=== PATIENT | male | born 1945 | race Hispanic/Latino ===

== ENCOUNTER 2018-05-13 13:10 | Inpatient (IN) | payer BC, MEDICARE ==
--- NOTE | 2018-05-13 13:39 | ED PDOC ---
Arrival/HPI - General Chief Complaint: Abdominal Pain Time Seen by Provider: 05/13/18 13:29 Historian: Patient - History of Present Illness Narrative History of Present Illness (Text): 05/13/18 13:325 73 year old male, whose PMH includes cholecystectomy and psych disorder, who presents to the emergency department complaining of right upper quadrant pain since a couple of days. Patient reports the pain is similar to his PMH of cholecystectomy back in 2014. Patient has not taken any medication and home and refuses pain medication in the emergency department. Patient denies fever, n/v/d , dysruia, shortness of breath, chest pain, headache, or other complaints. PMD: Dr. Gtz Time/Duration: < week Symptom Onset: Gradual Symptom Course: Unchanged Context: Home Past Medical History - Provider Review Nursing Documentation Reviewed: Yes - Cardiac Hx Cardiac Disorders: No - Pulmonary Hx Respiratory Disorders: Yes Hx Pneumonia: Yes - Neurological Hx Neurological Disorder: No - HEENT Hx HEENT Disorder: No - Renal Hx Renal Disorder: No - Endocrine/Metabolic Hx Endocrine Disorders: No - Hematological/Oncological Hx Blood Disorders: No - Integumentary Hx Dermatological Disorder: No - Musculoskeletal/Rheumatological Hx Musculoskeletal Disorders: No (sciatica) - Gastrointestinal Hx Gastrointestinal Disorders: Yes Hx Gall Bladder Disease: Yes Hx Gastroesophageal Reflux: Yes - Genitourinary/Gynecological Hx Genitourinary Disorders: Yes Hx Prostate Problems: Yes - Psychiatric Hx Psychophysiologic Disorder: Yes Hx Depression: Yes Hx Substance Use: No - Surgical History Hx Cholecystectomy: Yes Other/Comment: PROSTATE - Anesthesia Hx Anesthesia Reactions: No Hx Malignant Hyperthermia: No Family/Social History - Physician Review Nursing Documentation Reviewed: Yes Family/Social History: Unknown Family HX Smoking Status: Never Smoked Hx Alcohol Use: No (social) Hx Substance Use: No Allergies/Home Meds Allergies/Adverse Reactions: Allergies No Known Allergies Allergy (Verified 05/13/18 13:14) Home Medications: Home Meds Medication Instructions Recorded Confirmed Escitalopram Oxalate [Lexapro] 5 mg PO DAILY 05/13/18 05/13/18 clonazePAM [Klonopin] 0.5 mg PO BID 05/13/18 05/13/18 Review of Systems - Physician Review All systems were reviewed & negative as marked: Yes - Review of Systems Constitutional: absent: Fevers Respiratory: absent: SOB Cardiovascular: absent: Chest Pain Gastrointestinal: Abdominal Pain (right upper quadrant ) Physical Exam Vital Signs Reviewed: Yes Vital Signs Temp Pulse Resp BP Pulse Ox 05/13/18 17:30 98 H 18 137/77 94 L 05/13/18 15:11 90 18 140/78 95 05/13/18 13:18 99.9 F H 107 H 16 127/77 95 Temperature: Febrile Blood Pressure: Normal Pulse: Tachycardic Respiratory Rate: Normal Appearance: Positive for: Well-Appearing, Non-Toxic, Comfortable Pain Distress: None Mental Status: Positive for: Alert and Oriented X 3 - Systems Exam Head: Present: Atraumatic, Normocephalic Pupils: Present: PERRL Extroacular Muscles: Present: EOMI Conjunctiva: Present: Normal Respiratory/Chest: Present: Clear to Auscultation, Good Air Exchange. No: Respiratory Distress, Accessory Muscle Use, Wheezes, Decreased Breath Sounds, Rales, Retracting, Rhonchi Cardiovascular: Present: Regular Rate and Rhythm, Normal S1, S2. No: Murmurs Abdomen: Present: Tenderness (RUQ), Normal Bowel Sounds. No: Distention, Peritoneal Signs, Rebound, Guarding Neurological: Present: GCS=15, CN II-XII Intact, Speech Normal Skin: Present: Warm, Dry, Normal Color. No: Rashes Psychiatric: Present: Alert, Oriented x 3, Normal Insight, Normal Concentration Medical Decision Making ED Course and Treatment: 05/13/18 13:40 Impression: 73 year old male with right upper quadrant tenderness complaining of abdominal pain for a couple of days. Plan: -- CT abdomen and pelvis -- Reassess and disposition Prior Visits: Notes and results from previous visits were reviewed. Progress Notes: 05/13/18 17:39 CT scan diagnosed acute appendicitis. Patient has been informed of his diagnosis and treatment plan. Patient states his last meal was at 12:30. Case was also discussed with physician president, and agree to admit patient under Dr. Madden's care. - Lab Interpretations Lab Results: 05/13/18 14:30 05/13/18 14:30 Lab Results 05/13/18 14:30: Sodium 137, Potassium 3.8, Chloride 95 L, Carbon Dioxide 31, Anion Gap 14, BUN 18, Creatinine 1.1, Est GFR ( Amer) > 60, Est GFR (Non- Af Amer) > 60, Random Glucose 165 H, Calcium 8.8, Phosphorus 1.9 L, Magnesium 1.9, Total Bilirubin 2.7 H, Direct Bilirubin 0.2, AST 19, ALT 18, Alkaline Phosphatase 50, Total Protein 7.0, Albumin 4.0, Globulin 3.0, Albumin/Globulin Ratio 1.3, Amylase 49, Lipase 16 L 05/13/18 14:30: PT 17.0 H, INR 1.48 05/13/18 14:30: WBC 12.4 H, RBC 5.36, Hgb 15.5, Hct 46.4, MCV 86.6, MCH 28.9, MCHC 33.4, RDW 13.9, Plt Count 127, MPV 10.0, Gran % 91.0 H, Lymph % (Auto) 5.8 L, [place] % (Auto) 3.1, Eos % (Auto) 0.0 L, Baso % (Auto) 0.1, Gran # 11.27 H, Lymph # (Auto) 0.7 L, [place] # (Auto) 0.4, Eos # (Auto) 0.0, Baso # (Auto) 0.01, Neutrophils % (Manual) 90 H, Lymphocytes % (Manual) 5 L, Monocytes % (Manual) 1 , Eosinophils % (Manual) 1, Metamyelocytes % 2, Myelocytes % 1, Platelet Evaluation Normal I have reviewed the lab results: Yes - RAD Interpretation Radiology Orders: 05/13/18 13:32 ABD PELVIS PO & IV CONTRAST [CT] Stat 05/13/18 17:48 ABSCESS DRAINAGE [CT] Stat Grinder Hand: Radiologist - Medication Orders Current Medication Orders: Hydromorphone HCl (Dilaudid) 0.5 mg IVP Q4H PRN PRN Reason: Pain, moderate (4-7) Metronidazole (Flagyl) 500 mg in 100 mls @ 100 mls/hr IVPB STAT STA PRN Reason: Protocol Stop: 05/13/18 18:26 Levofloxacin/Dextrose (Levaquin 750mg) 750 mg in 150 mls @ 100 mls/hr IVPB STAT STA PRN Reason: Protocol Stop: 05/13/18 18:56 Sodium Chloride (Sodium Chloride 0.9%) 1,000 mls @ 100 mls/hr IV .Q10H SAIGE Discontinued Medications Morphine Sulfate (Morphine) 4 mg IVP STAT STA Stop: 05/13/18 17:27 Last Admin: 05/13/18 17:32 Dose: 4 mg MAR Pain Assessment Document 05/13/18 17:32 GMD (Rec: 05/13/18 17:32 GMD [id number]) Pain Reassessment Is this a pain reassessment? No Presence of Pain Presence of Pain Yes Pain Scale Used Pain Scale Used Numeric Description Intensity of Pain at present 7 IVP Administration Document 05/13/18 17:32 GMD (Rec: 05/13/18 17:32 GMD [id number]) Charges for Administration # of IVP Administrations 1 Ondansetron HCl (Zofran Inj) 4 mg IVP STAT STA Stop: 05/13/18 17:27 Last Admin: 05/13/18 17:32 Dose: 4 mg IVP Administration Document 05/13/18 17:32 GMD (Rec: 05/13/18 17:32 GMD [id number]) Charges for Administration # of IVP Administrations 1 - Scribe Statement The provider has reviewed the documentation as recorded by the Scribe Scribe Attestation: Cata Guerrero MD Scribe Attestation: All medical record entries made by the Scribe were at my direction and personally dictated by me. I have reviewed the chart and agree that the record accurately reflects my personal performance of the history, physical exam, medical decision making, and the department course for this patient. I have also personally directed, reviewed, and agree with the discharge instructions and disposition. Disposition/Present on Arrival - Present on Arrival Any Indicators Present on Arrival: No History of DVT/PE: No History of Uncontrolled Diabetes: No Urinary Catheter: No History of Decub. Ulcer: No History Surgical Site Infection Following: None - Disposition Have Diagnosis and Disposition been Completed?: Yes Diagnosis: Acute appendicitis Disposition Time: 17:59 Patient Plan: Admission, Other (Regular Medical Floor) Condition: GOOD Referrals: Cliff Gtz MD [Primary Care Provider] - Follow up with primary Forms: Values of n (Israeli)
[2018-05-13] MEDS ORDERED: Iohexol 240 (50 ml) ONE (13:41)
[2018-05-13 14:51] LABS: BASO # 0.01 K/mm3 (0.0-2.0); BASO % 0.1 % (0.0-3.0); GRAN # 11.27 (1.4-6.5); HEMOGLOBIN 15.5 g/dL (14.0-18.0); LYMPH # 0.7 (1.2-3.4); LYMPH % 5.8 % (22.0-35.0); MEAN CELL VOLUME 86.6 fl (80.0-105.0); MEAN CORPUSCULAR HEMOGLOBIN 28.9 pg (25.0-35.0); MEAN CORPUSCULAR HGB CONC 33.4 g/dl (31.0-37.0); MONO # 0.4 (0.1-0.6); MONO % 3.1 % (1.0-6.0); PLATELET COUNT 127 10^3/uL (120.0-450.0); RBC 5.36 10^6/uL (3.5-6.1); RED CELL DISTRIBUTION WIDTH 13.9 % (11.5-14.5); WHITE BLOOD COUNT 12.4 10^3/ul (4.5-11.0)
[2018-05-13 15:07] LABS: ALB/GLOB RATIO 1.3 (1.1-1.8); ALT/SGPT 18 U/L (7-56); AMYLASE 49 U/L (35-125); AST/SGOT 19 U/L (17-59); BILIRUBIN,DIRECT 0.2 mg/dL (0.0-0.4); BLOOD UREA NITROGEN 18 mg/dL (7-21); CALCIUM 8.8 mg/dL (8.4-10.5); GFR AFRICAN-AMERICAN > 60; GFR NON-AFRICAN AMERICAN > 60; INR 1.48; LIPASE 16 U/L (23-300)
[2018-05-13 15:20] LABS: EOSINOPHIL 1 % (0.0-3.0); LYMPHOCYTE 5 % (22.0-35.0); METAMYELOCYTE 2 %; MONOCYTE 1 % (1.0-6.0); MYELOCYTE 1 %; NEUTROPHIL 90 % (50.0-70.0); PLATELET ESTIMATE NORMAL (NORMAL)
[2018-05-13] MEDS ORDERED: Iohexol 350 MG/100 ML VIAL ONE (15:35)
[2018-05-13] MEDS ORDERED: Morphine 4 mg/ml ISec IVP STA (17:26)
[2018-05-13] MEDS ORDERED: metroNIDAZOLE IV 500 mg/100 ml 500 MG/100 ML BAG IVPB STA (17:27)
[2018-05-13] MEDS ORDERED: levoFLOXacin 750 mg in D5W 750 MG/150 ML BAG IVPB STA (17:27)
--- NOTE | 2018-05-13 17:30 | CT ---
Date of service: 05/13/2018 PROCEDURE: CT Abdomen and Pelvis with contrast HISTORY: RUQ PAIN, S/P [facility] 2014 COMPARISON: 07/06/2013 TECHNIQUE: Contrast dose: 100 cc of Omni 350 Radiation dose: Total exam DLP = 1070 mGy-cm. This CT exam was performed using one or more of the following dose reduction techniques: Automated exposure control, adjustment of the mA and/or kV according to patient size, and/or use of iterative reconstruction technique. FINDINGS: LOWER THORAX: Unremarkable. LIVER: Unremarkable. No gross lesion or ductal dilatation. GALLBLADDER AND BILE DUCTS: Unremarkable. PANCREAS: Unremarkable. No gross lesion or ductal dilatation. SPLEEN: Unremarkable. ADRENALS: Unremarkable. No mass. KIDNEYS AND URETERS: Unremarkable. No hydronephrosis. No solid mass. VASCULATURE: Unremarkable. No aortic aneurysm. BOWEL: Unremarkable. No obstruction. No gross mural thickening. APPENDIX: There is evidence of acute appendicitis. Inflammatory changes are seen in the mesentery. The appendix is directed superiorly laterally and is non-opacified measuring 10 mm in diameter. There is also mural thickening in the adjacent cecum. There is a small fluid collection and extra luminal gas adjacent to the cecum consistent with an appendiceal abscess. This measures 3 cm in length by 1.6 cm diameter. There is also some inflammation and thickening of the right lateral abdominal wall. PERITONEUM: There is a well-circumscribed fluid collection on the left side of the pelvis adjacent to the bladder. This is of uncertain significance. There is no air within this collection to suggest abscess. This measures 32 x 49 mm. LYMPH NODES: Unremarkable. No enlarged lymph nodes. BLADDER: Unremarkable. REPRODUCTIVE: Unremarkable. BONES: No acute fracture. OTHER FINDINGS: The findings were discussed with Dr. Mcgovern at 5:20 p.m. IMPRESSION: Acute appendicitis with probable small appendiceal abscess. There is also mural thickening in the cecum and thickening of the abdominal wall.
[2018-05-13] MEDS: Sodium Chloride 0.9% 1,000 ML IV SCH (18:09)
--- NOTE | 2018-05-13 18:46 | CP.PCM.HP ---
History of Present Illness - History of Present Illness History of Present Illness: Surgery 73 M w PMH of depression prostate CA and PSH of cholecystectomy , prostatectomy came with RLQ abd pain. Pain started 1 week ago and but went away. Pain recurred yesterday. Localized, sharp pain. Radiates to his R back. Denies fever , nausea, vomiting, diarrhea, CP , SOB, dysuria, hematuria, hematochezia, hematemesis. Has Leukocytosis w L shift. CT shows acute appendiciti with possible 3x1.5cm abscess and cecal thickening. Reports anorexia. Pt is consented for OR tomorrow AM for appendectomy. PMH see above PSH see above Meds lexapro, abilify Present on Admission - Present on Admission Any Indicators Present on Admission: No Review of Systems - Review of Systems Review of Systems: See HPI Past Patient History - Past Social History Smoking Status: Never Smoked - CARDIAC Hx Cardiac Disorders: No - PULMONARY Hx Respiratory Disorders: Yes Hx Pneumonia: Yes - NEUROLOGICAL Hx Neurological Disorder: No - HEENT Hx HEENT Problems: No - RENAL Hx Chronic Kidney Disease: No - ENDOCRINE/METABOLIC Hx Endocrine Disorders: No - HEMATOLOGICAL/ONCOLOGICAL Hx Blood Disorders: No - INTEGUMENTARY Hx Dermatological Problems: No - MUSCULOSKELETAL/RHEUMATOLOGICAL Hx Musculoskeletal Disorders: No (sciatica) - GASTROINTESTINAL Hx Gastrointestinal Disorders: Yes Hx Gall Bladder Disease: Yes Hx Gastroesophageal Reflux: Yes - GENITOURINARY/GYNECOLOGICAL Hx Genitourinary Disorders: Yes Hx Prostate Problems: Yes - PSYCHIATRIC Hx Psychophysiologic Disorder: Yes Hx Depression: Yes Hx Substance Use: No - SURGICAL HISTORY Hx Cholecystectomy: Yes Other/Comment: PROSTATE - ANESTHESIA Hx Anesthesia Reactions: No Hx Malignant Hyperthermia: No Meds Allergies/Adverse Reactions: Allergies Allergy/AdvReac Type Severity Reaction Status Date / Time No Known Allergies Allergy Verified 05/13/18 13:14 Physical Exam - Constitutional Appears: Non-toxic - Head Exam Head Exam: ATRAUMATIC, NORMAL INSPECTION, NORMOCEPHALIC - Eye Exam Eye Exam: EOMI, Normal appearance, PERRL Pupil Exam: NORMAL ACCOMODATION, PERRL - ENT Exam ENT Exam: Mucous Membranes Moist, Normal Exam - Neck Exam Neck exam: Positive for: Normal Inspection - Respiratory Exam Respiratory Exam: NORMAL BREATHING PATTERN - Cardiovascular Exam Cardiovascular Exam: REGULAR RHYTHM - GI/Abdominal Exam GI & Abdominal Exam: Normal Bowel Sounds, Rebound, Soft, Tenderness. absent: Distended, Firm, Guarding, Hernia, Rigid Additional comments: RLQ TTP. - Extremities Exam Extremities exam: Positive for: normal inspection - Back Exam Back exam: NORMAL INSPECTION - Neurological Exam Neurological exam: Alert, CN II-XII Intact, Normal Gait, Oriented x3, Reflexes Normal - Psychiatric Exam Psychiatric exam: Normal Affect, Normal Mood - Skin Skin Exam: Dry, Intact, Normal Color, Warm Results - Vital Signs Recent Vital Signs: Last Vital Signs Temp 99.9 F H 05/13/18 13:18 Pulse 98 H 05/13/18 17:30 Resp 18 05/13/18 17:30 BP 137/77 05/13/18 17:30 Pulse Ox 94 L 05/13/18 17:30 - Labs Result Diagrams: 05/13/18 14:30 05/13/18 14:30 Assessment & Plan - Assessment and Plan (Free Text) Assessment: acute Appendicitis WBC 12.[address] acute appy poss 3x1.5cm abscess and loculated fluid collection -OR tomorrow AM lap appy -NPO -IVF -ABX -Nuaea/pain control -DVT/Gi ppx PETROS Neely
[2018-05-13 20:27] LABS: URINE BILIRUBIN NEGATIVE (NEGATIVE); URINE BLOOD SMALL (NEGATIVE); URINE GLUCOSE (UA) NEGATIVE (NEGATIVE); URINE LEUKOCYTE ESTERASE NEGATIVE Leu/uL (NEGATIVE); URINE PROTEIN 30 mg/dL (<30 mg/dL)
[2018-05-13 20:33] LABS: URINE APPEARANCE CLEAR (CLEAR); URINE COLOR YELLOW (YELLOW)
[2018-05-13 20:48] LABS: URINE BACTERIA MOD (NEG)
[2018-05-14] MEDS ORDERED: Piperacillin/Tazobact 3.375 gm 100 ML IVPB SCH
[2018-05-14] MEDS: Piperacillin/Tazobact 3.375 gm 100 ML IVPB SCH ×5 (00:30→23:01)
[2018-05-14 03:22] VITALS: BMI 25.1
[2018-05-14] MEDS: Sodium Chloride 0.9% 1,000 ML IV SCH ×4 (06:46→23:01)
[2018-05-14 07:49] LABS: EOS % 0.2 % (1.5-5.0); GRAN # 9.23 (1.4-6.5); GRAN % 90.2 % (50.0-68.0); HEMOGLOBIN 13.3 g/dL (14.0-18.0); LYMPH # 0.5 (1.2-3.4); MEAN CELL VOLUME 85.8 fl (80.0-105.0); MEAN CORPUSCULAR HEMOGLOBIN 28.1 pg (25.0-35.0); MEAN CORPUSCULAR HGB CONC 32.8 g/dl (31.0-37.0); MONO # 0.5 (0.1-0.6); MONO % 4.6 % (1.0-6.0); RBC 4.73 10^6/uL (3.5-6.1); RED CELL DISTRIBUTION WIDTH 13.9 % (11.5-14.5); WHITE BLOOD COUNT 10.2 10^3/ul (4.5-11.0)
[2018-05-14 08:11] LABS: ALB/GLOB RATIO 1.1 (1.1-1.8); ALBUMIN 3.3 g/dL (3.0-4.8); ALT/SGPT 54 U/L (7-56); AST/SGOT 50 U/L (17-59); BLOOD UREA NITROGEN 17 mg/dL (7-21); CALCIUM 7.8 mg/dL (8.4-10.5); GFR AFRICAN-AMERICAN > 60; GFR NON-AFRICAN AMERICAN > 60
--- NOTE | 2018-05-14 09:59 | RAD ---
Date of service: 05/14/2018 HISTORY: OR today COMPARISON: 07/12/2013 FINDINGS: LUNGS: The lungs are well inflated and clear. PLEURA: No significant pleural effusion identified, no pneumothorax apparent. CARDIOVASCULAR: Normal. OSSEOUS STRUCTURES: No significant abnormalities. VISUALIZED UPPER ABDOMEN: Normal. OTHER FINDINGS: None. IMPRESSION: No active pulmonary disease.
--- NOTE | 2018-05-14 18:02 | CP.PCM.CON ---
History of Present Illness - History of Present Illness History of Present Illness: 73 year old male with PMH of S/P cholecystectomy, S/P prostatectomy, history of depression, history of pneumonia came in to [facility] complaining of right lower quadrant pain, which started a week ago, and it was mild at the time. It was initially vague, then became localized to the RLQ area, associated with nausea. He denies having fever or chills, no vomiting, no diarrhea, no melena, no hematochezia, no chest pain, no SOB, no headache or dizziness, no sore throat, no dysuria. CT scan is showing acute appendicitis with probable abscess formation. Infectious Diseases consult is requested to further evaluate and manage. Review of Systems - Review of Systems All systems: reviewed and no additional remarkable complaints except (as per HPI ) Past Patient History - Past Social History Smoking Status: Never Smoked - CARDIAC Hx Cardiac Disorders: No - PULMONARY Hx Respiratory Disorders: Yes Hx Pneumonia: Yes - NEUROLOGICAL Hx Neurological Disorder: No - HEENT Hx HEENT Problems: No - RENAL Hx Chronic Kidney Disease: No - ENDOCRINE/METABOLIC Hx Endocrine Disorders: No - HEMATOLOGICAL/ONCOLOGICAL Hx Blood Transfusions: No Hx Blood Transfusion Reaction: No - INTEGUMENTARY Hx Dermatological Problems: No - MUSCULOSKELETAL/RHEUMATOLOGICAL Hx Musculoskeletal Disorders: Yes (sciatica) Hx Falls: No - GASTROINTESTINAL Hx Gastrointestinal Disorders: Yes Hx Gall Bladder Disease: Yes (Cholecystectomy) Hx Gastroesophageal Reflux: Yes - GENITOURINARY/GYNECOLOGICAL Hx Genitourinary Disorders: Yes Hx Prostate Problems: Yes (prostate ca with prostatectomy) - PSYCHIATRIC Hx Psychophysiologic Disorder: Yes Hx Depression: Yes Hx Substance Use: No - SURGICAL HISTORY Hx Surgeries: Yes - ANESTHESIA Hx Anesthesia Reactions: No Hx Malignant Hyperthermia: No Meds Allergies/Adverse Reactions: Allergies Allergy/AdvReac Type Severity Reaction Status Date / Time No Known Allergies Allergy Verified 05/13/18 13:14 - Medications Medications: Current Medications Acetaminophen (Tylenol 650 Mg Supp) 650 mg RC Q4H PRN PRN Reason: Fever >100.4 F Acetaminophen (Tylenol 325mg Tab) 650 mg PO Q6H PRN PRN Reason: Fever >100.4 F Hydromorphone HCl (Dilaudid) 0.5 mg IVP Q4H PRN PRN Reason: Pain, moderate (4-7) Piperacillin Sod/Tazobactam Sod (Zosyn 3.375 In Ns 100ml) 100 mls @ 200 mls/hr IVPB Q6 SAIGE PRN Reason: Protocol Stop: 05/23/18 00:01 Last Admin: 05/14/18 06:33 Dose: 200 mls/hr Sodium Chloride (Sodium Chloride 0.9%) 1,000 mls @ 150 mls/hr IV .Q6H40M SAIGE Ondansetron HCl (Zofran Inj) 4 mg IVP Q4 PRN PRN Reason: Nausea/Vomiting Physical Exam - Constitutional Appears: Non-toxic - Head Exam Head Exam: NORMAL INSPECTION - ENT Exam ENT Exam: Mucous Membranes Moist - Neck Exam Neck exam: Negative for: Meningismus - Respiratory Exam Respiratory Exam: Decreased Breath Sounds - Cardiovascular Exam Cardiovascular Exam: +S1, +S2 - GI/Abdominal Exam GI & Abdominal Exam: Soft, Tenderness. absent: Distended, Firm, Guarding, Rebound, Rigid Results - Vital Signs Recent Vital Signs: Last Vital Signs Temp 98.1 F 05/14/18 09:04 Pulse 74 05/14/18 09:04 Resp 18 05/14/18 09:04 BP 127/67 05/14/18 09:04 Pulse Ox 96 05/14/18 09:04 - Labs Result Diagrams: 05/14/18 06:00 05/14/18 06:00 Labs: Laboratory Results - last 24 hr 05/13/18 05/14/18 05/14/18 20:05 06:00 06:00 WBC 10.2 RBC 4.73 Hgb 13.3 L D Hct 40.6 L MCV 85.8 MCH 28.1 MCHC 32.8 RDW 13.9 Plt Count 104 L MPV 10.0 Gran % 90.2 H Lymph % (Auto) 5.0 L [place] % (Auto) 4.6 Eos % (Auto) 0.2 L Baso % (Auto) 0.0 Gran # 9.23 H Lymph # (Auto) 0.5 L [place] # (Auto) 0.5 Eos # (Auto) 0.0 Baso # (Auto) 0.00 Sodium 138 Potassium 3.7 Chloride 99 Carbon Dioxide 31 Anion Gap 12 BUN 17 Creatinine 1.0 Est GFR ( Amer) > 60 Est GFR (Non-Af Amer) > 60 Random Glucose 101 Calcium 7.8 L Total Bilirubin 3.1 H AST 50 ALT 54 Alkaline Phosphatase 80 Total Protein 6.2 Albumin 3.3 Globulin 2.9 Albumin/Globulin Ratio 1.1 Urine Color Yellow Urine Appearance Clear Urine pH 6.0 Ur Specific [place] 1.010 Urine Protein 30 H Urine Glucose (UA) Negative Urine Ketones Negative Urine Blood Small H Urine Nitrate Negative Urine Bilirubin Negative Urine Urobilinogen 2.0 H Ur Leukocyte Esterase Negative Urine RBC 5 - 10 Urine WBC 2 - 5 Ur Epithelial Cells 3 - 4 Urine Bacteria Mod Assessment & Plan - Assessment and Plan (Free Text) Plan: Assessment Acute appendicitis with appendiceal abscess S/P cholecystectomy S/P prostatectomy history of depression history of pneumonia Plan Started Zosyn pending blood cx, OR cx and pathology - patient is for surgery today will monitor clinically
[2018-05-14] MEDS ORDERED: DiphenhydrAMINE 50 mg/ml Inj IVP STA (20:58)
--- NOTE | 2018-05-14 22:38 | CARD ---
APPROVED REPORT Date of service: 05/14/2018 EKG Measurement Heart [id number] <Conclusion> Normal sinus rhythm Normal ECG
[2018-05-15] MEDS: Piperacillin/Tazobact 3.375 gm 100 ML IVPB SCH ×3 (05:59→19:12)
[2018-05-15 06:58] LABS: HEMOGLOBIN 12.7 g/dL (14.0-18.0); MEAN CELL VOLUME 84.3 fl (80.0-105.0); MEAN CORPUSCULAR HEMOGLOBIN 28.5 pg (25.0-35.0); MEAN CORPUSCULAR HGB CONC 33.8 g/dl (31.0-37.0); MEAN PLATELET VOLUME 10.4 fl (7.0-11.0); RBC 4.46 10^6/uL (3.5-6.1); RED CELL DISTRIBUTION WIDTH 13.7 % (11.5-14.5); WHITE BLOOD COUNT 9.7 10^3/ul (4.5-11.0)
--- NOTE | 2018-05-15 07:03 | CON ---
Copied To: Robert Olivares MD Attending MD: Robert Olivares MD DATE: 05/14/2018 CHIEF COMPLAINT AND HISTORY OF PRESENT ILLNESS: This is a 73-year-old male, who is coming to the hospital complaining of right-sided abdominal pain and the patient states that this right-sided abdominal pain started about a week ago, this has been progressively getting worse. He came in for further evaluation. The patient does have a history of cholecystectomy done in 2014. He states that his pain is controlled, it is better than when he first came into the hospital. He has no complaints of any fevers or chills. No nausea. No vomiting. He is also complaining of pain that went into the right side of his back. He had a CAT scan done that showed acute appendicitis, the possible abscess was 3 x 1.5 cm. He is scheduled to go to the OR today. REVIEW OF SYMPTOMS: All other review of symptoms are within normal limits except what was mentioned. ALLERGIES: HE HAS NO KNOWN DRUG ALLERGIES. HOME MEDICATIONS: Have been reviewed on the [facility]. He is on Lexapro and Abilify. PAST SURGICAL HISTORY: Cholecystectomy and prostatectomy. PAST MEDICAL HISTORY: Prostate cancer and depression. SOCIAL HISTORY: He denies alcohol. PHYSICAL EXAMINATION: VITAL SIGNS: Temperature is 99.9, pulse of 107, blood pressure is 127/77, respirations 16, O2 saturation is 95%. GENERAL: The patient lying in bed, uncomfortable, and in no acute distress. HEENT: Atraumatic and normocephalic. Anicteric sclerae. Moist mucosa. [address] conjunctivae. No oral lesions. NECK: No JVD, anterior and posterior adenopathy, thyromegaly, or bruits. CARDIOVASCULAR: S1 and S2 regular. No murmur, rubs, or gallop. LUNGS: Clear to auscultation bilaterally. No wheezes, rales, or rhonchi. ABDOMEN: Bowel sounds are positive. Soft, has right-sided lower abdominal tenderness. No rebound and no guarding. EXTREMITIES: No cyanosis, clubbing, or edema. NEUROLOGIC: No facial asymmetry. Tongue is midline. No uvula deviation. Power is 5/5 upper extremity and lower extremity. Sensation intact in upper extremity and lower extremity. PSYCHIATRIC: He is awake, alert and oriented x3. No anxiety or depression. He has normal affect. GENITOURINARY: No CVA tenderness. VASCULAR: 2+ pulses in the carotid pulses and pedal pulses. SKIN: No erythema or nodules SPINE: Shows normal curvature. LABORATORY DATA: Labs have been reviewed. White count of 12.4. He has a creatinine of 1.1. His chest x-ray showed no infiltrates. CT scan done and was reviewed, which showed an acute appendicitis. ASSESSMENT: 1. Acute appendicitis. 2. Depression. 3. Dyslipidemia. 4. History of cholecystectomy. 5. . 6. Prostate cancer, with prostatectomy. PLAN: The patient is admitted to the hospital. He is on Dilaudid for pain. The patient is receiving IV fluids. I will decrease the patient's IV fluids. on Tylenol for pain. The patient is receiving Zofran is on antibiotics Zosyn. I have asked Dr. Melendrez to evaluate the patient. The patient has white count that is improved. He is back to normal. He has blood cultures. I did not see blood cultures ordered. The patient is on clear liquid diet. The patient is at risk of having delirium given his age and be in the hospital requiring surgical intervention. We will continue to follow the patient closely. Robert Olivares MD
[2018-05-15] MEDS: Sodium Chloride 0.9% 1,000 ML IV SCH (08:00)
[2018-05-15 08:04] LABS: BLOOD UREA NITROGEN 10 mg/dL (7-21); CALCIUM 7.6 mg/dL (8.4-10.5); GFR AFRICAN-AMERICAN > 60; GFR NON-AFRICAN AMERICAN > 60
[2018-05-15 08:08] LABS: ALB/GLOB RATIO 1.1 (1.1-1.8); ALT/SGPT 40 U/L (7-56); AST/SGOT 30 U/L (17-59)
--- NOTE | 2018-05-15 08:25 | CP.PCM.PN ---
Subjective - Date & Time of Evaluation Date of Evaluation: 05/15/18 Time of Evaluation: 07:00 - Subjective Subjective: General Surgery progress note for Dr Madden. Pt seen and examined this morning. Pt states he has mild left sided abdominal tenderness, but he is tolerating the pain well. Pt denies any other complaints at this time. Objective - Vital Signs/Intake and Output Vital Signs (last 24 hours): Temp Pulse Resp BP Pulse Ox 99.5 F 77 19 138/72 95 05/14/18 21:52 05/14/18 18:00 05/14/18 18:00 05/14/18 18:00 05/14/18 18:00 Intake and Output: 05/15/18 05/15/18 06:59 18:59 Intake Total 1760 Output Total 1000 Balance 760 - Medications Medications: Current Medications Acetaminophen (Tylenol 650 Mg Supp) 650 mg RC Q4H PRN PRN Reason: Fever >100.4 F Acetaminophen (Tylenol 325mg Tab) 650 mg PO Q6H PRN PRN Reason: Fever >100.4 F Hydromorphone HCl (Dilaudid) 0.5 mg IVP Q4H PRN PRN Reason: Pain, moderate (4-7) Piperacillin Sod/Tazobactam Sod (Zosyn 3.375 In Ns 100ml) 100 mls @ 200 mls/hr IVPB Q6 [facility] PRN Reason: Protocol Stop: 05/23/18 00:01 Last Admin: 05/15/18 05:59 Dose: 200 mls/hr Sodium Chloride (Sodium Chloride 0.9%) 1,000 mls @ 100 mls/hr IV .Q10H [facility] Last Admin: 05/14/18 23:01 Dose: 100 mls/hr Ondansetron HCl (Zofran Inj) 4 mg IVP Q4 PRN PRN Reason: Nausea/Vomiting - Labs Labs: 05/15/18 06:20 05/15/18 06:20 PT 17.0 SECONDS (9.4-12.5) H 05/13/18 14:30 INR 1.48 05/13/18 14:30 - Constitutional Appears: No Acute Distress - Head Exam Head Exam: ATRAUMATIC, NORMOCEPHALIC - Eye Exam Eye Exam: EOMI, Normal appearance - ENT Exam ENT Exam: Mucous Membranes Moist - Neck Exam Neck Exam: Full ROM - Respiratory Exam Respiratory Exam: Clear to Ausculation Bilateral, NORMAL BREATHING PATTERN. absent: Accessory Muscle Use, Wheezes, Respiratory Distress, Stridor - Cardiovascular Exam Cardiovascular Exam: REGULAR RHYTHM, RRR, +S1, +S2. absent: Bradycardia, Tachycardia, JVD - GI/Abdominal Exam GI & Abdominal Exam: Soft, Tenderness, Normal Bowel Sounds Additional comments: mild left sided tenderness to palpation - Extremities Exam Extremities Exam: Full ROM, Normal Inspection. absent: Calf Tenderness, Pedal Edema, Tenderness - Back Exam Back Exam: Full ROM, NORMAL INSPECTION. absent: CVA tenderness (L), CVA tenderness (R) - Neurological Exam Neurological Exam: Alert, Awake - Psychiatric Exam Psychiatric exam: Normal Affect, Normal Mood - Skin Skin Exam: Dry, Normal Color, Warm Assessment and Plan - Assessment and Plan (Free Text) Assessment: 73 year old male with perforated appendicitis Plan: -advance diet as tolerated -continue IV antibiotics -surgery not indicated at this time -Repeat CT abd/pelvis in 2-3 days -wait 6-8 weeks for interval appendectomy -will monitor clinically -Discussed with Dr. Chano Hayes PGY1
[2018-05-15] MEDS ORDERED: Potassium Phosphate 3 mmol/ml Inj IV ONE (08:32)
[2018-05-15] MEDS ORDERED: Potassium Phosphate 30 MMOLE in Sodium Chloride 0.9% 250 ML IVPB ONE (09:15)
--- NOTE | 2018-05-15 11:13 | CP.PCM.CON ---
History of Present Illness - History of Present Illness History of Present Illness: PGY-3 infectious disease consult for Dr. Huynh's service 78 yo female with past medical history of CAD, Diabetes, PAD, peripheral neuropathy, and previous amputations of the left great toe and right second toe , presented to the Emergency department for evaluation of worsening right 3rd toe infection. Patient states she first noticed a small infectious of the right second few months ago and was seeing podiatry. She states that despite this the ulcer continued to worsen. She was started on Vibramycin by podiatry about one week however, symptoms worsened since then. Patient was seen in the wound care center and was referred to the Emergency department for evaluation. Patient states that she had similar symptoms in the left foot with her left 2nd toes also appearing red. She also reports previous heel ulcer of both feet, and states that her ophthalmic lens inspector told her that the right heel ulcer is worsening. Patient denies any pain, stating that both feet ore numb. Patient denies any fever, chills, nausea, vomiting, diarrhea, abdominal pain, chest pain, shortness of breath, trauma or any other complaints. PMH: CAD, PAD, Hypercholesterolemia, HTN, diabetes on insulin, hypothyriodism, GERD, peripheral neuropathy PSH: Amputation of left 1st toes, right 2nd toe, left hip repair, carpal tunnel and cubital tunnel, cataract extraction social history: denies smoking or illicit drug use, occasional alcohol use allergy: penicillins- rash and pruritus family history: father had diabetes require below knee amputation Review of Systems - Review of Systems All systems: reviewed and no additional remarkable complaints except Past Patient History - Past Social History Smoking Status: Never Smoked - CARDIAC Hx Cardiac Disorders: No - PULMONARY Hx Respiratory Disorders: Yes Hx Pneumonia: Yes - NEUROLOGICAL Hx Neurological Disorder: No - HEENT Hx HEENT Problems: No - RENAL Hx Chronic Kidney Disease: No - ENDOCRINE/METABOLIC Hx Endocrine Disorders: No - HEMATOLOGICAL/ONCOLOGICAL Hx Blood Transfusions: No Hx Blood Transfusion Reaction: No - INTEGUMENTARY Hx Dermatological Problems: No - MUSCULOSKELETAL/RHEUMATOLOGICAL Hx Musculoskeletal Disorders: Yes (sciatica) Hx Falls: No - GASTROINTESTINAL Hx Gastrointestinal Disorders: Yes Hx Gall Bladder Disease: Yes (Cholecystectomy) Hx Gastroesophageal Reflux: Yes - GENITOURINARY/GYNECOLOGICAL Hx Genitourinary Disorders: Yes Hx Prostate Problems: Yes (prostate ca with prostatectomy) - PSYCHIATRIC Hx Psychophysiologic Disorder: Yes Hx Depression: Yes Hx Substance Use: No - SURGICAL HISTORY Hx Surgeries: Yes - ANESTHESIA Hx Anesthesia Reactions: No Hx Malignant Hyperthermia: No Meds Allergies/Adverse Reactions: Allergies Allergy/AdvReac Type Severity Reaction Status Date / Time No Known Allergies Allergy Verified 05/13/18 13:14 - Medications Medications: Current Medications Acetaminophen (Tylenol 650 Mg Supp) 650 mg RC Q4H PRN PRN Reason: Fever >100.4 F Acetaminophen (Tylenol 325mg Tab) 650 mg PO Q6H PRN PRN Reason: Fever >100.4 F Last Admin: 05/15/18 09:45 Dose: 650 mg Hydromorphone HCl (Dilaudid) 0.5 mg IVP Q4H PRN PRN Reason: Pain, moderate (4-7) Piperacillin Sod/Tazobactam Sod (Zosyn 3.375 In Ns 100ml) 100 mls @ 200 mls/hr IVPB Q6 [facility] PRN Reason: Protocol Stop: 05/23/18 00:01 Last Admin: 05/15/18 05:59 Dose: 200 mls/hr Sodium Chloride (Sodium Chloride 0.9%) 1,000 mls @ 100 mls/hr IV .Q10H [facility] Last Admin: 05/15/18 08:00 Dose: 100 mls/hr Potassium Phosphate 30 mmole/ (Sodium Chloride) 260 mls @ 43.333 mls/hr IVPB ONCE ONE Stop: 05/15/18 15:14 Last Admin: 05/15/18 10:59 Dose: 43.333 mls/hr Ondansetron HCl (Zofran Inj) 4 mg IVP Q4 PRN PRN Reason: Nausea/Vomiting Physical Exam - Constitutional Appears: No Acute Distress - Head Exam Head Exam: ATRAUMATIC, NORMAL INSPECTION, NORMOCEPHALIC - Eye Exam Eye Exam: EOMI - ENT Exam ENT Exam: Mucous Membranes Moist - Respiratory Exam Respiratory Exam: Clear to Auscultation Bilateral, NORMAL BREATHING PATTERN. absent: Rhonchi, Wheezes, Respiratory Distress - Cardiovascular Exam Cardiovascular Exam: REGULAR RHYTHM, +S1, +S2. absent: Bradycardia, Tachycardia - GI/Abdominal Exam GI & Abdominal Exam: Normal Bowel Sounds, Soft. absent: Diminished Bowel Sounds , Distended, Firm, Guarding - Extremities Exam Additional comments: right foot ulcer of 3rd toe, no erythema, heel ulcer draining left 2nd toe erythema, left heel ulcer no erythema, no drainage - Neurological Exam Neurological exam: Alert, Oriented x3 - Skin Skin Exam: Normal Color, Warm Results - Vital Signs Recent Vital Signs: Last Vital Signs Temp 100.0 F H 05/15/18 09:45 Pulse 91 H 05/15/18 08:49 Resp 20 05/15/18 08:49 BP 140/80 05/15/18 08:49 Pulse Ox 95 05/14/18 18:00 - Labs Result Diagrams: 05/15/18 06:20 05/15/18 06:20 Labs: Laboratory Results - last 24 hr 05/15/18 05/15/18 06:20 06:20 WBC 9.7 RBC 4.46 Hgb 12.7 L Hct 37.6 L MCV 84.3 MCH 28.5 MCHC 33.8 RDW 13.7 Plt Count 125 MPV 10.4 Sodium 137 Potassium 3.5 L Chloride 101 Carbon Dioxide 26 Anion Gap 14 BUN 10 Creatinine 0.9 Est GFR ( Amer) > 60 Est GFR (Non-Af Amer) > 60 Random Glucose 114 H Calcium 7.6 L Phosphorus 1.4 L* Magnesium 1.8 Total Bilirubin 2.4 H AST 30 ALT 40 Alkaline Phosphatase 76 Total Protein 5.7 L Albumin 3.0 Globulin 2.7 Albumin/Globulin Ratio 1.1 Assessment & Plan - Assessment and Plan (Free Text) Assessment: 78 yo female with past medical history of CAD, Diabetes, PAD, peripheral neuropathy, and previous amputations of the left great toe and right second toe , presented with worsening right 3rd toe infection and previous heel ulcers. Wound culture from 05/07/18 grow MRSA. Patient is afebrile without leukocytosis. foot xray did not show evidence of osteomyelitis. Will start patient on IV linezolid. Podiatry is consulted. Consider MRI to rule out oesteomyeltitis and arterial dopplers due to history of PAD. Will order CRP. Consider chlorhexidine soap due to multiple MRSA infections in the past most likely due to colonization. Will follow up MRSA screen of the nares. follow up wound, blood and urine cultures. case reviewed and discussed with attending, Dr. Huynh
--- NOTE | 2018-05-15 20:24 | CP.PCM.PN ---
Subjective - Date & Time of Evaluation Date of Evaluation: 05/15/18 Time of Evaluation: 11:10 - Subjective Subjective: Patient having low grade fevers, abdominal pain is less, no nausea. Objective - Vital Signs/Intake and Output Vital Signs (last 24 hours): Temp Pulse Resp BP Pulse Ox 99.9 F H 91 H 20 140/80 95 05/15/18 08:49 05/15/18 08:49 05/15/18 08:49 05/15/18 08:49 05/14/18 18:00 Intake and Output: 05/15/18 05/15/18 06:59 18:59 Intake Total 1760 Output Total 1000 Balance 760 - Medications Medications: Current Medications Acetaminophen (Tylenol 650 Mg Supp) 650 mg RC Q4H PRN PRN Reason: Fever >100.4 F Acetaminophen (Tylenol 325mg Tab) 650 mg PO Q6H PRN PRN Reason: Fever >100.4 F Hydromorphone HCl (Dilaudid) 0.5 mg IVP Q4H PRN PRN Reason: Pain, moderate (4-7) Piperacillin Sod/Tazobactam Sod (Zosyn 3.375 In Ns 100ml) 100 mls @ 200 mls/hr IVPB Q6 [facility] PRN Reason: Protocol Stop: 05/23/18 00:01 Last Admin: 05/15/18 05:59 Dose: 200 mls/hr Sodium Chloride (Sodium Chloride 0.9%) 1,000 mls @ 100 mls/hr IV .Q10H [facility] Last Admin: 05/14/18 23:01 Dose: 100 mls/hr Potassium Phosphate 30 mmole/ (Sodium Chloride) 260 mls @ 43.333 mls/hr IVPB ONCE ONE Stop: 05/15/18 15:14 Ondansetron HCl (Zofran Inj) 4 mg IVP Q4 PRN PRN Reason: Nausea/Vomiting - Labs Labs: 05/15/18 06:20 05/15/18 06:20 PT 17.0 SECONDS (9.4-12.5) H 05/13/18 14:30 INR 1.48 05/13/18 14:30 - Constitutional Appears: Chronically Ill - Head Exam Head Exam: NORMAL INSPECTION - Respiratory Exam Respiratory Exam: Decreased Breath Sounds - Cardiovascular Exam Cardiovascular Exam: +S1, +S2 - GI/Abdominal Exam GI & Abdominal Exam: Soft. absent: Tenderness Assessment and Plan - Assessment and Plan (Free Text) Plan: Assessment Acute appendicitis with appendiceal abscess S/P cholecystectomy S/P prostatectomy history of depression history of pneumonia Plan continue Zosyn dy 2; blood cx are negative - follow up further plans of Surgery will continue to monitor clinically
[2018-05-16] MEDS: Piperacillin/Tazobact 3.375 gm 100 ML IVPB SCH ×4 (00:12→18:02)
--- NOTE | 2018-05-16 00:26 | PN ---
Copied To: Robert Olivares MD Attending MD: Robert Olivares MD DATE: 05/15/2018 SUBJECTIVE: The patient has no complaints of any chest pain. No shortness of breath. He was confused. He was not sure why he had the oxygen. PHYSICAL EXAMINATION: VITAL SIGNS: Temperature is 100.4, pulse of 81, blood pressure is 159/75, respirations 19. GENERAL: The patient is lying in bed, flat, comfortable. HEENT: No oral lesion. Anicteric sclerae. Moist mucosa. NECK: No JVD, adenopathy, or thyromegaly. CARDIOVASCULAR: S1 and S2, regular. No murmurs, rubs, or gallops. LUNGS: Clear to auscultation bilaterally. No wheeze, rales, or rhonchi. ABDOMEN: Bowel sounds are positive, soft, nontender and nondistended. EXTREMITIES: No cyanosis, clubbing or edema. LABORATORY DATA: White count of 9.7, hemoglobin 12.7. ASSESSMENT: 1. Appendicitis. 2. Depression. 3. Dyslipidemia. 4. Delirium. 5. History of prostate cancer with prostatectomy. 6. History of cholecystectomy. PLAN: The patient has elevated temperature, which is concerning, he has rupture with an abscess that is present. The patient is on liquid diet. He is receiving Abilify, this will be continued. He is on Klonopin. The patient is being seen by Dr. Melendrez. The patient is on IV fluids. The patient is to get laparoscopic appendectomy done today by Dr. Madden. We will continue to follow closely. Blood cultures are pending. Robert Olivares MD
[2018-05-16] MEDS: Sodium Chloride 0.9% 1,000 ML IV SCH (04:30)
[2018-05-16 07:39] LABS: EOS # 0.1 (0.0-0.7); EOS % 0.7 % (1.5-5.0); GRAN # 7.07 (1.4-6.5); GRAN % 86.3 % (50.0-68.0); LYMPH # 0.5 (1.2-3.4); MEAN CELL VOLUME 84.5 fl (80.0-105.0); MEAN CORPUSCULAR HEMOGLOBIN 28.6 pg (25.0-35.0); MEAN CORPUSCULAR HGB CONC 33.9 g/dl (31.0-37.0); MEAN PLATELET VOLUME 9.4 fl (7.0-11.0); MONO # 0.6 (0.1-0.6); RBC 4.19 10^6/uL (3.5-6.1); RED CELL DISTRIBUTION WIDTH 13.9 % (11.5-14.5); WHITE BLOOD COUNT 8.2 10^3/ul (4.5-11.0)
[2018-05-16 08:00] LABS: ALB/GLOB RATIO 1.1 (1.1-1.8); ALT/SGPT 38 U/L (7-56); AST/SGOT 24 U/L (17-59); BLOOD UREA NITROGEN 8 mg/dL (7-21); CALCIUM 7.8 mg/dL (8.4-10.5); GFR AFRICAN-AMERICAN > 60; GFR NON-AFRICAN AMERICAN > 60
--- NOTE | 2018-05-16 10:12 | CP.PCM.PN ---
Subjective - Date & Time of Evaluation Date of Evaluation: 05/16/18 Time of Evaluation: 09:15 - Subjective Subjective: General Surgery Progress note for Dr Madden. Pt seen and examined this morning. Pt reports some mild diarrhea overnight. Pt reports mild right sided abdominal pain, which has been improving. Pt is requesting an advance in his diet. Objective - Vital Signs/Intake and Output Vital Signs (last 24 hours): Temp Pulse Resp BP Pulse Ox 97.8 F 73 20 165/80 H 95 05/16/18 08:30 05/16/18 08:30 05/16/18 08:30 05/16/18 08:30 05/16/18 08:30 - Medications Medications: Current Medications Acetaminophen (Tylenol 650 Mg Supp) 650 mg RC Q4H PRN PRN Reason: Fever >100.4 F Acetaminophen (Tylenol 325mg Tab) 650 mg PO Q6H PRN PRN Reason: Fever >100.4 F Last Admin: 05/15/18 17:23 Dose: 650 mg Aripiprazole (Abilify) 10 mg PO HS [facility] Last Admin: 05/15/18 21:37 Dose: 10 mg Clonazepam (Klonopin) 1 mg PO HS [facility] PRN Reason: Protocol Last Admin: 05/15/18 21:37 Dose: 1 mg Clonazepam (Klonopin) 0.5 mg PO DAILY [facility] PRN Reason: Protocol Last Admin: 05/15/18 14:03 Dose: 0.5 mg Escitalopram Oxalate (Lexapro) 20 mg PO DAILY [facility] Last Admin: 05/15/18 14:03 Dose: 20 mg Hydromorphone HCl (Dilaudid) 0.5 mg IVP Q4H PRN PRN Reason: Pain, moderate (4-7) Piperacillin Sod/Tazobactam Sod (Zosyn 3.375 In Ns 100ml) 100 mls @ 200 mls/hr IVPB Q6 [facility] PRN Reason: Protocol Stop: 05/23/18 00:01 Last Admin: 05/16/18 05:57 Dose: 200 mls/hr Sodium Chloride (Sodium Chloride 0.9%) 1,000 mls @ 100 mls/hr IV .Q10H [facility] Last Admin: 05/16/18 04:30 Dose: 100 mls/hr Ondansetron HCl (Zofran Inj) 4 mg IVP Q4 PRN PRN Reason: Nausea/Vomiting - Labs Labs: 05/16/18 07:00 05/16/18 07:00 PT 17.0 SECONDS (9.4-12.5) H 05/13/18 14:30 INR 1.48 05/13/18 14:30 - Constitutional Appears: No Acute Distress - Head Exam Head Exam: ATRAUMATIC, NORMOCEPHALIC - Eye Exam Eye Exam: EOMI - ENT Exam ENT Exam: Mucous Membranes Moist - Respiratory Exam Respiratory Exam: Clear to Ausculation Bilateral, NORMAL BREATHING PATTERN. absent: Wheezes, Respiratory Distress, Stridor - Cardiovascular Exam Cardiovascular Exam: REGULAR RHYTHM, RRR, +S1, +S2. absent: Bradycardia, Tachycardia, Diastolic murmur, JVD, Murmur - GI/Abdominal Exam GI & Abdominal Exam: Soft, Normal Bowel Sounds. absent: Distended, Guarding, Rigid, Tenderness, Rebound - Back Exam Back Exam: Full ROM, NORMAL INSPECTION. absent: CVA tenderness (L), CVA tenderness (R) - Neurological Exam Neurological Exam: Alert, Awake - Psychiatric Exam Psychiatric exam: Normal Affect, Normal Mood - Skin Skin Exam: Dry, Normal Color, Warm Assessment and Plan - Assessment and Plan (Free Text) Assessment: 73 year old male with perforated appendicitis Plan: -advance diet as tolerated, full liquid -continue IV antibiotics -follow up blood cultures, fever has resolved -surgery not indicated at this time -Repeat CT abd/pelvis tomorrow -wait 6-8 weeks for interval appendectomy -will monitor clinically -Discussed with Dr. Chano Hayes PGY1
--- NOTE | 2018-05-16 11:44 | PN ---
Copied To: Robert Olivares MD Attending MD: Robert Olivares MD DATE: 05/16/2018 SUBJECTIVE: The patient says his abdominal pain is better. He is having bowel movements. He has no complaints of any chest pain. No shortness of breath. PHYSICAL EXAMINATION: VITAL SIGNS: Temperature is 97.8, pulse of 73, blood pressure is 165/80, respirations 20. GENERAL: The patient is lying in bed, flat, comfortable. HEENT: No oral lesion. Anicteric sclerae. Moist mucosa. NECK: No JVD, adenopathy, or thyromegaly. CARDIOVASCULAR: S1 and S2, regular. No murmurs, rubs, or gallops. LUNGS: Clear to auscultation bilaterally. No wheeze, rales, or rhonchi. ABDOMEN: Bowel sounds are positive, soft, nontender and nondistended. EXTREMITIES: No cyanosis, clubbing or edema. LABORATORY DATA: White count of 8.2, hemoglobin 12, potassium is 3.4. ASSESSMENT: 1. Appendicitis with abscess. 2. Depression. 3. Dyslipidemia. 4. Delirium, resolved. 5. History of prostate cancer with prostatectomy. 6. History of cholecystectomy. PLAN: The patient is on Dilaudid for pain, he is going to continue on Klonopin. The patient is on IV potassium yesterday. The patient is on Zofran as needed. He is on a liquid diet. Robert Olivares MD
--- NOTE | 2018-05-16 19:20 | CP.PCM.PN ---
Subjective - Date & Time of Evaluation Date of Evaluation: 05/16/18 Time of Evaluation: 10:00 - Subjective Subjective: Comfortable, abdominal pain only on palpation, no nausea, no fevers. Objective - Vital Signs/Intake and Output Vital Signs (last 24 hours): Temp Pulse Resp BP Pulse Ox 100.4 F H 81 19 159/75 H 95 05/15/18 17:29 05/15/18 17:27 05/15/18 17:27 05/15/18 17:27 05/14/18 18:00 Intake and Output: 05/15/18 05/16/18 18:59 06:59 Intake Total 1220 Output Total 400 Balance 820 - Medications Medications: Current Medications Acetaminophen (Tylenol 650 Mg Supp) 650 mg RC Q4H PRN PRN Reason: Fever >100.4 F Acetaminophen (Tylenol 325mg Tab) 650 mg PO Q6H PRN PRN Reason: Fever >100.4 F Last Admin: 05/15/18 17:23 Dose: 650 mg Aripiprazole (Abilify) 10 mg PO HS [facility] Clonazepam (Klonopin) 1 mg PO HS [facility] PRN Reason: Protocol Clonazepam (Klonopin) 0.5 mg PO DAILY [facility] PRN Reason: Protocol Last Admin: 05/15/18 14:03 Dose: 0.5 mg Escitalopram Oxalate (Lexapro) 20 mg PO DAILY [facility] Last Admin: 05/15/18 14:03 Dose: 20 mg Hydromorphone HCl (Dilaudid) 0.5 mg IVP Q4H PRN PRN Reason: Pain, moderate (4-7) Piperacillin Sod/Tazobactam Sod (Zosyn 3.375 In Ns 100ml) 100 mls @ 200 mls/hr IVPB Q6 [facility] PRN Reason: Protocol Stop: 05/23/18 00:01 Last Admin: 05/15/18 19:12 Dose: 200 mls/hr Sodium Chloride (Sodium Chloride 0.9%) 1,000 mls @ 100 mls/hr IV .Q10H [facility] Last Admin: 05/15/18 08:00 Dose: 100 mls/hr Ondansetron HCl (Zofran Inj) 4 mg IVP Q4 PRN PRN Reason: Nausea/Vomiting - Labs Labs: 05/15/18 06:20 05/15/18 06:20 PT 17.0 SECONDS (9.4-12.5) H 05/13/18 14:30 INR 1.48 05/13/18 14:30 - Constitutional Appears: Chronically Ill - Head Exam Head Exam: NORMAL INSPECTION - ENT Exam ENT Exam: Mucous Membranes Moist - Neck Exam Neck Exam: absent: Meningismus - Respiratory Exam Respiratory Exam: Decreased Breath Sounds - Cardiovascular Exam Cardiovascular Exam: +S1, +S2 - GI/Abdominal Exam GI & Abdominal Exam: Soft. absent: Tenderness Assessment and Plan - Assessment and Plan (Free Text) Plan: Assessment Acute appendicitis with appendiceal abscess S/P cholecystectomy S/P prostatectomy history of depression history of pneumonia Plan continue Zosyn day 3; blood cx are negative - follow up further plans of Surgery - may need repeat CT scan will continue to monitor clinically
[2018-05-17] MEDS: Piperacillin/Tazobact 3.375 gm 100 ML IVPB SCH ×4 (00:58→17:04)
[2018-05-17] MEDS ORDERED: Sodium Chloride 0.9% 1,000 ML IV SCH (06:20)
--- NOTE | 2018-05-17 07:44 | CP.PCM.PN ---
Subjective - Date & Time of Evaluation Date of Evaluation: 05/17/18 Time of Evaluation: 07:00 - Subjective Subjective: Pt seen and examined this morning. Pt reports diarrhea has resolved. Right sided abdominal pain is still present, but has been improving. Objective - Vital Signs/Intake and Output Vital Signs (last 24 hours): Temp Pulse Resp BP Pulse Ox 99.0 F 80 19 191/92 H 90 L 05/16/18 17:28 05/16/18 17:28 05/16/18 17:28 05/17/18 06:30 05/16/18 17:28 - Medications Medications: Current Medications Acetaminophen (Tylenol 650 Mg Supp) 650 mg RC Q4H PRN PRN Reason: Fever >100.4 F Acetaminophen (Tylenol 325mg Tab) 650 mg PO Q6H PRN PRN Reason: Fever >100.4 F Last Admin: 05/15/18 17:23 Dose: 650 mg Aripiprazole (Abilify) 10 mg PO HS [facility] Last Admin: 05/16/18 22:06 Dose: 10 mg Clonazepam (Klonopin) 1 mg PO [facility] PRN Reason: Protocol Last Admin: 05/16/18 22:08 Dose: 1 mg Clonazepam (Klonopin) 0.5 mg PO DAILY [facility] PRN Reason: Protocol Last Admin: 05/16/18 10:43 Dose: 0.5 mg Escitalopram Oxalate (Lexapro) 20 mg PO DAILY [facility] Last Admin: 05/16/18 10:43 Dose: 20 mg Hydromorphone HCl (Dilaudid) 0.5 mg IVP Q4H PRN PRN Reason: Pain, moderate (4-7) Piperacillin Sod/Tazobactam Sod (Zosyn 3.375 In Ns 100ml) 100 mls @ 200 mls/hr IVPB Q6 [facility] PRN Reason: Protocol Stop: 05/23/18 00:01 Last Admin: 05/17/18 05:54 Dose: 200 mls/hr Sodium Chloride (Sodium Chloride 0.9%) 1,000 mls @ 50 mls/hr IV .Q20H [facility] Last Admin: 05/17/18 06:50 Dose: Not Given Ondansetron HCl (Zofran Inj) 4 mg IVP Q4 PRN PRN Reason: Nausea/Vomiting Potassium Phos/Sodium Phos (Neutra-Phos) 2 pkt PO BID [facility] Stop: 05/20/18 10:01 - Labs Labs: 05/16/18 07:00 05/16/18 07:00 PT 17.0 SECONDS (9.4-12.5) H 05/13/18 14:30 INR 1.48 05/13/18 14:30 - Constitutional Appears: Well, No Acute Distress - Head Exam Head Exam: ATRAUMATIC, NORMOCEPHALIC - ENT Exam ENT Exam: Mucous Membranes Moist - Neck Exam Neck Exam: Full ROM - Respiratory Exam Respiratory Exam: NORMAL BREATHING PATTERN. absent: Accessory Muscle Use, Respiratory Distress, Stridor - Cardiovascular Exam Cardiovascular Exam: +S1, +S2. absent: JVD - GI/Abdominal Exam GI & Abdominal Exam: Soft, Tenderness - Extremities Exam Extremities Exam: Full ROM - Neurological Exam Neurological Exam: Alert, Awake Assessment and Plan - Assessment and Plan (Free Text) Assessment: 73 year old male with perforated appendicitis Plan: -advance diet as tolerated, full liquid -continue IV antibiotics -surgery not indicated at this time -F/u CT abd/pelvis PO/IV contrast -wait 6-8 weeks for interval appendectomy -will monitor clinically -Discussed with Dr. Chano Hayes PGY1
[2018-05-17] MEDS ORDERED: Barium Sulfate Susp 2.1% w/v, 2.0% w/w 450 mL Bottle PO ONE (08:05)
--- NOTE | 2018-05-17 08:23 | PN ---
Copied To: Robert Olivares MD Attending MD: Robert Olivares MD DATE: 05/17/2018 SUBJECTIVE: The patient has no complaints of any chest pain. No shortness of breath. No headaches. He states his pain is controlled. PHYSICAL EXAMINATION: VITAL SIGNS: Temperature 99, pulse of 80, blood pressure 166/86, respirations 19, O2 saturation . GENERAL: The patient is lying in bed, flat, comfortable. HEENT: No oral lesion. Anicteric sclerae. Moist mucosa. NECK: No JVD, adenopathy, or thyromegaly. CARDIOVASCULAR: S1 and S2, regular. No murmurs, rubs, or gallops. LUNGS: Clear to auscultation bilaterally. No wheeze, rales, or rhonchi. ABDOMEN: Bowel sounds are positive. Soft, nontender and nondistended. EXTREMITIES: No cyanosis, clubbing or edema. ASSESSMENT: 1. Acute appendicitis with abscess formation. 2. Depression. 3. Dyslipidemia. 4. History of prostate cancer with prostatectomy. 5. History of cholecystectomy. 6. Hypophosphatemia. PLAN: The patient's blood pressure is elevated. I will decrease his IV fluid. He is on a clear liquid diet. I gave him one dose of clonidine. His blood pressure have been controlled; in the last 24 hours, it has increased. He is receiving Zosyn for antibiotics. I did review note from Dr. Huynh from the Infectious Disease. The patient will most likely need to repeat CAT scan to evaluate the abscess. He does have abdominal pain but that has improved and it is under control. He is currently receiving Dilaudid for pain. He is on Klonopin for his anxiety. The patient is receiving Tylenol as needed. He had multiple blood cultures that have been negative. He has a low phosphorous. I will replace his phosphorus. Robert Olivares MD
[2018-05-17] MEDS: HYDROmorphone 0.5 mg/0.5 ml ISec IVP PRN ×2 (09:20→17:03)
[2018-05-17] MEDS: Potassium & Sodium Phosphate PO SCH ×2 (09:21→17:05)
--- NOTE | 2018-05-17 11:50 | CP.PCM.PN ---
Subjective - Date & Time of Evaluation Date of Evaluation: 05/17/18 Time of Evaluation: 10:25 - Subjective Subjective: Patient is resting comfortably in bed, no fevers, less abdominal pain, for CT scan today. Objective - Vital Signs/Intake and Output Vital Signs (last 24 hours): Temp Pulse Resp BP Pulse Ox 99.0 F 80 19 166/86 H 90 L 05/16/18 17:28 05/16/18 17:28 05/16/18 17:28 05/16/18 17:28 05/16/18 17:28 Intake and Output: 05/16/18 05/17/18 18:59 06:59 Intake Total 1340 Balance 1340 - Medications Medications: Current Medications Acetaminophen (Tylenol 650 Mg Supp) 650 mg RC Q4H PRN PRN Reason: Fever >100.4 F Acetaminophen (Tylenol 325mg Tab) 650 mg PO Q6H PRN PRN Reason: Fever >100.4 F Last Admin: 05/15/18 17:23 Dose: 650 mg Aripiprazole (Abilify) 10 mg PO HS [facility] Last Admin: 05/15/18 21:37 Dose: 10 mg Clonazepam (Klonopin) 1 mg PO HS [facility] PRN Reason: Protocol Last Admin: 05/15/18 21:37 Dose: 1 mg Clonazepam (Klonopin) 0.5 mg PO DAILY [facility] PRN Reason: Protocol Last Admin: 05/16/18 10:43 Dose: 0.5 mg Escitalopram Oxalate (Lexapro) 20 mg PO DAILY [facility] Last Admin: 05/16/18 10:43 Dose: 20 mg Hydromorphone HCl (Dilaudid) 0.5 mg IVP Q4H PRN PRN Reason: Pain, moderate (4-7) Piperacillin Sod/Tazobactam Sod (Zosyn 3.375 In Ns 100ml) 100 mls @ 200 mls/hr IVPB Q6 [facility] PRN Reason: Protocol Stop: 05/23/18 00:01 Last Admin: 05/16/18 18:02 Dose: 200 mls/hr Sodium Chloride (Sodium Chloride 0.9%) 1,000 mls @ 100 mls/hr IV .Q10H [facility] Last Admin: 05/16/18 04:30 Dose: 100 mls/hr Ondansetron HCl (Zofran Inj) 4 mg IVP Q4 PRN PRN Reason: Nausea/Vomiting - Labs Labs: 05/16/18 07:00 05/16/18 07:00 PT 17.0 SECONDS (9.4-12.5) H 05/13/18 14:30 INR 1.48 05/13/18 14:30 - Constitutional Appears: Chronically Ill - Head Exam Head Exam: NORMAL INSPECTION - ENT Exam ENT Exam: Mucous Membranes Moist - Respiratory Exam Respiratory Exam: Decreased Breath Sounds - Cardiovascular Exam Cardiovascular Exam: +S1, +S2 - GI/Abdominal Exam GI & Abdominal Exam: Soft. absent: Tenderness Assessment and Plan - Assessment and Plan (Free Text) Plan: Assessment Acute appendicitis with appendiceal abscess S/P cholecystectomy S/P prostatectomy history of depression history of pneumonia Plan continue Zosyn day 4; blood cx are negative - follow up further plans of Surgery - for repeat CT scan today and will check results will continue to monitor clinically
--- NOTE | 2018-05-17 12:52 | CT ---
Date of service: 05/17/2018 PROCEDURE: CT Abdomen and Pelvis with contrast HISTORY: evaluate for interval change COMPARISON: 05/13/2018 TECHNIQUE: Contrast dose: 150 cc of Omni 350 Radiation dose: Total exam DLP = 949 mGy-cm. This CT exam was performed using one or more of the following dose reduction techniques: Automated exposure control, adjustment of the mA and/or kV according to patient size, and/or use of iterative reconstruction technique. FINDINGS: LOWER THORAX: There is dense consolidation at the left lung base. Small bilateral pleural effusions are seen LIVER: Unremarkable. No gross lesion or ductal dilatation. GALLBLADDER AND BILE DUCTS: Unremarkable. PANCREAS: Unremarkable. No gross lesion or ductal dilatation. SPLEEN: Unremarkable. ADRENALS: Unremarkable. No mass. KIDNEYS AND URETERS: Unremarkable. No hydronephrosis. No solid mass. VASCULATURE: Unremarkable. No aortic aneurysm. BOWEL: Unremarkable. No obstruction. No gross mural thickening. APPENDIX: There is decreased mural thickening of the cecum. There is a slight increase in size of the appendiceal abscess in the right lower quadrant adjacent to the chest wall. This measures 18 mm in thickness and approximately 90 mm in length. Findings are best seen on image 134 series 3. PERITONEUM: There is a new fluid collection presumably a separate abscess in the pelvis superior to the bladder measuring 4.6 cm in diameter. LYMPH NODES: Unremarkable. No enlarged lymph nodes. BLADDER: Unremarkable. REPRODUCTIVE: Unremarkable. BONES: No acute fracture. OTHER FINDINGS: None. IMPRESSION: There is decreased mural thickening of the cecum. There is a slight increase in size of the appendiceal abscess in the right lower quadrant adjacent to the chest wall. This measures 18 mm in thickness and approximately 90 mm in length. There is a new fluid collection presumably a separate abscess in the pelvis superior to the bladder measuring 4.6 cm in diameter.
[2018-05-17] MEDS ORDERED: Midazolam 2 MG/2 ML VIAL ONE (14:26)
[2018-05-17] MEDS ORDERED: Oxycodone/Acetaminophen 5/325 mg Tab PO PRN (15:18)
--- NOTE | 2018-05-17 15:46 | CT ---
PROCEDURE: CT-guided pelvic abscess drainage. HISTORY: Acute appendicitis. 4 cm pelvic abscess. Needs drainage PHYSICIAN(S): Darius Acharya MD. TECHNIQUE: The relative risks and indications for the procedure were explained to the patient and informed consent obtained. The patient was placed in a prone position on the CT scanner and preliminary images through the pelvis performed. This revealed a well-circumscribed 4 cm fluid collection adjacent to the rectosigmoid colon. A right trans gluteal approach was selected and the area prepped/draped in the usual sterile fashion. Conscious sedation and monitoring were provided throughout the procedure by nurse. An 18-gauge needle was advanced into the collection and 5 cc of clear, straw-colored fluid aspirated. A specimen was sent to microbiology. A 0.035 J-wire was coiled within the fluid collection. Sequential dilatation was performed with subsequent placement of a 12 Nepali pigtail drain. Approximately 20 cc of clear then bloody fluid was aspirated. The cavity was lavaged with normal saline. The drain was sutured to the skin and placed to gravity drainage. Completion images were performed. The patient tolerated the procedure well. IMPRESSION: 1. CT-guided pelvic abscess drainage as described above.
[2018-05-17] MEDS ORDERED: Midazolam 2 MG/2 ML VIAL IVP ONE (15:56)
[2018-05-17] MEDS ORDERED: Potassium Chloride 20 mEq ER Tab PO ONE (17:15)
[2018-05-18] MEDS: Piperacillin/Tazobact 3.375 gm 100 ML IVPB SCH ×5 (00:59→23:15)
--- NOTE | 2018-05-18 07:39 | CP.PCM.PN ---
Subjective - Date & Time of Evaluation Date of Evaluation: 05/18/18 Time of Evaluation: 07:00 - Subjective Subjective: Pt seen and examined this morning. Pt denies abdominal pain, nausea, vomiting, fevers, chills, night sweats, chest pain or SOB. Objective - Vital Signs/Intake and Output Vital Signs (last 24 hours): Temp Pulse Resp BP Pulse Ox 99.3 F 84 18 179/92 H 95 05/18/18 01:48 05/18/18 02:18 05/18/18 02:18 05/18/18 02:18 05/18/18 02:18 Intake and Output: 05/18/18 05/18/18 06:59 18:59 Intake Total 180 Output Total 300 Balance -120 - Medications Medications: Current Medications Acetaminophen (Tylenol 650 Mg Supp) 650 mg RC Q4H PRN PRN Reason: Fever >100.4 F Acetaminophen (Tylenol 325mg Tab) 650 mg PO Q6H PRN PRN Reason: Fever >100.4 F Last Admin: 05/15/18 17:23 Dose: 650 mg Amlodipine Besylate (Norvasc) 10 mg PO DAILY [facility] Aripiprazole (Abilify) 10 mg PO HS [facility] Last Admin: 05/17/18 22:32 Dose: 10 mg Clonazepam (Klonopin) 1 mg PO HS [facility] PRN Reason: Protocol Last Admin: 05/17/18 22:31 Dose: 1 mg Clonazepam (Klonopin) 0.5 mg PO DAILY [facility] PRN Reason: Protocol Last Admin: 05/17/18 09:21 Dose: 0.5 mg Escitalopram Oxalate (Lexapro) 20 mg PO DAILY [facility] Last Admin: 05/17/18 09:21 Dose: 20 mg Hydrochlorothiazide (Microzide) 12.5 mg PO DAILY [facility] Hydromorphone HCl (Dilaudid) 0.5 mg IVP Q4H PRN PRN Reason: Pain, moderate (4-7) Last Admin: 05/17/18 17:03 Dose: 0.5 mg Piperacillin Sod/Tazobactam Sod (Zosyn 3.375 In Ns 100ml) 100 mls @ 200 mls/hr IVPB Q6 [facility] PRN Reason: Protocol Stop: 05/23/18 00:01 Last Admin: 05/18/18 06:18 Dose: 200 mls/hr Ondansetron HCl (Zofran Inj) 4 mg IVP Q4 PRN PRN Reason: Nausea/Vomiting Oxycodone/Acetaminophen (Percocet 5/325 Mg Tab) 1 tab PO Q4H PRN PRN Reason: Pain, moderate (4-7) Stop: 05/20/18 15:19 Potassium Phos/Sodium Phos (Neutra-Phos) 2 pkt PO BID [facility] Stop: 05/20/18 10:01 Last Admin: 05/17/18 17:05 Dose: 2 pkt - Labs Labs: 05/16/18 07:00 05/16/18 07:00 PT 17.0 SECONDS (9.4-12.5) H 05/13/18 14:30 INR 1.48 05/13/18 14:30 - Constitutional Appears: No Acute Distress - Head Exam Head Exam: ATRAUMATIC - Eye Exam Eye Exam: EOMI - ENT Exam ENT Exam: Mucous Membranes Moist - Neck Exam Neck Exam: Full ROM - Respiratory Exam Respiratory Exam: Clear to Ausculation Bilateral, NORMAL BREATHING PATTERN. absent: Accessory Muscle Use, Wheezes, Respiratory Distress, Stridor - Cardiovascular Exam Cardiovascular Exam: REGULAR RHYTHM, RRR, +S1, +S2. absent: Diastolic murmur, Irregular Rhythm, JVD - GI/Abdominal Exam GI & Abdominal Exam: Soft. absent: Distended, Guarding, Rigid, Tenderness - Extremities Exam Extremities Exam: Full ROM. absent: Calf Tenderness, Pedal Edema - Back Exam Back Exam: Full ROM. absent: CVA tenderness (L), CVA tenderness (R) - Neurological Exam Neurological Exam: Alert, Awake - Psychiatric Exam Psychiatric exam: Normal Affect, Normal Mood - Skin Skin Exam: Dry, Normal Color, Warm Assessment and Plan - Assessment and Plan (Free Text) Assessment: Pt seen and examined this morning. Pt reports diarrhea has resolved. Right sided abdominal pain is still present, but has been improving. Plan: -advance diet as tolerated -continue IV antibiotics -surgery not indicated at this time -wait 6-8 weeks for interval appendectomy -will monitor clinically -continue antihypertensives -monitor BP -Discussed with Dr. Chano Hayes PGY1
[2018-05-18 08:46] LABS: BASO # 0.02 K/mm3 (0.0-2.0); BASO % 0.3 % (0.0-3.0); EOS # 0.2 (0.0-0.7); EOS % 2.2 % (1.5-5.0); GRAN # 6.12 (1.4-6.5); HEMOGLOBIN 12.2 g/dL (14.0-18.0); LYMPH # 0.6 (1.2-3.4); LYMPH % 7.9 % (22.0-35.0); MEAN CELL VOLUME 84.4 fl (80.0-105.0); MEAN CORPUSCULAR HEMOGLOBIN 28.4 pg (25.0-35.0); MEAN CORPUSCULAR HGB CONC 33.7 g/dl (31.0-37.0); MEAN PLATELET VOLUME 8.9 fl (7.0-11.0); MONO # 0.7 (0.1-0.6); MONO % 9.6 % (1.0-6.0); RBC 4.29 10^6/uL (3.5-6.1); RED CELL DISTRIBUTION WIDTH 13.9 % (11.5-14.5); WHITE BLOOD COUNT 7.6 10^3/ul (4.5-11.0)
[2018-05-18] MEDS: Potassium & Sodium Phosphate PO SCH ×2 (09:25→17:33)
--- NOTE | 2018-05-18 10:58 | PN ---
Copied To: Robert Olivarse MD Attending MD: Robert Olivares MD DATE: 05/18/2018 SUBJECTIVE: The patient has no complaints of any chest pain. No shortness of breath. No headaches or dizziness. PHYSICAL EXAMINATION: VITAL SIGNS: Temperature is 99.3, pulse of 84, blood pressure 179/92, respirations 18. GENERAL: The patient is lying in bed, flat, comfortable. HEENT: No oral lesion. Anicteric sclerae. Moist mucosa. NECK: No JVD, adenopathy, or thyromegaly. CARDIOVASCULAR: S1 and S2, regular. No murmurs, rubs, or gallops. LUNGS: Clear to auscultation bilaterally. No wheeze, rales, or rhonchi. ABDOMEN: Bowel sounds are positive, soft, nontender and nondistended. EXTREMITIES: no cyanosis, clubbing or edema. LABORATORY DATA: White count of 8.2, hemoglobin 12, creatinine is 0.9. Repeat CT of the abdomen and pelvis done shows there is decreased mural thickening of the cecum. There is slight increase in size of the appendiceal abscess in the right lower quadrant measuring 18 mm in thickness. There is a new fluid collection, presumably a separate abscess in the pelvis superior to the bladder measuring 4.6 cm. ASSESSMENT: 1. Appendiceal abscess, 1 cm x 9 cm. 2. New fluid collection superior to the bladder measuring 4.6 cm. 3. Hypertension, uncontrolled. 4. Depression. 5. Dyslipidemia. 6. History of prostate cancer with prostatectomy. 7. Hypophosphatemia. 8. History of cholecystectomy. PLAN: The patient had drainage of the appendiceal abscess by CT guidance by IR. The patient has hypertension, is not controlled, most likely secondary to the underlying medical condition the patient has. I will place him on blood pressure medications at this point. He is on antibiotics. He has had blood cultures that are negative. We will repeat his blood work as well, his phosphate as well, most likely secondary to decreased intake as he stays on a liquid diet. Robert Olivares MD [facility] # [id number]
--- NOTE | 2018-05-18 12:32 | CP.PCM.PN ---
Subjective - Date & Time of Evaluation Date of Evaluation: 05/28/18 Time of Evaluation: 06:00 - Subjective Subjective: This patient Objective - Vital Signs/Intake and Output Vital Signs (last 24 hours): Temp Pulse Resp BP Pulse Ox 99 F 90 20 170/91 H 91 L 05/18/18 08:50 05/18/18 08:50 05/18/18 08:50 05/18/18 09:26 05/18/18 08:50 Intake and Output: 05/18/18 05/18/18 06:59 18:59 Intake Total 180 Output Total 300 Balance -120 - Medications Medications: Current Medications Acetaminophen (Tylenol 650 Mg Supp) 650 mg RC Q4H PRN PRN Reason: Fever >100.4 F Acetaminophen (Tylenol 325mg Tab) 650 mg PO Q6H PRN PRN Reason: Fever >100.4 F Last Admin: 05/15/18 17:23 Dose: 650 mg Amlodipine Besylate (Norvasc) 10 mg PO DAILY [facility] Last Admin: 05/18/18 09:26 Dose: 10 mg Aripiprazole (Abilify) 10 mg PO HS [facility] Last Admin: 05/17/18 22:32 Dose: 10 mg Clonazepam (Klonopin) 1 mg PO HS [facility] PRN Reason: Protocol Last Admin: 05/17/18 22:31 Dose: 1 mg Clonazepam (Klonopin) 0.5 mg PO DAILY [facility] PRN Reason: Protocol Last Admin: 05/18/18 09:24 Dose: 0.5 mg Escitalopram Oxalate (Lexapro) 20 mg PO DAILY [facility] Last Admin: 05/18/18 09:25 Dose: 20 mg Hydrochlorothiazide (Microzide) 12.5 mg PO DAILY [facility] Last Admin: 05/18/18 09:25 Dose: 12.5 mg Hydromorphone HCl (Dilaudid) 0.5 mg IVP Q4H PRN PRN Reason: Pain, moderate (4-7) Last Admin: 05/17/18 17:03 Dose: 0.5 mg Piperacillin Sod/Tazobactam Sod (Zosyn 3.375 In Ns 100ml) 100 mls @ 200 mls/hr IVPB Q6 [facility] PRN Reason: Protocol Stop: 05/23/18 00:01 Last Admin: 05/18/18 06:18 Dose: 200 mls/hr Ondansetron HCl (Zofran Inj) 4 mg IVP Q4 PRN PRN Reason: Nausea/Vomiting Oxycodone/Acetaminophen (Percocet 5/325 Mg Tab) 1 tab PO Q4H PRN PRN Reason: Pain, moderate (4-7) Stop: 05/20/18 15:19 Potassium Phos/Sodium Phos (Neutra-Phos) 2 pkt PO BID [facility] Stop: 05/20/18 10:01 Last Admin: 05/18/18 09:25 Dose: 2 pkt - Labs Labs: 05/18/18 08:30 05/16/18 07:00 PT 17.0 SECONDS (9.4-12.5) H 05/13/18 14:30 INR 1.48 05/13/18 14:30
--- NOTE | 2018-05-18 17:51 | CP.PCM.PN ---
Subjective - Date & Time of Evaluation Date of Evaluation: 05/18/18 Time of Evaluation: 10:35 - Subjective Subjective: Patient has drainage of the abscess yesterday, less abdominal pain, no nausea, no fevers, no diarrhea. Objective - Vital Signs/Intake and Output Vital Signs (last 24 hours): Temp Pulse Resp BP Pulse Ox 97.6 F 78 22 163/80 H 92 L 05/17/18 09:05 05/17/18 09:05 05/17/18 09:05 05/17/18 09:05 05/17/18 09:05 - Medications Medications: Current Medications Acetaminophen (Tylenol 650 Mg Supp) 650 mg RC Q4H PRN PRN Reason: Fever >100.4 F Acetaminophen (Tylenol 325mg Tab) 650 mg PO Q6H PRN PRN Reason: Fever >100.4 F Last Admin: 05/15/18 17:23 Dose: 650 mg Aripiprazole (Abilify) 10 mg PO HS [facility] Last Admin: 05/16/18 22:06 Dose: 10 mg Clonazepam (Klonopin) [address] [facility] PRN Reason: Protocol Last Admin: 05/16/18 22:08 Dose: 1 mg Clonazepam (Klonopin) 0.5 mg PO DAILY [facility] PRN Reason: Protocol Last Admin: 05/17/18 09:21 Dose: 0.5 mg Escitalopram Oxalate (Lexapro) 20 mg PO DAILY [facility] Last Admin: 05/17/18 09:21 Dose: 20 mg Hydromorphone HCl (Dilaudid) 0.5 mg IVP Q4H PRN PRN Reason: Pain, moderate (4-7) Last Admin: 05/17/18 09:20 Dose: 0.5 mg Piperacillin Sod/Tazobactam Sod (Zosyn 3.375 In Ns 100ml) 100 mls @ 200 mls/hr IVPB Q6 [facility] PRN Reason: Protocol Stop: 05/23/18 00:01 Last Admin: 05/17/18 05:54 Dose: 200 mls/hr Sodium Chloride (Sodium Chloride 0.9%) 1,000 mls @ 50 mls/hr IV .Q20H [facility] Last Admin: 05/17/18 06:50 Dose: Not Given Ondansetron HCl (Zofran Inj) 4 mg IVP Q4 PRN PRN Reason: Nausea/Vomiting Potassium Phos/Sodium Phos (Neutra-Phos) 2 pkt PO BID [facility] Stop: 05/20/18 10:01 Last Admin: 05/17/18 09:21 Dose: 2 pkt - Labs Labs: 05/16/18 07:00 05/16/18 07:00 PT 17.0 SECONDS (9.4-12.5) H 05/13/18 14:30 INR 1.48 05/13/18 14:30 - Constitutional Appears: Non-toxic, No Acute Distress - Head Exam Head Exam: NORMAL INSPECTION - ENT Exam ENT Exam: Mucous Membranes Moist - Neck Exam Neck Exam: absent: Meningismus - Respiratory Exam Respiratory Exam: Decreased Breath Sounds - Cardiovascular Exam Cardiovascular Exam: +S1, +S2 - GI/Abdominal Exam GI & Abdominal Exam: Soft. absent: Tenderness Assessment and Plan - Assessment and Plan (Free Text) Plan: Assessment Acute appendicitis with appendiceal abscess S/P IR-guided drainage yesterday S/P cholecystectomy S/P prostatectomy history of depression history of pneumonia Plan continue Zosyn day 5; blood cx are negative - follow up results of the cultures of the abscess discussed with Dr. Madden - if cultures are negative from the abscess, may change to PO Augmentin when ready for discharge will continue to monitor clinically
[2018-05-19] MEDS: Piperacillin/Tazobact 3.375 gm 100 ML IVPB SCH ×4 (05:38→23:51)
[2018-05-19 07:18] LABS: HEMOGLOBIN 12.1 g/dL (14.0-18.0); MEAN CELL VOLUME 84.3 fl (80.0-105.0); MEAN CORPUSCULAR HEMOGLOBIN 28.3 pg (25.0-35.0); MEAN CORPUSCULAR HGB CONC 33.5 g/dl (31.0-37.0); MEAN PLATELET VOLUME 8.8 fl (7.0-11.0); RBC 4.28 10^6/uL (3.5-6.1); RED CELL DISTRIBUTION WIDTH 13.7 % (11.5-14.5); WHITE BLOOD COUNT 6.8 10^3/ul (4.5-11.0)
--- NOTE | 2018-05-19 07:26 | CP.PCM.PN ---
Subjective - Date & Time of Evaluation Date of Evaluation: 05/19/18 Time of Evaluation: 07:27 - Subjective Subjective: General Surgery Note for Dr. Madden Patient seen and examined at bedside. No acute event overnight. Patient denies abdominal pain, nausea/vomiting, and fevers/chills. Patient admits to diarrhea still. He is tolerating full liquid diet, will advance to soft. Patient eager to eat "real food." No other complaints at this time. Objective - Vital Signs/Intake and Output Vital Signs (last 24 hours): Temp Pulse Resp BP Pulse Ox 98.2 F 72 20 166/81 H 93 L 05/19/18 00:00 05/19/18 00:00 05/19/18 00:00 05/19/18 00:00 05/19/18 00:00 Intake and Output: 05/19/18 05/19/18 06:59 18:59 Intake Total 200 Output Total 2250 Balance -0 - Medications Medications: Current Medications Acetaminophen (Tylenol 650 Mg Supp) 650 mg RC Q4H PRN PRN Reason: Fever >100.4 F Acetaminophen (Tylenol 325mg Tab) 650 mg PO Q6H PRN PRN Reason: Fever >100.4 F Last Admin: 05/15/18 17:23 Dose: 650 mg Amlodipine Besylate (Norvasc) 10 mg PO DAILY [facility] Last Admin: 05/18/18 09:26 Dose: 10 mg Aripiprazole (Abilify) 10 mg PO HS [facility] Last Admin: 05/18/18 21:23 Dose: 10 mg Clonazepam (Klonopin) 1 mg PO HS [facility] PRN Reason: Protocol Last Admin: 05/18/18 21:28 Dose: 1 mg Clonazepam (Klonopin) 0.5 mg PO DAILY [facility] PRN Reason: Protocol Last Admin: 05/18/18 09:24 Dose: 0.5 mg Escitalopram Oxalate (Lexapro) 20 mg PO DAILY [facility] Last Admin: 05/18/18 09:25 Dose: 20 mg Hydrochlorothiazide (Microzide) 12.5 mg PO DAILY [facility] Last Admin: 05/18/18 09:25 Dose: 12.5 mg Hydromorphone HCl (Dilaudid) 0.5 mg IVP Q4H PRN PRN Reason: Pain, moderate (4-7) Last Admin: 05/17/18 17:03 Dose: 0.5 mg Piperacillin Sod/Tazobactam Sod (Zosyn 3.375 In Ns 100ml) 100 mls @ 200 mls/hr IVPB Q6 [facility] PRN Reason: Protocol Stop: 05/23/18 00:01 Last Admin: 05/19/18 05:38 Dose: 200 mls/hr Ondansetron HCl (Zofran Inj) 4 mg IVP Q4 PRN PRN Reason: Nausea/Vomiting Oxycodone/Acetaminophen (Percocet 5/325 Mg Tab) 1 tab PO Q4H PRN PRN Reason: Pain, moderate (4-7) Stop: 05/20/18 15:19 Potassium Phos/Sodium Phos (Neutra-Phos) 2 pkt PO BID [facility] Stop: 05/20/18 10:01 Last Admin: 05/18/18 17:33 Dose: 2 pkt - Labs Labs: 05/19/18 06:30 05/16/18 07:00 PT 17.0 SECONDS (9.4-12.5) H 05/13/18 14:30 INR 1.48 05/13/18 14:30 - Additional Findings Additional findings: - Constitutional Appears: No Acute Distress - Head Exam Head Exam: ATRAUMATIC - Eye Exam Eye Exam: EOMI - ENT Exam ENT Exam: Mucous Membranes Moist - Neck Exam Neck Exam: Full ROM - Respiratory Exam Respiratory Exam: NORMAL BREATHING PATTERN. - Cardiovascular Exam Cardiovascular Exam: REGULAR RHYTHM, RRR, +S1, +S2. absent: Diastolic murmur, Irregular Rhythm, JVD - GI/Abdominal Exam GI & Abdominal Exam: Soft. absent: Distended, Guarding, Rigid, Tenderness - Extremities Exam Extremities Exam: Full ROM. absent: Calf Tenderness, Pedal Edema - Back Exam Back Exam: Full ROM. absent: CVA tenderness (L), CVA tenderness (R) - Neurological Exam Neurological Exam: Alert, Awake - Psychiatric Exam Psychiatric exam: Normal Affect, Normal Mood - Skin Skin Exam: Dry, Normal Color, Warm IR drain in place with minimal serosanguinous output Assessment and Plan - Assessment and Plan (Free Text) Assessment: 73M presents with perforated appendicitis, s/p IR drainage POD#2 Plan: -HHD soft -continue IV antibiotics -continue antihypertensives -Pain control -surgery not indicated at this time -Patient will be sent home on oral antibiotics when discharged -wait 6-8 weeks for interval appendectomy -will monitor clinically -Further recommendations as per Dr. Chano Hanna PGY1
[2018-05-19 07:44] LABS: ALB/GLOB RATIO 1.1 (1.1-1.8); ALBUMIN 3.1 g/dL (3.0-4.8); ALT/SGPT 43 U/L (7-56); AST/SGOT 42 U/L (17-59); CALCIUM 8.3 mg/dL (8.4-10.5); GFR AFRICAN-AMERICAN > 60; GFR NON-AFRICAN AMERICAN > 60
[2018-05-19 07:47] LABS: BLOOD UREA NITROGEN 4 mg/dL (7-21)
[2018-05-19] MEDS ORDERED: Potassium Chloride 40 mEq/30 ml LIQ UD PO ONE (08:22)
--- NOTE | 2018-05-19 08:51 | CARD ---
APPROVED REPORT Date of service: 05/19/2018 EKG Measurement Heart [id number] <Conclusion> Normal sinus rhythm Normal ECG
[2018-05-19] MEDS: Potassium & Sodium Phosphate PO SCH ×2 (09:20→17:15)
--- NOTE | 2018-05-19 16:21 | CP.PCM.PN ---
Subjective - Date & Time of Evaluation Date of Evaluation: 05/19/18 Time of Evaluation: 11:20 - Subjective Subjective: Improved abdominal pain, no fevers, wants to eat solid foods. Objective - Vital Signs/Intake and Output Vital Signs (last 24 hours): Temp Pulse Resp BP Pulse Ox 99 F 90 20 170/91 H 91 L 05/18/18 08:50 05/18/18 08:50 05/18/18 08:50 05/18/18 09:26 05/18/18 08:50 Intake and Output: 05/18/18 05/18/18 06:59 18:59 Intake Total 180 Output Total 300 Balance -120 - Medications Medications: Current Medications Acetaminophen (Tylenol 650 Mg Supp) 650 mg RC Q4H PRN PRN Reason: Fever >100.4 F Acetaminophen (Tylenol 325mg Tab) 650 mg PO Q6H PRN PRN Reason: Fever >100.4 F Last Admin: 05/15/18 17:23 Dose: 650 mg Amlodipine Besylate (Norvasc) 10 mg PO DAILY [facility] Last Admin: 05/18/18 09:26 Dose: 10 mg Aripiprazole (Abilify) 10 mg PO HS [facility] Last Admin: 05/17/18 22:32 Dose: 10 mg Clonazepam (Klonopin) 1 mg PO HS [facility] PRN Reason: Protocol Last Admin: 05/17/18 22:31 Dose: 1 mg Clonazepam (Klonopin) 0.5 mg PO DAILY [facility] PRN Reason: Protocol Last Admin: 05/18/18 09:24 Dose: 0.5 mg Escitalopram Oxalate (Lexapro) 20 mg PO DAILY [facility] Last Admin: 05/18/18 09:25 Dose: 20 mg Hydrochlorothiazide (Microzide) 12.5 mg PO DAILY [facility] Last Admin: 05/18/18 09:25 Dose: 12.5 mg Hydromorphone HCl (Dilaudid) 0.5 mg IVP Q4H PRN PRN Reason: Pain, moderate (4-7) Last Admin: 05/17/18 17:03 Dose: 0.5 mg Piperacillin Sod/Tazobactam Sod (Zosyn 3.375 In Ns 100ml) 100 mls @ 200 mls/hr IVPB Q6 [facility] PRN Reason: Protocol Stop: 08/15/18 00:01 Last Admin: 05/18/18 17:34 Dose: 200 mls/hr Ondansetron HCl (Zofran Inj) 4 mg IVP Q4 PRN PRN Reason: Nausea/Vomiting Oxycodone/Acetaminophen (Percocet 5/325 Mg Tab) 1 tab PO Q4H PRN PRN Reason: Pain, moderate (4-7) Stop: 05/20/18 15:19 Potassium Phos/Sodium Phos (Neutra-Phos) 2 pkt PO BID [facility] Stop: 05/20/18 10:01 Last Admin: 05/18/18 17:33 Dose: 2 pkt - Labs Labs: 05/18/18 08:30 05/16/18 07:00 PT 17.0 SECONDS (9.4-12.5) H 05/13/18 14:30 INR 1.48 05/13/18 14:30 - Constitutional Appears: Chronically Ill - Head Exam Head Exam: NORMAL INSPECTION - ENT Exam ENT Exam: Mucous Membranes Moist - Neck Exam Neck Exam: absent: Meningismus - Respiratory Exam Respiratory Exam: Decreased Breath Sounds - Cardiovascular Exam Cardiovascular Exam: +S1, +S2 - GI/Abdominal Exam GI & Abdominal Exam: Soft. absent: Tenderness Assessment and Plan - Assessment and Plan (Free Text) Plan: Assessment Acute appendicitis with appendiceal abscess S/P IR-guided drainage POD #2 S/P cholecystectomy S/P prostatectomy history of depression history of pneumonia Plan continue Zosyn day 6; blood cx are negative - follow up results of the cultures of the abscess discussed with Dr. Madden - if cultures are negative from the abscess, may change to PO Augmentin when ready for discharge will continue to monitor clinically
[2018-05-20] MEDS: Piperacillin/Tazobact 3.375 gm 100 ML IVPB SCH ×3 (05:15→17:11)
[2018-05-20] MEDS: Potassium & Sodium Phosphate PO SCH (09:13)
[2018-05-20] MEDS ORDERED: Barium Sulfate Susp 2.1% w/v, 2.0% w/w 450 mL Bottle PO ONE (09:15)
[2018-05-20 09:16] LABS: HEMOGLOBIN 14.5 g/dL (14.0-18.0); MEAN CELL VOLUME 84.7 fl (80.0-105.0); MEAN CORPUSCULAR HEMOGLOBIN 29.2 pg (25.0-35.0); MEAN CORPUSCULAR HGB CONC 34.5 g/dl (31.0-37.0); MEAN PLATELET VOLUME 8.8 fl (7.0-11.0); RBC 4.96 10^6/uL (3.5-6.1); RED CELL DISTRIBUTION WIDTH 13.8 % (11.5-14.5); WHITE BLOOD COUNT 5.7 10^3/ul (4.5-11.0)
[2018-05-20 09:33] LABS: BLOOD UREA NITROGEN 5 mg/dL (7-21); CALCIUM 8.9 mg/dL (8.4-10.5); GFR AFRICAN-AMERICAN > 60; GFR NON-AFRICAN AMERICAN > 60
[2018-05-20] MEDS ORDERED: Potassium Chloride 40 mEq/30 ml LIQ UD PO ONE (11:30)
[2018-05-20] MEDS ORDERED: Iohexol 350 MG/100 ML VIAL ONE (12:23)
--- NOTE | 2018-05-20 14:13 | CT ---
Date of service: 05/20/2018 PROCEDURE: CT Abdomen and Pelvis with contrast HISTORY: appendicitis COMPARISON: Comparison made with prior CT scan abdomen pelvis 05/17/2018. TECHNIQUE: Contiguous helical/transaxial sections of the abdomen pelvis performed following intravenous injection of approximately 97 cc Omnipaque contrast material. Note the study is somewhat limited due to streak and beam hardening artifact arising from the upper extremities that result in streak and beam hardening artifact in the upper abdomen. Radiation dose: Total exam DLP = 1040.5 mGy-cm. This CT exam was performed using one or more of the following dose reduction techniques: Automated exposure control, adjustment of the mA and/or kV according to patient size, and/or use of iterative reconstruction technique. FINDINGS: LOWER THORAX: Small left-sided effusion and mild left basilar atelectasis. Trace right effusion and minor right basilar atelectasis. Heart size unchanged. Small hiatal hernia. LIVER: Suspect mild fatty infiltration. Liver exhibits normal size. GALLBLADDER AND BILE DUCTS: Gallbladder is not visible. PANCREAS: Changes of the the pancreas remains atrophic and fatty replaced. SPLEEN: Unremarkable. ADRENALS: No adrenal lesions KIDNEYS AND URETERS: Kidneys demonstrate symmetric nephrograms. No evidence of nephrolithiasis or hydronephrosis VASCULATURE: Unremarkable. No aortic aneurysm. BOWEL: The stomach is distended with oral contrast material. Visualized loops small bowel exhibit normal contour and caliber. No evidence of acute mechanical small bowel obstruction on. Oral contrast material is seen in the colon extending to the level of the rectum. APPENDIX: Interval placement of a drainage catheter which extends through the right parasagittal gluteal region through the sacral notch into the right aspect of the pelvis. There is a ill-defined amorphous density in the right aspect of the pelvis adjacent to and compressing the superolateral border of the urinary bladder. This lesion measures approximately 7.4 x 5.0 cm and may represent evolving abscess and/or phlegmon. Re- demonstrated is a tubular appearing fluid collection abutting intraperitoneal surface lateral wall of the lower abdomen that measures approximately 6.7 x 2.6 cm with 1 or 2 smaller loculated adjacent collections. . These small collections also abut several loops of small bowel and cecum. PERITONEUM: As above. Small fat containing umbilical hernia. There are also small bilateral fat containing inguinal hernias LYMPH NODES: Unremarkable. No enlarged lymph nodes. BLADDER: Urinary bladder is incompletely distended which in part accounts for thick-walled appearance however muscular hypertrophy presumably contributes. Rule out cystitis or other intrinsic/ invasive wall lesion. REPRODUCTIVE: Unremarkable. BONES: Mild multilevel degenerative spondylosis of the lower thoracic and lumbar spine. OTHER FINDINGS: None. IMPRESSION: Interval placement of a pelvic drainage catheter. . There is a ill-defined amorphous density in the right aspect of the pelvis adjacent to and compressing the superolateral border of the urinary bladder. This lesion measures approximately 7.4 x 5.0 cm and may represent evolving abscess and/or phlegmon. Re- demonstrated is a tubular appearing fluid collection abutting intraperitoneal surface lateral wall of the lower abdomen that measures approximately 6.7 x 2.6 cm with 1 or 2 smaller loculated adjacent collections. . The small collections also abut adjacent loops of distal small bowel and cecum.
--- NOTE | 2018-05-20 16:58 | CP.PCM.PN ---
Subjective - Date & Time of Evaluation Date of Evaluation: 05/20/18 Time of Evaluation: 11:50 - Subjective Subjective: Feeling better, eating better, no fevers, abdominal pain is improved, no diarrhea. Objective - Vital Signs/Intake and Output Vital Signs (last 24 hours): Temp Pulse Resp BP Pulse Ox 97.6 F 71 20 157/80 H 93 L 05/19/18 08:15 05/19/18 08:15 05/19/18 08:15 05/19/18 09:20 05/19/18 08:15 Intake and Output: 05/19/18 05/19/18 06:59 18:59 Intake Total 200 Output Total 2250 Balance -2050 - Medications Medications: Current Medications Acetaminophen (Tylenol 650 Mg Supp) 650 mg RC Q4H PRN PRN Reason: Fever >100.4 F Acetaminophen (Tylenol 325mg Tab) 650 mg PO Q6H PRN PRN Reason: Fever >100.4 F Last Admin: 05/15/18 17:23 Dose: 650 mg Amlodipine Besylate (Norvasc) 10 mg PO DAILY [facility] Last Admin: 05/19/18 09:20 Dose: 10 mg Aripiprazole (Abilify) 10 mg PO HS SAIGE Last Admin: 05/18/18 21:23 Dose: 10 mg Clonazepam (Klonopin) 1 mg PO HS SAIGE PRN Reason: Protocol Last Admin: 05/18/18 21:28 Dose: 1 mg Clonazepam (Klonopin) 0.5 mg PO DAILY SAIGE PRN Reason: Protocol Last Admin: 05/19/18 09:17 Dose: 0.5 mg Escitalopram Oxalate (Lexapro) 20 mg PO DAILY SAIGE Last Admin: 05/19/18 09:18 Dose: 20 mg Hydrochlorothiazide (Microzide) 12.5 mg PO DAILY SAIGE Last Admin: 05/19/18 09:18 Dose: 12.5 mg Hydromorphone HCl (Dilaudid) 0.5 mg IVP Q4H PRN PRN Reason: Pain, moderate (4-7) Last Admin: 05/17/18 17:03 Dose: 0.5 mg Piperacillin Sod/Tazobactam Sod (Zosyn 3.375 In Ns 100ml) 100 mls @ 200 mls/hr IVPB Q6 SAIGE PRN Reason: Protocol Stop: 05/23/18 00:01 Last Admin: 05/19/18 12:48 Dose: 200 mls/hr Ondansetron HCl (Zofran Inj) 4 mg IVP Q4 PRN PRN Reason: Nausea/Vomiting Oxycodone/Acetaminophen (Percocet 5/325 Mg Tab) 1 tab PO Q4H PRN PRN Reason: Pain, moderate (4-7) Stop: 05/20/18 15:19 Potassium Phos/Sodium Phos (Neutra-Phos) 2 pkt PO BID SAIGE Stop: 05/20/18 10:01 Last Admin: 05/19/18 09:20 Dose: 2 pkt - Labs Labs: 05/19/18 06:30 05/19/18 06:30 PT 17.0 SECONDS (9.4-12.5) H 05/13/18 14:30 INR 1.48 05/13/18 14:30 - Constitutional Appears: Non-toxic, Chronically Ill - Head Exam Head Exam: NORMAL INSPECTION - ENT Exam ENT Exam: Mucous Membranes Moist - Neck Exam Neck Exam: absent: Meningismus - Respiratory Exam Respiratory Exam: Decreased Breath Sounds - Cardiovascular Exam Cardiovascular Exam: +S1, +S2 - GI/Abdominal Exam GI & Abdominal Exam: Soft. absent: Tenderness Assessment and Plan - Assessment and Plan (Free Text) Plan: Assessment Acute appendicitis with appendiceal abscess S/P IR-guided drainage POD #3 S/P cholecystectomy S/P prostatectomy history of depression history of pneumonia Plan on Zosyn day 7; blood cx are negative - cultures of the abscess are negative discussed with Dr. Madden previously - may change to PO Augmentin when ready for discharge
[2018-05-21] MEDS: Piperacillin/Tazobact 3.375 gm 100 ML IVPB SCH ×2 (00:52→05:36)
[2018-05-21 08:11] VITALS: PULSE 71; RESP 20; TEMP 97.9; O2SAT 95
[2018-05-21 08:34] LABS: HEMOGLOBIN 12.5 g/dL (14.0-18.0); MEAN CELL VOLUME 85.9 fl (80.0-105.0); MEAN CORPUSCULAR HEMOGLOBIN 28.4 pg (25.0-35.0); MEAN CORPUSCULAR HGB CONC 33.1 g/dl (31.0-37.0); MEAN PLATELET VOLUME 8.6 fl (7.0-11.0); RBC 4.4 10^6/uL (3.5-6.1); RED CELL DISTRIBUTION WIDTH 13.8 % (11.5-14.5); WHITE BLOOD COUNT 6.4 10^3/ul (4.5-11.0)
--- NOTE | 2018-05-21 08:37 | CP.PCM.DIS ---
Provider - Provider Date of Admission: 05/13/18 17:53 Attending physician: Gunner Madden MD Primary care physician: Cliff Gtz MD Time Spent in preparation of Discharge (in minutes): 45 Hospital Course - Lab Results Lab Results: Micro Results 05/15/18 18:57 Blood-Venous Blood Culture - Final NO GROWTH AFTER 5 DAYS 05/15/18 18:57 Blood-Venous Gram Stain - Final TEST NOT PERFORMED 05/15/18 18:57 Blood-Venous Blood Culture - Final NO GROWTH AFTER 5 DAYS 05/15/18 18:57 Blood-Venous Gram Stain - Final TEST NOT PERFORMED 05/17/18 16:30 Other: Please Indicate Gram Stain - Final 05/17/18 16:30 Other: Please Indicate Body Fluid Culture - Preliminary NO GROWTH AFTER 3 DAYS 05/15/18 10:00 Blood-Venous Blood Culture - Final NO GROWTH AFTER 5 DAYS 05/15/18 10:00 Blood-Venous Gram Stain - Final TEST NOT PERFORMED 05/15/18 09:30 Blood-Venous Blood Culture - Final NO GROWTH AFTER 5 DAYS 05/15/18 09:30 Blood-Venous Gram Stain - Final TEST NOT PERFORMED 05/17/18 16:30 Abscess - Pelvic Anaerobic Culture - Final NO ANAEROBES ISOLATED. 05/17/18 13:34 Stool C. difficile Antigen & Toxin A,B (M - Final Most Recent Lab Values WBC 5.7 10^3/ul (4.5-11.0) 05/20/18 08:40 RBC 4.96 10^6/uL (3.5-6.1) 05/20/18 08:40 Hgb 14.5 g/dL (14.0-18.0) D 05/20/18 08:40 Hct 42.0 % (42.0-52.0) 05/20/18 08:40 MCV 84.7 fl (80.0-105.0) 05/20/18 08:40 MCH 29.2 pg (25.0-35.0) 05/20/18 08:40 MCHC 34.5 g/dl (31.0-37.0) 05/20/18 08:40 RDW 13.8 % (11.5-14.5) 05/20/18 08:40 Plt Count 374 10^3/uL (120.0-450.0) 05/20/18 08:40 MPV 8.8 fl (7.0-11.0) 05/20/18 08:40 Gran % 80.0 % (50.0-68.0) H 05/18/18 08:30 Lymph % (Auto) 7.9 % (22.0-35.0) L 05/18/18 08:30 [place] % (Auto) 9.6 % (1.0-6.0) H 05/18/18 08:30 Eos % (Auto) 2.2 % (1.5-5.0) 05/18/18 08:30 Baso % (Auto) 0.3 % (0.0-3.0) 05/18/18 08:30 Gran # 6.12 (1.4-6.5) 05/18/18 08:30 Lymph # (Auto) 0.6 (1.2-3.4) L 05/18/18 08:30 [place] # (Auto) 0.7 (0.1-0.6) H 05/18/18 08:30 Eos # (Auto) 0.2 (0.0-0.7) 05/18/18 08:30 Baso # (Auto) 0.02 K/mm3 (0.0-2.0) 05/18/18 08:30 Neutrophils % (Manual) 90 % (50.0-70.0) H 05/13/18 14:30 Lymphocytes % (Manual) 5 % (22.0-35.0) L 05/13/18 14:30 Monocytes % (Manual) 1 % (1.0-6.0) 05/13/18 14:30 Eosinophils % (Manual) 1 % (0.0-3.0) 05/13/18 14:30 Metamyelocytes % 2 % 05/13/18 14:30 Myelocytes % 1 % 05/13/18 14:30 Platelet Evaluation Normal (NORMAL) 05/13/18 14:30 PT 17.0 SECONDS (9.4-12.5) H 05/13/18 14:30 INR 1.48 05/13/18 14:30 Sodium 140 mmol/L (132-148) 05/20/18 08:40 Potassium 3.4 mmol/L (3.6-5.0) L 05/20/18 08:40 Chloride 94 mmol/L (98-107) L 05/20/18 08:40 Carbon Dioxide 38 mmol/L (21-33) H 05/20/18 08:40 Anion Gap 12 (10-20) 05/20/18 08:40 BUN 5 mg/dL (7-21) L 05/20/18 08:40 Creatinine 0.7 mg/dl (0.8-1.5) L 05/20/18 08:40 Est GFR ( Amer) > 60 05/20/18 08:40 Est GFR (Non-Af Amer) > 60 05/20/18 08:40 Random Glucose 115 mg/dL (70-110) H 05/20/18 08:40 Calcium 8.9 mg/dL (8.4-10.5) 05/20/18 08:40 Phosphorus 3.2 mg/dL (2.5-4.5) 05/19/18 06:30 Magnesium 2.0 mg/dL (1.7-2.2) 05/19/18 06:30 Total Bilirubin 0.8 mg/dL (0.2-1.3) 05/19/18 06:30 Direct Bilirubin 0.2 mg/dL (0.0-0.4) 05/13/18 14:30 AST 42 U/L (17-59) 05/19/18 06:30 ALT 43 U/L (7-56) 05/19/18 06:30 Alkaline Phosphatase 59 U/L (38-126) 05/19/18 06:30 Total Protein 6.0 g/dL (5.8-8.3) 05/19/18 06:30 Albumin 3.1 g/dL (3.0-4.8) 05/19/18 06:30 Globulin 2.9 gm/dL 05/19/18 06:30 Albumin/Globulin Ratio 1.1 (1.1-1.8) 05/19/18 06:30 Amylase 49 U/L (35-125) 05/13/18 14:30 Lipase 16 U/L (23-300) L 05/13/18 14:30 Urine Color Yellow (YELLOW) 05/13/18 20:05 Urine Appearance Clear (CLEAR) 05/13/18 20:05 Urine pH 6.0 (4.7-8.0) 05/13/18 20:05 Ur Specific [place] 1.010 (1.005-1.035) 05/13/18 20:05 Urine Protein 30 mg/dL (<30 mg/dL) H 05/13/18 20:05 Urine Glucose (UA) Negative mg/dL (NEGATIVE) 05/13/18 20:05 Urine Ketones Negative mg/dL (NEGATIVE) 05/13/18 20:05 Urine Blood Small (NEGATIVE) H 05/13/18 20:05 Urine Nitrate Negative (NEGATIVE) 05/13/18 20:05 Urine Bilirubin Negative (NEGATIVE) 05/13/18 20:05 Urine Urobilinogen 2.0 E.U./dL (<1 E.U./dL) H 05/13/18 20:05 Ur Leukocyte Esterase Negative Padmini/uL (NEGATIVE) 05/13/18 20:05 Urine RBC 5 - 10 /hpf (0-2) 05/13/18 20:05 Urine WBC 2 - 5 /hpf (0-6) 05/13/18 20:05 Ur Epithelial Cells 3 - 4 /hpf (0-5) 05/13/18 20:05 Urine Bacteria Mod (NEG) 05/13/18 20:05 - Hospital Course Hospital Course: 73 M w PMH of depression, prostate CA, and PSH of cholecystectomy , prostatectomy was admitted with RLQ localized, sharp abdominal pain that radiated to his R back on 05-13-18. Pain started 1 week prior to admission but went away and then recurred the day before admission with associated anorexia. At the time of admission, pt denied fever, nausea, vomiting, diarrhea, CP, SOB, dysuria, hematuria, hematochezia, hematemesis. Pt had a leukocytosis w L shift. Pt was diagnosed with ruptured appendicitis with small appendiceal abscess shown on CT on 05-13-18. Decision was made to treat conservatively and wait for interval appendectomy in 6-8 weeks. Abscess showed interval enlargement and was drained by interventional radiology, Dr Darius Acharya, on 05-17-18. Pt is clinically improving, tolerating diet well, moving his bowels, able to ambulate. Pt instructed to make out pt appointment to have drain removed. Pt to be discharged on PO augmentin. - Date & Time of H&P Date of H&P: 05/21/18 Time of H&P: 08:30 Discharge Exam - Head Exam Head Exam: NORMAL INSPECTION - Eye Exam Eye Exam: Normal appearance - ENT Exam ENT Exam: Mucous Membranes Moist - Neck Exam Neck exam: Full Rom - Respiratory Exam Respiratory Exam: NORMAL BREATHING PATTERN. absent: Accessory Muscle Use, Wheezes, Respiratory Distress, Stridor - Cardiovascular Exam Cardiovascular Exam: REGULAR RHYTHM, RRR, +S1, +S2. absent: Bradycardia, Tachycardia, Diastolic murmur, JVD, Systolic Murmur - GI/Abdominal Exam GI & Abdominal Exam: Normal Bowel Sounds, Soft, Unremarkable. absent: Distended , Firm, Guarding, Rebound, Rigid, Tenderness - Neurological Exam Neurological exam: Alert - Psychiatric Exam Psychiatric exam: Normal Affect, Normal Mood - Skin Skin Exam: Dry, Normal Color, Warm Discharge Plan - Discharge Medications Prescriptions: Amoxicillin/Clavulanate [Augmentin 875 MG-125 MG] 1 tab PO BID #14 tab - Follow Up Plan Condition: GOOD Disposition: HOME/ ROUTINE Patient education suggested?: Yes Instructions: Appendicitis, Adult (DC) Additional Instructions: f/u with Dr Madden in 1 week continue PO augmentin report back to ER if pain worsens, or pt starts having fever/chills make appointment for drain removal in out pt office Referrals: Cliff Gtz MD [Primary Care Provider] -
[2018-05-21 08:43] LABS: ALBUMIN 3.2 g/dL (3.0-4.8); ALT/SGPT 50 U/L (7-56); AST/SGOT 55 U/L (17-59); BLOOD UREA NITROGEN 7 mg/dL (7-21); CALCIUM 8.4 mg/dL (8.4-10.5); GFR AFRICAN-AMERICAN > 60; GFR NON-AFRICAN AMERICAN > 60
--- NOTE | 2018-05-21 09:23 | PN ---
Copied To: Robert Olivares MD Attending MD: Robert Olivares MD DATE: 05/21/2018 SUBJECTIVE: The patient has no complaints of any chest pain. No shortness of breath. He says the abdominal pain is controlled. PHYSICAL EXAMINATION: VITAL SIGNS: Temperature is 98.3, pulse of 81, blood pressure 169/90, respirations 18. GENERAL: The patient is lying in bed, flat, comfortable. HEENT: No oral lesion. Anicteric sclerae. Moist mucosa. NECK: No JVD, adenopathy, or thyromegaly. CARDIOVASCULAR: S1 and S2, regular. No murmurs, rubs, or gallops. LUNGS: Clear to auscultation bilaterally. No wheeze, rales, or rhonchi. ABDOMEN: Bowel sounds are positive, soft, nontender and nondistended. EXTREMITIES: No cyanosis, clubbing or edema. LABORATORY DATA: CT of the abdomen has been reviewed. ASSESSMENT: 1. Acute appendicitis with abscess. 2. Fluid collection superior to the bladder, 4.6 cm. 3. Hypertension. 4. Depression. 5. Dyslipidemia. 6. History of prostate cancer with prostatectomy. 7. Hypophosphatemia, resolved. 8. History of cholecystectomy. 9. Anxiety. PLAN: The patient is being followed by ID. The patient had drainage of the appendiceal abscess. The patient is on day #8 of antibiotics. Cultures had been negative. ID recommended that the patient may change to p.o. antibiotics. The patient is on Klonopin. He is on Lexapro for his anxiety. The patient is on Tylenol. He is tolerating his diet. Robert Olivares MD
[2018-05-21] MEDS ORDERED: Potassium Chloride 20 mEq ER Tab PO ONE (09:45)
[2018-05-21 10:37] VITALS: BP 132/65
--- NOTE | 2018-05-21 14:44 | PN ---
Copied To: Gunner Madden MD Attending MD: Gunner Madden MD DATE: 05/21/2018 SUBJECTIVE: Eddi Chen is seen on the floor. The abdomen is soft, nontender. No fevers or chills. There is still some inflammation in the pelvis. We will follow him as an outpatient. I will see him in the office in about a week. White count is 6.4. The patient is to be discharged on ampicillin. Gunner Madden MD
--- NOTE | 2018-05-21 15:46 | CP.PCM.PN ---
Subjective - Date & Time of Evaluation Date of Evaluation: 05/21/18 Time of Evaluation: 12:10 - Subjective Subjective: Patient is for discharge, no fevers, no abdominal pain is improved, still has abdominal drain with serosanguinous fluid. Objective - Vital Signs/Intake and Output Vital Signs (last 24 hours): Temp Pulse Resp BP Pulse Ox 97.9 F 71 20 132/65 95 05/21/18 08:11 05/21/18 08:11 05/21/18 08:11 05/21/18 10:33 05/21/18 08:11 - Medications Medications: Current Medications Acetaminophen (Tylenol 650 Mg Supp) 650 mg RC Q4H PRN PRN Reason: Fever >100.4 F Acetaminophen (Tylenol 325mg Tab) 650 mg PO Q6H PRN PRN Reason: Fever >100.4 F Last Admin: 05/15/18 17:23 Dose: 650 mg Amlodipine Besylate (Norvasc) 10 mg PO DAILY [facility] Last Admin: 05/21/18 10:33 Dose: 10 mg Aripiprazole (Abilify) 10 mg PO HS [facility] Last Admin: 05/20/18 21:39 Dose: 10 mg Clonazepam (Klonopin) 1 mg PO HS SAIGE PRN Reason: Protocol Last Admin: 05/20/18 21:39 Dose: 1 mg Clonazepam (Klonopin) 0.5 mg PO DAILY SAIGE PRN Reason: Protocol Last Admin: 05/21/18 10:32 Dose: 0.5 mg Escitalopram Oxalate (Lexapro) 20 mg PO DAILY [facility] Last Admin: 05/21/18 10:33 Dose: 20 mg Hydrochlorothiazide (Microzide) 12.5 mg PO DAILY [facility] Last Admin: 05/21/18 10:32 Dose: 12.5 mg Piperacillin Sod/Tazobactam Sod (Zosyn 3.375 In Ns 100ml) 100 mls @ 200 mls/hr IVPB Q6 SAIGE PRN Reason: Protocol Stop: 05/23/18 00:01 Last Admin: 05/21/18 05:36 Dose: 200 mls/hr Ondansetron HCl (Zofran Inj) 4 mg IVP Q4 PRN PRN Reason: Nausea/Vomiting - Labs Labs: 05/21/18 08:20 05/21/18 08:20 PT 17.0 SECONDS (9.4-12.5) H 05/13/18 14:30 INR 1.48 05/13/18 14:30 - Constitutional Appears: Non-toxic, Chronically Ill - Head Exam Head Exam: NORMAL INSPECTION - ENT Exam ENT Exam: Mucous Membranes Moist - Respiratory Exam Respiratory Exam: Decreased Breath Sounds - Cardiovascular Exam Cardiovascular Exam: +S1, +S2 - GI/Abdominal Exam GI & Abdominal Exam: Soft. absent: Tenderness Assessment and Plan - Assessment and Plan (Free Text) Plan: Assessment Acute appendicitis with appendiceal abscess S/P IR-guided drainage POD #4, with indwelling abdominal drain S/P cholecystectomy S/P prostatectomy history of depression history of pneumonia Plan on Zosyn day 8; blood cx are negative - cultures of the abscess are negative discussed with Dr. Madden previously - may change to PO Augmentin when ready for discharge discussed with patient that he needs to follow up with Surgery as an outpatient
== END 2018-05-21 15:30 | disposition home or self-care (01) | DRG 373 ==
LOC: ED 13:10 → ERH 17:53 → 3RSO 21:10
PROVIDERS: ADMIT Surgery; ATTEND Surgery
PROC: 0W9J30Z Drainage of Pelvic Cavity with Drainage Device, Percutaneous Approach (ICD-10-PCS; principal; 2018-05-17 14:00)
DX: K35.3 Acute appendicitis with localized peritonitis (principal); I10 Essential (primary) hypertension; E83.39 Other disorders of phosphorus metabolism; F32.9 Major depressive disorder, single episode, unspecified; F41.9 Anxiety disorder, unspecified; K21.9 Gastro-esophageal reflux disease without esophagitis; E78.5 Hyperlipidemia, unspecified; M54.30 Sciatica, unspecified side; R41.0 Disorientation, unspecified; Z87.01 Personal history of pneumonia (recurrent); Z85.46 Personal history of malignant neoplasm of prostate

== ENCOUNTER 2018-06-15 19:01 | Inpatient (IN) | payer MEDICARE ==
[2018-06-15 20:03] VITALS: BMI 27.7
[2018-06-15] MEDS: Vancomycin 1gm in NS 250ml 1 GM/250 ML BAG IVPB SCH (22:25)
[2018-06-16] MEDS: Albuterol-Ipratrop 3 mg / 0.5 (3 ml) UD IH SCH ×5 (01:30→20:13)
[2018-06-16] MEDS: Pantoprazole 40 mg EC Tab PO SCH ×2 (05:16→17:00)
[2018-06-16] MEDS: Enoxaparin 40 mg Syringe SC SCH (05:16)
[2018-06-16 07:19] LABS: BASO # 0.02 K/mm3 (0.0-2.0); BASO % 0.2 % (0.0-3.0); EOS # 0.2 (0.0-0.7); EOS % 1.7 % (1.5-5.0); GRAN # 8.08 (1.4-6.5); GRAN % 83.4 % (50.0-68.0); HEMOGLOBIN 9.7 g/dL (14.0-18.0); LYMPH # 0.9 (1.2-3.4); LYMPH % 9.1 % (22.0-35.0); MEAN CELL VOLUME 86.7 fl (80.0-105.0); MEAN CORPUSCULAR HEMOGLOBIN 26.9 pg (25.0-35.0); MEAN PLATELET VOLUME 9.2 fl (7.0-11.0); MONO # 0.5 (0.1-0.6); MONO % 5.6 % (1.0-6.0); RBC 3.61 10^6/uL (3.5-6.1); RED CELL DISTRIBUTION WIDTH 14.1 % (11.5-14.5); WHITE BLOOD COUNT 9.7 10^3/ul (4.5-11.0)
--- NOTE | 2018-06-16 09:09 | CP.PCM.HP ---
History of Present Illness - History of Present Illness History of Present Illness: General Surgery - Dr. Madden 73M w/ hx depression and prostate ca s/p prostatectomy, recently with perforated appendicitis and a superior gluteal artery bleed s/p IR drain removal on 05/29. Pt was followed in the hospital after the bleed, with persistent intra-abdominal fluid collections, however he did not require and further surgical or IR intervention for these as they were felt to simply be hematomas, not infected. Pt has continued to have persistent diarrhea, as well as blood in the stool. He has remained stable and was transferred to TCU for continued treatment, monitoring of his electrolytes and rehab. Pt currently denies any complaints other than the persistent diarrhea. PMH: Depression, Prostate Ca PSH: Cholecystectomy, Prostatectomy NKDA Present on Admission - Present on Admission Any Indicators Present on Admission: No Review of Systems - Review of Systems All systems: reviewed and no additional remarkable complaints except (as per HPI ) Past Patient History - Infectious Disease Hx of Infectious Diseases: None - Past Social History Smoking Status: Never Smoked - CARDIAC Hx Cardiac Disorders: No - PULMONARY Hx Respiratory Disorders: Yes Hx Pneumonia: Yes - NEUROLOGICAL Hx Neurological Disorder: No - HEENT Hx HEENT Problems: No - RENAL Hx Chronic Kidney Disease: No - ENDOCRINE/METABOLIC Hx Endocrine Disorders: No - HEMATOLOGICAL/ONCOLOGICAL Hx Blood Transfusions: (not known) Hx Blood Transfusion Reaction: (not known) - INTEGUMENTARY Hx Dermatological Problems: No - MUSCULOSKELETAL/RHEUMATOLOGICAL Hx Musculoskeletal Disorders: Yes (sciatica) Hx Falls: No - GASTROINTESTINAL Hx Gastrointestinal Disorders: Yes Hx Gall Bladder Disease: Yes (Cholecystectomy) Hx Gastroesophageal Reflux: Yes - GENITOURINARY/GYNECOLOGICAL Hx Genitourinary Disorders: Yes Hx Prostate Problems: Yes (prostate ca with prostatectomy) - PSYCHIATRIC Hx Psychophysiologic Disorder: Yes Hx Depression: Yes Hx Substance Use: No - SURGICAL HISTORY Hx Surgeries: Yes - ANESTHESIA Hx Anesthesia Reactions: No Hx Malignant Hyperthermia: No Meds Allergies/Adverse Reactions: Allergies Allergy/AdvReac Type Severity Reaction Status Date / Time No Known Allergies Allergy Verified 05/13/18 13:14 Physical Exam - Constitutional Appears: No Acute Distress - Head Exam Head Exam: ATRAUMATIC, NORMAL INSPECTION, NORMOCEPHALIC - Eye Exam Eye Exam: Normal appearance - Respiratory Exam Respiratory Exam: NORMAL BREATHING PATTERN. absent: Respiratory Distress - Cardiovascular Exam Cardiovascular Exam: REGULAR RHYTHM - GI/Abdominal Exam GI & Abdominal Exam: Distended, Soft. absent: Firm, Guarding, Rebound, Rigid, Tenderness - Neurological Exam Neurological exam: Alert, Oriented x3 - Psychiatric Exam Psychiatric exam: Normal Affect, Normal Mood - Skin Skin Exam: Dry, Intact Results - Vital Signs Recent Vital Signs: Last Vital Signs Temp 98.7 F 06/15/18 23:14 Pulse 78 06/16/18 02:35 Resp 18 06/15/18 23:14 BP 128/87 06/15/18 23:14 Pulse Ox 95 06/15/18 23:14 - Labs Result Diagrams: 06/16/18 06:30 06/16/18 09:05 Labs: Laboratory Results - last 24 hr 06/16/18 06:30 WBC 9.7 RBC 3.61 Hgb 9.7 L Hct 31.3 L MCV 86.7 MCH 26.9 MCHC 31.0 RDW 14.1 Plt Count 427 MPV 9.2 Gran % 83.4 H Lymph % (Auto) 9.1 L [place] % (Auto) 5.6 Eos % (Auto) 1.7 Baso % (Auto) 0.2 Gran # 8.08 H Lymph # (Auto) 0.9 L [place] # (Auto) 0.5 Eos # (Auto) 0.2 Baso # (Auto) 0.02 Assessment & Plan - Assessment and Plan (Free Text) Assessment: 73 yo M s/p perforated appendicitis and superior gluteal a. bleed, now with persistent diarrhea, hypokalemia, weakness -Continue regular/lactose free diet as per GI recommendations -Electrolyte repletion prn -Pain control prn -Encourage PO intake as tolerated -No surgical interventions planned -OOB to chair and ambulation, physical therapy DW Dr. Chano Ferris PGY4
[2018-06-16 09:23] LABS: ALB/GLOB RATIO 0.8 (1.1-1.8); ALBUMIN 2.5 g/dL (3.0-4.8); ALT/SGPT 80 U/L (7-56); AST/SGOT 60 U/L (17-59); BLOOD UREA NITROGEN 8 mg/dL (7-21); CALCIUM 8.1 mg/dL (8.4-10.5); GFR NON-AFRICAN AMERICAN > 60
[2018-06-16] MEDS: Potassium Chloride 40 mEq/30 ml LIQ UD PO SCH ×2 (09:53→17:49)
[2018-06-16] MEDS: Vancomycin 1gm in NS 250ml 1 GM/250 ML BAG IVPB SCH ×2 (09:56→17:49)
[2018-06-16] MEDS ORDERED: Enoxaparin 40 mg Syringe SC SCH (10:00)
--- NOTE | 2018-06-16 10:58 | CP.PCM.CON ---
History of Present Illness - History of Present Illness History of Present Illness: Nephrology Consultation Note: Assessment: Stable Hypokalemia likely due to decreased oral intake and increased GI loss metabolic alkalosis perforated appendicitis with multiple loculated fluid collections in the pelvis Anemia of acute blood loss hx of CA prostate, depression elevated BP, no hx of HTN Plan supplement potassium as ordered IVF as d5NS with 40 meq @ 75 ml/hr to increase amount of daily K supplementation , can d/c IVF once oral intake better added iron and MVI for anemia BP control with meds as ordered. on losartan to 100 mg/day and norvasc 10 mg/day Dose meds/antibiotics for normal GFR. Glycemic control Further work up/management as per primary team, ID Thanks for allowing me to participate in care of your patient. Will follow patient with you. Please call if any Qs. had d/w team Dr Fred Vieyra Office: [phone] Chief Complaint; loose stool Reason for consult: hypokalemia HPI: Pt is a 73 year old male with hx of depression, CA prostate came initially with perforated appendicitis which was managed conservatively with IR guided drainage with catheter which got removed later and led to anemia/blood loss now s/p coiling of R superior gluteal artery also treated for LLL pneumonia , multiple loculated fluid collections in the pelvis being initially planned for IR intervention and or ex lap but now for conservative management found to have HTN with hypokalemia hence consulted renal pt denies nausea/vomitting. c/o daily loose stool and diarrhoea. reports decreased intake and poor appetite. no SOB or chest pain ROS: decreased appetite and oral intake. Cardiovascular: No chest pain. Pulmonary: No shortness of breath Gastrointestinal: no abdominal pain No nausea. No vomiting. has loose stool Genitourinary: No pain while urinating. Denies blood in urine. All other negative except as mentioned in HPI Physical Examination: General Appearance: comfortable, in no acute respiratory distress, co-operative . ill appearing. Vitals reviewed and noted as below Head; Atraumatic, normocephalic ENT: no ulcers no thrush. Tongue is midline. Oropharynx: no rash or ulcers. EYES: Pupils are equal, round and reactive to light accommodation. Eye muscles and extraocular movement intact. Sclera is anicteric. Neck; supple no lymphadenopathy, no thyromegaly or bruit Lungs: Normal respiratory rate/effort. Breath sounds bilateral clear anteriorly Heart: Normal rate. s1s2 normal. No rub or gallop. Extremities: no edema. No varicose veins Neurological: Patient is alert, awake and oriented to person, place and time. No focal deficit. Strength bilateral appropriate and equal Skin: Warm and dry. Normal turgor. No rash. Palpitation: Normal elasticity for age Abdomen: Abdomen is soft/distended. Bowel sounds +. There is no abdominal tenderness, no guarding/rigidity no organomegaly Psych: limited insight and flat affect/mood MSK: no joint tenderness or swelling. Digits and nails normal, no deformity : kidney or bladder not palpable Labs/imaging reviewed. Past medical history, past surgical history, family history, social history, allergy reviewed and noted as below Family hx: no hx of CKD. Rest non-contributory imaging: normal adrenals and kidneys Mg 2.0 TTKG 4 shravan 1 renin 0.1 Past Patient History - Infectious Disease Hx of Infectious Diseases: None - Past Social History Smoking Status: Never Smoked - CARDIAC Hx Cardiac Disorders: No - PULMONARY Hx Respiratory Disorders: Yes Hx Pneumonia: Yes - NEUROLOGICAL Hx Neurological Disorder: No - HEENT Hx HEENT Problems: No - RENAL Hx Chronic Kidney Disease: No - ENDOCRINE/METABOLIC Hx Endocrine Disorders: No - HEMATOLOGICAL/ONCOLOGICAL Hx Blood Transfusions: (not known) Hx Blood Transfusion Reaction: (not known) - INTEGUMENTARY Hx Dermatological Problems: No - MUSCULOSKELETAL/RHEUMATOLOGICAL Hx Musculoskeletal Disorders: Yes (sciatica) Hx Falls: No - GASTROINTESTINAL Hx Gastrointestinal Disorders: Yes Hx Gall Bladder Disease: Yes (Cholecystectomy) Hx Gastroesophageal Reflux: Yes - GENITOURINARY/GYNECOLOGICAL Hx Genitourinary Disorders: Yes Hx Prostate Problems: Yes (prostate ca with prostatectomy) - PSYCHIATRIC Hx Psychophysiologic Disorder: Yes Hx Depression: Yes Hx Substance Use: No - SURGICAL HISTORY Hx Surgeries: Yes - ANESTHESIA Hx Anesthesia Reactions: No Hx Malignant Hyperthermia: No Meds Allergies/Adverse Reactions: Allergies Allergy/AdvReac Type Severity Reaction Status Date / Time No Known Allergies Allergy Verified 05/13/18 13:14 - Medications Medications: Current Medications Acetaminophen (Tylenol 325mg Tab) 650 mg PO Q6H PRN PRN Reason: Fever >100.4 F Albuterol/Ipratropium (Duoneb 3 Mg/0.5 Mg (3 Ml) Ud) 3 ml IH 0200,0800,1400, 2000 [facility] Last Admin: 06/16/18 07:19 Dose: 3 ml Amlodipine Besylate (Norvasc) 10 mg PO DAILY [facility] Last Admin: 06/16/18 09:53 Dose: 10 mg Aripiprazole (Abilify) 10 mg PO DAILY [facility] PRN Reason: Protocol Last Admin: 06/16/18 09:52 Dose: 10 mg Clonazepam (Klonopin) 0.5 mg PO DAILY [facility] PRN Reason: Protocol Last Admin: 06/16/18 09:56 Dose: 0.5 mg Enoxaparin Sodium (Lovenox) 40 mg SC 0600 [facility] PRN Reason: Protocol Last Admin: 06/16/18 05:16 Dose: 40 mg Escitalopram Oxalate (Lexapro) 20 mg PO DAILY [facility] Last Admin: 06/16/18 09:52 Dose: 20 mg Vancomycin HCl (Vancomycin 1gm) 1 gm in 250 mls @ 167 mls/hr IVPB Q12H [facility] PRN Reason: Protocol Last Admin: 06/16/18 09:56 Dose: 167 mls/hr Potassium Chloride 40 meq/ (Dextrose) 1,020 mls @ 75 mls/hr IV .[id number] [facility] Last Admin: 06/15/18 22:25 Dose: Not Given Meropenem 1,000 mg/ Sodium (Chloride) 50 mls @ 100 mls/hr IVPB Q8 [facility] PRN Reason: Protocol Stop: 06/23/18 06:01 Last Admin: 06/16/18 05:16 Dose: 100 mls/hr Losartan Potassium (Cozaar) 100 mg PO DAILY [facility] Last Admin: 06/16/18 09:52 Dose: 100 mg Pantoprazole Sodium (Protonix Ec Tab) 40 mg PO 0600,1600 [facility] Last Admin: 06/16/18 05:16 Dose: 40 mg Potassium Chloride (Potassium Chloride Oral Soln) 40 meq PO BID [facility] Last Admin: 06/16/18 09:53 Dose: 40 meq Results - Vital Signs Recent Vital Signs: Last Vital Signs Temp 98.7 F 06/15/18 23:14 Pulse 78 06/16/18 02:35 Resp 18 06/15/18 23:14 BP 145/70 06/16/18 09:53 Pulse Ox 95 06/15/18 23:14 - Labs Result Diagrams: 06/16/18 06:30 06/16/18 09:05 Labs: Laboratory Results - last 24 hr 06/16/18 06/16/18 06:30 09:05 WBC 9.7 RBC 3.61 Hgb 9.7 L Hct 31.3 L MCV 86.7 MCH 26.9 MCHC 31.0 RDW 14.1 Plt Count 427 MPV 9.2 Gran % 83.4 H Lymph % (Auto) 9.1 L [place] % (Auto) 5.6 Eos % (Auto) 1.7 Baso % (Auto) 0.2 Gran # 8.08 H Lymph # (Auto) 0.9 L [place] # (Auto) 0.5 Eos # (Auto) 0.2 Baso # (Auto) 0.02 Sodium 139 Potassium 3.3 L Chloride 100 Carbon Dioxide 34 H Anion Gap 9 L BUN 8 Creatinine 0.5 L Est GFR ( Amer) > 60 Est GFR (Non-Af Amer) > 60 Random Glucose 122 H Calcium 8.1 L Phosphorus 2.9 Magnesium 1.9 Total Bilirubin 0.7 AST 60 H ALT 80 H Alkaline Phosphatase 64 Total Protein 5.7 L Albumin 2.5 L Globulin 3.2 Albumin/Globulin Ratio 0.8 L
--- NOTE | 2018-06-16 11:02 | CP.PCM.PN ---
<Emil Robin - Last Filed: 06/16/18 11:16> Subjective - Date & Time of Evaluation Date of Evaluation: 06/16/18 Time of Evaluation: 08:40 - Subjective Subjective: PGY6 GI Fellow Progress Note Patient seen and examined bedside this morning. The patient admits to continued loose stool and nursing staff endorse a large watery episode this morning. The patient has little appetite. No nausea, vomiting. Admits to abdominal distention. 12 system ROS performed and negative except where stated Objective - Vital Signs/Intake and Output Vital Signs (last 24 hours): Temp Pulse Resp BP Pulse Ox 98.7 F 78 18 145/70 95 06/15/18 23:14 06/16/18 02:35 06/15/18 23:14 06/16/18 09:53 06/15/18 23:14 - Medications Medications: Current Medications Acetaminophen (Tylenol 325mg Tab) 650 mg PO Q6H PRN PRN Reason: Fever >100.4 F Albuterol/Ipratropium (Duoneb 3 Mg/0.5 Mg (3 Ml) Ud) 3 ml IH 0200,0800,1400, 2000 [facility] Last Admin: 06/16/18 07:19 Dose: 3 ml Amlodipine Besylate (Norvasc) 10 mg PO DAILY [facility] Last Admin: 06/16/18 09:53 Dose: 10 mg Aripiprazole (Abilify) 10 mg PO DAILY [facility] PRN Reason: Protocol Last Admin: 06/16/18 09:52 Dose: 10 mg Clonazepam (Klonopin) 0.5 mg PO DAILY [facility] PRN Reason: Protocol Last Admin: 06/16/18 09:56 Dose: 0.5 mg Enoxaparin Sodium (Lovenox) 40 mg SC 0600 [facility] PRN Reason: Protocol Last Admin: 06/16/18 05:16 Dose: 40 mg Escitalopram Oxalate (Lexapro) 20 mg PO DAILY [facility] Last Admin: 06/16/18 09:52 Dose: 20 mg Ferrous Gluconate (Fergon) 324 mg PO TID [facility] Vancomycin HCl (Vancomycin 1gm) 1 gm in 250 mls @ 167 mls/hr IVPB Q12H [facility] PRN Reason: Protocol Last Admin: 06/16/18 09:56 Dose: 167 mls/hr Potassium Chloride 40 meq/ (Dextrose) 1,020 mls @ 75 mls/hr IV .[id number] [facility] Last Admin: 06/15/18 22:25 Dose: Not Given Meropenem 1,000 mg/ Sodium (Chloride) 50 mls @ 100 mls/hr IVPB Q8 [facility] PRN Reason: Protocol Stop: 06/23/18 06:01 Last Admin: 06/16/18 05:16 Dose: 100 mls/hr Losartan Potassium (Cozaar) 100 mg PO DAILY [facility] Last Admin: 06/16/18 09:52 Dose: 100 mg Pantoprazole Sodium (Protonix Ec Tab) 40 mg PO 0600,1600 [facility] Last Admin: 06/16/18 05:16 Dose: 40 mg Potassium Chloride (Potassium Chloride Oral Soln) 40 meq PO BID [facility] Last Admin: 06/16/18 09:53 Dose: 40 meq Vitamin B Complex/Vit C/Folic Acid (Nephro-Luciano) 1 tab PO 0800 [facility] - Labs Labs: 06/16/18 06:30 06/16/18 09:05 - Constitutional Appears: No Acute Distress, Chronically Ill - Eye Exam Eye Exam: EOMI, PERRL - ENT Exam ENT Exam: Mucous Membranes Moist - Respiratory Exam Respiratory Exam: Clear to Ausculation Bilateral. absent: Rales, Rhonchi, Wheezes - Cardiovascular Exam Cardiovascular Exam: RRR, +S1, +S2 - GI/Abdominal Exam GI & Abdominal Exam: Distended, Soft, Hypoactive Bowel Sounds. absent: Firm, Guarding, Rigid, Tenderness, Organomegaly Additional comments: tympanic - Extremities Exam Extremities Exam: Normal Inspection. absent: Pedal Edema - Neurological Exam Neurological Exam: Alert, Awake, Oriented x3 - Psychiatric Exam Psychiatric exam: Depressed - Skin Skin Exam: Dry, Warm Assessment and Plan - Assessment and Plan (Free Text) Assessment: Patient is a 73yo male with PMHx significant for prostate cancer s/p prostatectomy, depression who presented for evaluation following complication with surgical drain removal, diarrhea, hypokalemia and FOBT+ stool. -Diarrhea -Abnormal LFTs -FOBT+ stool Plan: -Patient has been on prolonged courses of antibiotic therapy which may be contributing to ongoing diarrhea -C diff and stool culture negative -Diet advanced by surgical service, recommend lactose free diet -May benefit from endoscopic evaluation prior to discharge pending clinical course <Dara Chandler V - Last Filed: 06/16/18 22:23> Objective - Vital Signs/Intake and Output Vital Signs (last 24 hours): Temp Pulse Resp BP Pulse Ox 98 F 79 18 130/68 97 06/16/18 16:00 06/16/18 16:00 06/16/18 16:00 06/16/18 16:00 06/16/18 16:00 - Medications Medications: Current Medications Acetaminophen (Tylenol 325mg Tab) 650 mg PO Q6H PRN PRN Reason: Fever >100.4 F Albuterol/Ipratropium (Duoneb 3 Mg/0.5 Mg (3 Ml) Ud) 3 ml IH 0200,0800,1400, 2000 [facility] Last Admin: 06/16/18 20:13 Dose: 3 ml Amlodipine Besylate (Norvasc) 10 mg PO DAILY [facility] Last Admin: 06/16/18 09:53 Dose: 10 mg Aripiprazole (Abilify) 10 mg PO DAILY [facility] PRN Reason: Protocol Last Admin: 06/16/18 09:52 Dose: 10 mg Clonazepam (Klonopin) 0.5 mg PO DAILY [facility] PRN Reason: Protocol Last Admin: 06/16/18 09:56 Dose: 0.5 mg Enoxaparin Sodium (Lovenox) 40 mg SC 0600 [facility] PRN Reason: Protocol Last Admin: 06/16/18 05:16 Dose: 40 mg Escitalopram Oxalate (Lexapro) 20 mg PO DAILY [facility] Last Admin: 06/16/18 09:52 Dose: 20 mg Ferrous Gluconate (Fergon) 324 mg PO TID [facility] Last Admin: 06/16/18 17:49 Dose: 324 mg Potassium Chloride 40 meq/ (Dextrose) 1,020 mls @ 75 mls/hr IV .[id number] [facility] Last Admin: 06/16/18 11:27 Dose: Not Given Meropenem 1,000 mg/ Sodium (Chloride) 50 mls @ 100 mls/hr IVPB Q8 [facility] PRN Reason: Protocol Last Admin: 06/16/18 21:49 Dose: 100 mls/hr Vancomycin HCl (Vancomycin 1gm) 1 gm in 250 mls @ 167 mls/hr IVPB 0600,1800 [facility] PRN Reason: Protocol Last Admin: 06/16/18 17:49 Dose: 167 mls/hr Losartan Potassium (Cozaar) 100 mg PO DAILY [facility] Last Admin: 06/16/18 09:52 Dose: 100 mg Pantoprazole Sodium (Protonix Ec Tab) 40 mg PO 0600,1600 [facility] Last Admin: 06/16/18 17:00 Dose: 40 mg Potassium Chloride (Potassium Chloride Oral Soln) 40 meq PO BID [facility] Last Admin: 06/16/18 17:49 Dose: 40 meq Vitamin B Complex/Vit C/Folic Acid (Nephro-Luciano) 1 tab PO 0800 [facility] - Labs Labs: 06/16/18 06:30 06/16/18 09:05 Attending/Attestation - Attestation I have personally seen and examined this patient.: Yes I have fully participated in the care of the patient.: Yes I have reviewed all pertinent clinical information, including history, physical exam and plan: Yes Notes (Text): This is an addendum to GI progress report dictated by the GI Fellow.The patient was seen and examined earlier. Medical records, lab studies, imagings were reviewed. Last 24 hours events reviewed. Agreed with the above treatment plan as outlined in GI Fellow 's notes with the addition of the following Patient is tolerating diet Abdomen still remains softly distended, nontender Still has diarrhea Anemia, history of colon polyp, history of GERD Abnormal LFTs history of status post cholecystectomy Plan Would benefit from EGD and colonoscopy to further evaluate. Patient is in TCU and this may be considered based on his clinical force before his discharge or at the time of discharge based on his clinical course Follow-up hemoglobin hematocrit 06/16/18 22:20
--- NOTE | 2018-06-16 14:58 | CP.PCM.CON ---
History of Present Illness - History of Present Illness History of Present Illness: 73 year old male with PMH of S/P cholecystectomy, S/P prostatectomy, history of depression, history of pneumonia, history of appendicitis with appendiceal abscess was [place] [facility] [place] treated for appendiceal abscesses with acute appendicitis. This most recent admission showed multiple fluid collections, but were not amenable for IR-guided drainage. He has been undergoing conservative treatment with IV antibiotics. He is now transferred to [facility] for continued medical therapy and physical rehab. He is currently comfortable in bed, no fever or chills, no increased pain in the abdomen, has some loose bowel movement, no headache or dizziness, no chest pain, no SOB, no cough or colds, no dysuria. Review of Systems - Review of Systems All systems: reviewed and no additional remarkable complaints except (as per HPI ) Past Patient History - Infectious Disease Hx of Infectious Diseases: None - Past Social History Smoking Status: Never Smoked - CARDIAC Hx Cardiac Disorders: No - PULMONARY Hx Respiratory Disorders: Yes Hx Pneumonia: Yes - NEUROLOGICAL Hx Neurological Disorder: No - HEENT Hx HEENT Problems: No - RENAL Hx Chronic Kidney Disease: No - ENDOCRINE/METABOLIC Hx Endocrine Disorders: No - HEMATOLOGICAL/ONCOLOGICAL Hx Blood Transfusions: (not known) Hx Blood Transfusion Reaction: (not known) - INTEGUMENTARY Hx Dermatological Problems: No - MUSCULOSKELETAL/RHEUMATOLOGICAL Hx Musculoskeletal Disorders: Yes (sciatica) Hx Falls: No - GASTROINTESTINAL Hx Gastrointestinal Disorders: Yes Hx Gall Bladder Disease: Yes (Cholecystectomy) Hx Gastroesophageal Reflux: Yes - GENITOURINARY/GYNECOLOGICAL Hx Genitourinary Disorders: Yes Hx Prostate Problems: Yes (prostate ca with prostatectomy) - PSYCHIATRIC Hx Psychophysiologic Disorder: Yes Hx Depression: Yes Hx Substance Use: No - SURGICAL HISTORY Hx Surgeries: Yes - ANESTHESIA Hx Anesthesia Reactions: No Hx Malignant Hyperthermia: No Meds Allergies/Adverse Reactions: Allergies Allergy/AdvReac Type Severity Reaction Status Date / Time No Known Allergies Allergy Verified 05/13/18 13:14 - Medications Medications: Current Medications Acetaminophen (Tylenol 325mg Tab) 650 mg PO Q6H PRN PRN Reason: Fever >100.4 F Albuterol/Ipratropium (Duoneb 3 Mg/0.5 Mg (3 Ml) Ud) 3 ml IH 0200,0800,1400, 2000 [facility] Amlodipine Besylate (Norvasc) 10 mg PO DAILY [facility] Aripiprazole (Abilify) 10 mg PO DAILY [facility] PRN Reason: Protocol Clonazepam (Klonopin) 0.5 mg PO DAILY [facility] PRN Reason: Protocol Enoxaparin Sodium (Lovenox) 40 mg SC 0600 [facility] PRN Reason: Protocol Escitalopram Oxalate (Lexapro) 20 mg PO DAILY [facility] Vancomycin HCl (Vancomycin 1gm) 1 gm in 250 mls @ 167 mls/hr IVPB Q12H [facility] PRN Reason: Protocol Last Admin: 06/15/18 22:25 Dose: 167 mls/hr Potassium Chloride 40 meq/ (Dextrose) 1,020 mls @ 75 mls/hr IV .[id number] [facility] Last Admin: 06/15/18 22:25 Dose: Not Given Meropenem 1,000 mg/ Sodium (Chloride) 50 mls @ 100 mls/hr IVPB Q12 [facility] PRN Reason: Protocol Stop: 06/16/18 10:29 Losartan Potassium (Cozaar) 100 mg PO DAILY [facility] Pantoprazole Sodium (Protonix Ec Tab) 40 mg PO 0600,1600 [facility] Potassium Chloride (Potassium Chloride Oral Soln) 40 meq PO BID [facility] Physical Exam - Constitutional Appears: No Acute Distress, Chronically Ill - Head Exam Head Exam: NORMAL INSPECTION - ENT Exam ENT Exam: Mucous Membranes Moist - Neck Exam Neck exam: Negative for: Meningismus - Respiratory Exam Respiratory Exam: Decreased Breath Sounds - Cardiovascular Exam Cardiovascular Exam: +S1, +S2 - GI/Abdominal Exam GI & Abdominal Exam: Soft. absent: Tenderness Results - Labs Result Diagrams: 06/16/18 06:30 06/16/18 09:05 Assessment & Plan - Assessment and Plan (Free Text) Plan: Assessment intra-abdominal abscesses in this patient S/P acute appendicitis with appendiceal abscess S/P IR-guided drainage S/P cholecystectomy S/P prostatectomy history of depression history of pneumonia Plan on Vancomycin and Merrem - follow up plan of Surgery for either ex-lap or IR- guided drainage (currently Surgery wants to be conservative and continue to observe the fluid collections clinically) will continue to monitor clinically
[2018-06-17] MEDS: Vancomycin 1gm in NS 250ml 1 GM/250 ML BAG IVPB SCH (05:25)
[2018-06-17] MEDS: Enoxaparin 40 mg Syringe SC SCH (06:43)
[2018-06-17] MEDS: Pantoprazole 40 mg EC Tab PO SCH ×2 (06:44→19:01)
[2018-06-17 06:53] LABS: BASO # 0.01 K/mm3 (0.0-2.0); BASO % 0.1 % (0.0-3.0); EOS # 0.2 (0.0-0.7); EOS % 2.1 % (1.5-5.0); GRAN # 7.37 (1.4-6.5); GRAN % 82.1 % (50.0-68.0); HEMOGLOBIN 9.8 g/dL (14.0-18.0); LYMPH # 0.8 (1.2-3.4); LYMPH % 9.4 % (22.0-35.0); MEAN CELL VOLUME 86.2 fl (80.0-105.0); MEAN CORPUSCULAR HGB CONC 31.3 g/dl (31.0-37.0); MEAN PLATELET VOLUME 9.2 fl (7.0-11.0); MONO # 0.6 (0.1-0.6); MONO % 6.3 % (1.0-6.0); RBC 3.63 10^6/uL (3.5-6.1); RED CELL DISTRIBUTION WIDTH 14.1 % (11.5-14.5)
[2018-06-17 06:56] LABS: BLOOD UREA NITROGEN 8 mg/dL (7-21); CALCIUM 7.8 mg/dL (8.4-10.5); GFR NON-AFRICAN AMERICAN > 60
[2018-06-17] MEDS: Albuterol-Ipratrop 3 mg / 0.5 (3 ml) UD IH SCH ×3 (07:14→19:44)
--- NOTE | 2018-06-17 08:07 | CP.PCM.PN ---
Subjective - Date & Time of Evaluation Date of Evaluation: 06/17/18 Time of Evaluation: 08:02 - Subjective Subjective: General Surgery - Dr. Madden Pt S&E. JEFF. Pt denies any complaints. He continues to have large amounts of watery diarrhea. He denies any visible blood in the stool. No fevers/chills , nausea/vomiting. Objective - Vital Signs/Intake and Output Vital Signs (last 24 hours): Temp Pulse Resp BP Pulse Ox 98 F 79 18 130/68 97 06/16/18 16:00 06/16/18 16:00 06/16/18 16:00 06/16/18 16:00 06/16/18 16:00 Intake and Output: 06/17/18 06/17/18 06:59 18:59 Intake Total 1050 Balance 1050 - Medications Medications: Current Medications Acetaminophen (Tylenol 325mg Tab) 650 mg PO Q6H PRN PRN Reason: Fever >100.4 F Albuterol/Ipratropium (Duoneb 3 Mg/0.5 Mg (3 Ml) Ud) 3 ml IH 0200,0800,1400, 2000 [facility] Last Admin: 06/17/18 07:14 Dose: 3 ml Amlodipine Besylate (Norvasc) 10 mg PO DAILY [facility] Last Admin: 06/16/18 09:53 Dose: 10 mg Aripiprazole (Abilify) 10 mg PO DAILY [facility] PRN Reason: Protocol Last Admin: 06/16/18 09:52 Dose: 10 mg Clonazepam (Klonopin) 0.5 mg PO DAILY [facility] PRN Reason: Protocol Last Admin: 06/16/18 09:56 Dose: 0.5 mg Enoxaparin Sodium (Lovenox) 40 mg SC 0600 [facility] PRN Reason: Protocol Last Admin: 06/17/18 06:43 Dose: 40 mg Escitalopram Oxalate (Lexapro) 20 mg PO DAILY [facility] Last Admin: 06/16/18 09:52 Dose: 20 mg Ferrous Gluconate (Fergon) 324 mg PO TID [facility] Last Admin: 06/16/18 17:49 Dose: 324 mg Potassium Chloride 40 meq/ (Dextrose) 1,020 mls @ 75 mls/hr IV .[id number] [facility] Last Admin: 06/17/18 01:18 Dose: Not Given Losartan Potassium (Cozaar) 100 mg PO DAILY [facility] Last Admin: 06/16/18 09:52 Dose: 100 mg Pantoprazole Sodium (Protonix Ec Tab) 40 mg PO 0600,1600 [facility] Last Admin: 06/17/18 06:44 Dose: 40 mg Potassium Chloride (Potassium Chloride Oral Soln) 40 meq PO BID [facility] Last Admin: 06/16/18 17:49 Dose: 40 meq Vitamin B Complex/Vit C/Folic Acid (Nephro-Luciano) 1 tab PO 0800 [facility] - Labs Labs: 06/17/18 05:00 06/17/18 05:00 - Constitutional Appears: No Acute Distress - Head Exam Head Exam: ATRAUMATIC, NORMAL INSPECTION, NORMOCEPHALIC - Eye Exam Eye Exam: Normal appearance - Respiratory Exam Respiratory Exam: NORMAL BREATHING PATTERN. absent: Respiratory Distress - Cardiovascular Exam Cardiovascular Exam: REGULAR RHYTHM - GI/Abdominal Exam GI & Abdominal Exam: Distended, Soft. absent: Firm, Guarding, Tenderness, Rebound - Neurological Exam Neurological Exam: Alert, Oriented x3 - Psychiatric Exam Psychiatric exam: Normal Affect, Normal Mood - Skin Skin Exam: Dry, Intact Assessment and Plan - Assessment and Plan (Free Text) Assessment: 73 yo M s/p perforated appendicitis and superior gluteal a. bleed, now with persistent diarrhea, hypokalemia, weakness -Continue regular/lactose free diet as per GI recommendations -Electrolyte repletion prn -Pain control prn -Encourage PO intake -Discontinue Abx, no intra-abdominal infection currently -OOB and ambulation, physical therapy DW Dr. Chano Ferris PGY4
[2018-06-17] MEDS: Multivitamin Vitamin B Complex (Nephro-Vite) Tab PO SCH (09:00)
--- NOTE | 2018-06-17 10:25 | CP.PCM.PN ---
Subjective - Date & Time of Evaluation Date of Evaluation: 06/17/18 Time of Evaluation: 10:20 - Subjective Subjective: Resting comfortably in bed, no increased pain in the abdomen, no fevers. Having loose bowel movements. Objective - Vital Signs/Intake and Output Vital Signs (last 24 hours): Temp Pulse Resp BP Pulse Ox 98.7 F 78 18 145/70 95 06/15/18 23:14 06/16/18 02:35 06/15/18 23:14 06/16/18 09:53 06/15/18 23:14 - Medications Medications: Current Medications Acetaminophen (Tylenol 325mg Tab) 650 mg PO Q6H PRN PRN Reason: Fever >100.4 F Albuterol/Ipratropium (Duoneb 3 Mg/0.5 Mg (3 Ml) Ud) 3 ml IH 0200,0800,1400, 2000 [facility] Last Admin: 06/16/18 13:31 Dose: 3 ml Amlodipine Besylate (Norvasc) 10 mg PO DAILY [facility] Last Admin: 06/16/18 09:53 Dose: 10 mg Aripiprazole (Abilify) 10 mg PO DAILY [facility] PRN Reason: Protocol Last Admin: 06/16/18 09:52 Dose: 10 mg Clonazepam (Klonopin) 0.5 mg PO DAILY [facility] PRN Reason: Protocol Last Admin: 06/16/18 09:56 Dose: 0.5 mg Enoxaparin Sodium (Lovenox) 40 mg SC 0600 [facility] PRN Reason: Protocol Last Admin: 06/16/18 05:16 Dose: 40 mg Escitalopram Oxalate (Lexapro) 20 mg PO DAILY [facility] Last Admin: 06/16/18 09:52 Dose: 20 mg Ferrous Gluconate (Fergon) 324 mg PO TID [facility] Last Admin: 06/16/18 13:29 Dose: 324 mg Potassium Chloride 40 meq/ (Dextrose) 1,020 mls @ 75 mls/hr IV .[id number] [facility] Last Admin: 06/16/18 11:27 Dose: Not Given Losartan Potassium (Cozaar) 100 mg PO DAILY [facility] Last Admin: 06/16/18 09:52 Dose: 100 mg Pantoprazole Sodium (Protonix Ec Tab) 40 mg PO 0600,1600 [facility] Last Admin: 06/16/18 05:16 Dose: 40 mg Potassium Chloride (Potassium Chloride Oral Soln) 40 meq PO BID [facility] Last Admin: 06/16/18 09:53 Dose: 40 meq Vitamin B Complex/Vit C/Folic Acid (Nephro-Luciano) 1 tab PO 0800 [facility] - Labs Labs: 06/16/18 06:30 06/16/18 09:05 - Constitutional Appears: No Acute Distress, Chronically Ill - Head Exam Head Exam: NORMAL INSPECTION - Neck Exam Neck Exam: absent: Meningismus - Respiratory Exam Respiratory Exam: Decreased Breath Sounds - Cardiovascular Exam Cardiovascular Exam: +S1, +S2 - GI/Abdominal Exam GI & Abdominal Exam: Soft. absent: Tenderness Assessment and Plan - Assessment and Plan (Free Text) Plan: Assessment intra-abdominal abscesses in this patient S/P acute appendicitis with appendiceal abscess S/P IR-guided drainage; with fluid collections, abscesses or hematoma S/P cholecystectomy S/P prostatectomy history of depression history of pneumonia Plan on Vancomycin and Merrem - as discussed with Surgery, their thought is that the fluid collections may be hematomas - since patient is having LBM and may be antibiotic-associated, will d/c antibiotics for now, monitor BM's, check stool for C. diff. again and trend WBC count surgery will also continue to monitor
[2018-06-17] MEDS: Potassium Chloride 40 mEq/30 ml LIQ UD PO SCH (10:45)
--- NOTE | 2018-06-17 12:20 | CP.PCM.PN ---
Subjective - Date & Time of Evaluation Date of Evaluation: 06/17/18 Time of Evaluation: 12:19 - Subjective Subjective: Nephrology Consultation Note: Assessment: Stable Hypokalemia likely due to decreased oral intake and increased GI loss metabolic alkalosis perforated appendicitis with multiple loculated fluid collections in the pelvis Anemia of acute blood loss hx of CA prostate, depression elevated BP, no hx of HTN Plan supplement potassium as ordered IVF as d5NS with 40 meq @ 75 ml/hr to increase amount of daily K supplementation , can d/c IVF once oral intake better added iron and MVI for anemia BP control with meds as ordered. on losartan to 100 mg/day and norvasc 10 mg/day Dose meds/antibiotics for normal GFR. Glycemic control Further work up/management as per primary team, ID Thanks for allowing me to participate in care of your patient. Will follow patient with you. Please call if any Qs. had d/w team Dr Fred Vieyra Office: [phone] Chief Complaint; loose stool Reason for consult: hypokalemia HPI: Pt is a 73 year old male with hx of depression, CA prostate came initially with perforated appendicitis which was managed conservatively with IR guided drainage with catheter which got removed later and led to anemia/blood loss now s/p coiling of R superior gluteal artery also treated for LLL pneumonia , multiple loculated fluid collections in the pelvis being initially planned for IR intervention and or ex lap but now for conservative management found to have HTN with hypokalemia hence consulted renal pt denies nausea/vomitting. c/o daily loose stool and diarrhoea. reports decreased intake and poor appetite. no SOB or chest pain ROS: decreased appetite and oral intake. Cardiovascular: No chest pain. Pulmonary: No shortness of breath Gastrointestinal: no abdominal pain No nausea. No vomiting. has loose stool Genitourinary: No pain while urinating. Denies blood in urine. All other negative except as mentioned in HPI Physical Examination: General Appearance: comfortable, in no acute respiratory distress, co-operative . ill appearing. Vitals reviewed and noted as below Head; Atraumatic, normocephalic ENT: no ulcers no thrush. Tongue is midline. Oropharynx: no rash or ulcers. EYES: Pupils are equal, round and reactive to light accommodation. Eye muscles and extraocular movement intact. Sclera is anicteric. Neck; supple no lymphadenopathy, no thyromegaly or bruit Lungs: Normal respiratory rate/effort. Breath sounds bilateral clear anteriorly Heart: Normal rate. s1s2 normal. No rub or gallop. Extremities: no edema. No varicose veins Neurological: Patient is alert, awake and oriented to person, place and time. No focal deficit. Strength bilateral appropriate and equal Skin: Warm and dry. Normal turgor. No rash. Palpitation: Normal elasticity for age Abdomen: Abdomen is soft/distended. Bowel sounds +. There is no abdominal tenderness, no guarding/rigidity no organomegaly Psych: limited insight and flat affect/mood MSK: no joint tenderness or swelling. Digits and nails normal, no deformity : kidney or bladder not palpable Labs/imaging reviewed. Past medical history, past surgical history, family history, social history, allergy reviewed and noted as below Family hx: no hx of CKD. Rest non-contributory imaging: normal adrenals and kidneys Mg 2.0 TTKG 4 shravan 1 renin 0.1 Objective - Vital Signs/Intake and Output Vital Signs (last 24 hours): Temp Pulse Resp BP Pulse Ox 98 F 79 18 169/89 H 97 06/16/18 16:00 06/16/18 16:00 06/16/18 16:00 06/17/18 10:45 06/16/18 16:00 Intake and Output: 06/17/18 06/17/18 06:59 18:59 Intake Total 1050 Balance 1050 - Medications Medications: Current Medications Acetaminophen (Tylenol 325mg Tab) 650 mg PO Q6H PRN PRN Reason: Fever >100.4 F Albuterol/Ipratropium (Duoneb 3 Mg/0.5 Mg (3 Ml) Ud) 3 ml 0200,0800,1400, 2000 [facility] Last Admin: 06/17/18 07:14 Dose: 3 ml Amlodipine Besylate (Norvasc) 10 mg PO DAILY [facility] Last Admin: 06/17/18 10:45 Dose: 10 mg Aripiprazole (Abilify) 10 mg PO DAILY [facility] PRN Reason: Protocol Last Admin: 06/17/18 10:43 Dose: 10 mg Clonazepam (Klonopin) 0.5 mg PO DAILY [facility] PRN Reason: Protocol Last Admin: 06/17/18 10:48 Dose: 0.5 mg Enoxaparin Sodium (Lovenox) 40 mg SC 0600 [facility] PRN Reason: Protocol Last Admin: 06/17/18 06:43 Dose: 40 mg Escitalopram Oxalate (Lexapro) 20 mg PO DAILY [facility] Last Admin: 06/17/18 10:45 Dose: 20 mg Ferrous Gluconate (Fergon) 324 mg PO TID [facility] Last Admin: 06/17/18 10:44 Dose: 324 mg Potassium Chloride 40 meq/ (Dextrose) 1,020 mls @ 75 mls/hr IV .[id number] [facility] Last Admin: 06/17/18 01:18 Dose: Not Given Losartan Potassium (Cozaar) 100 mg PO DAILY [facility] Last Admin: 06/17/18 10:44 Dose: 100 mg Pantoprazole Sodium (Protonix Ec Tab) 40 mg PO 0600,1600 [facility] Last Admin: 06/17/18 06:44 Dose: 40 mg Potassium Chloride (Potassium Chloride Oral Soln) 40 meq PO BID [facility] Last Admin: 06/17/18 10:45 Dose: 40 meq Vitamin B Complex/Vit C/Folic Acid (Nephro-Luciano) 1 tab PO 0800 [facility] Last Admin: 06/17/18 09:00 Dose: 1 tab - Labs Labs: 06/17/18 05:00 06/17/18 05:00
--- NOTE | 2018-06-17 18:55 | PN ---
DATE: 06/17/2018 SUBJECTIVE: Eddi Chen is afebrile. Vital signs are stable. White count is normal. We will repeat a CAT scan on Monday. Discussed with covering for Dr. Chandler. Drains were removed. The antibiotics are probably the source of the diarrhea. Gunner Madden MD
[2018-06-18] MEDS: Enoxaparin 40 mg Syringe SC SCH (06:00)
[2018-06-18] MEDS: Pantoprazole 40 mg EC Tab PO SCH ×2 (06:00→17:00)
[2018-06-18 06:36] LABS: BASO # 0.01 K/mm3 (0.0-2.0); BASO % 0.1 % (0.0-3.0); EOS # 0.2 (0.0-0.7); EOS % 1.8 % (1.5-5.0); GRAN # 8.58 (1.4-6.5); GRAN % 84.6 % (50.0-68.0); HEMOGLOBIN 10.3 g/dL (14.0-18.0); LYMPH # 0.8 (1.2-3.4); MEAN CELL VOLUME 85.1 fl (80.0-105.0); MEAN CORPUSCULAR HEMOGLOBIN 27.4 pg (25.0-35.0); MEAN CORPUSCULAR HGB CONC 32.2 g/dl (31.0-37.0); MEAN PLATELET VOLUME 9.2 fl (7.0-11.0); MONO # 0.6 (0.1-0.6); MONO % 5.5 % (1.0-6.0); RBC 3.76 10^6/uL (3.5-6.1); WHITE BLOOD COUNT 10.1 10^3/ul (4.5-11.0)
[2018-06-18] MEDS: Multivitamin Vitamin B Complex (Nephro-Vite) Tab PO SCH (07:53)
--- NOTE | 2018-06-18 07:53 | CP.PCM.PN ---
Subjective - Date & Time of Evaluation Date of Evaluation: 06/18/18 Time of Evaluation: 06:50 - Subjective Subjective: Micky Barrera DO, PGY-1 Surgery Progress Note for Dr. Madden Patient was seen and examined at bedside with surgery team. His main complaint this AM is continued loose stools and feels he is going to the bathroom all the time. He was afebrile overnight and denies nausea/vomiting. Objective - Vital Signs/Intake and Output Vital Signs (last 24 hours): Temp Pulse Resp BP Pulse Ox 98.3 F 81 16 137/75 75 L 06/17/18 16:00 06/17/18 16:00 06/17/18 16:00 06/17/18 16:00 06/17/18 16:00 - Medications Medications: Current Medications Acetaminophen (Tylenol 325mg Tab) 650 mg PO Q6H PRN PRN Reason: Fever >100.4 F Albuterol/Ipratropium (Duoneb 3 Mg/0.5 Mg (3 Ml) Ud) 3 ml IH 0200,0800,1400, 2000 [facility] Last Admin: 06/17/18 19:44 Dose: 3 ml Amlodipine Besylate (Norvasc) 10 mg PO DAILY [facility] Last Admin: 06/17/18 10:45 Dose: 10 mg Aripiprazole (Abilify) 10 mg PO DAILY [facility] PRN Reason: Protocol Last Admin: 06/17/18 10:43 Dose: 10 mg Clonazepam (Klonopin) 0.5 mg PO DAILY [facility] PRN Reason: Protocol Last Admin: 06/17/18 10:48 Dose: 0.5 mg Enoxaparin Sodium (Lovenox) 40 mg SC 0600 [facility] PRN Reason: Protocol Last Admin: 06/18/18 06:00 Dose: 40 mg Escitalopram Oxalate (Lexapro) 20 mg PO DAILY [facility] Last Admin: 06/17/18 10:45 Dose: 20 mg Ferrous Gluconate (Fergon) 324 mg PO TID [facility] Last Admin: 06/17/18 19:00 Dose: 324 mg Potassium Chloride 40 meq/ (Dextrose) 1,020 mls @ 75 mls/hr IV .[id number] [facility] Last Admin: 06/18/18 04:23 Dose: 75 mls/hr Losartan Potassium (Cozaar) 100 mg PO DAILY [facility] Last Admin: 06/17/18 10:44 Dose: 100 mg Pantoprazole Sodium (Protonix Ec Tab) 40 mg PO 0600,1600 [facility] Last Admin: 06/18/18 06:00 Dose: 40 mg Potassium Chloride (Potassium Chloride Oral Soln) 40 meq PO BID [facility] Last Admin: 06/17/18 10:45 Dose: 40 meq Vitamin B Complex/Vit C/Folic Acid (Nephro-Luciano) 1 tab PO 0800 [facility] Last Admin: 06/17/18 09:00 Dose: 1 tab - Labs Labs: 06/18/18 06:00 06/17/18 05:00 - Constitutional Appears: Non-toxic, No Acute Distress - Head Exam Head Exam: ATRAUMATIC, NORMAL INSPECTION - Eye Exam Eye Exam: Normal appearance - ENT Exam ENT Exam: Mucous Membranes Moist - Neck Exam Neck Exam: Full ROM - Respiratory Exam Respiratory Exam: absent: Accessory Muscle Use, Respiratory Distress - Cardiovascular Exam Cardiovascular Exam: +S1, +S2 - GI/Abdominal Exam GI & Abdominal Exam: Distended. absent: Firm, Guarding, Tenderness, Rebound - Extremities Exam Extremities Exam: Full ROM, Normal Inspection - Neurological Exam Neurological Exam: Alert, Awake, Oriented x3 - Psychiatric Exam Psychiatric exam: Normal Affect, Normal Mood - Skin Skin Exam: Dry, Intact, Normal Color, Warm Assessment and Plan - Assessment and Plan (Free Text) Assessment: 73 year old male s/p coiling of R superior gluteal artery and s/p removal of IR drain placed for perforated appendicitis. Plan: -D/c antibiotics per Dr. Huynh -Suspect intra-abdominal fluid collections are hematomas -Will repeat CT abdomen with PO and IV contrast tomorrow -Hypokalemia stable today, continue to replete -Nephrology following, recs appreciated Case and plan discussed with Dr. Chano Barrera, DO IM Resident PGY-1
[2018-06-18] MEDS: Albuterol-Ipratrop 3 mg / 0.5 (3 ml) UD IH SCH ×3 (08:40→20:17)
[2018-06-18] MEDS: Potassium Chloride 40 mEq/30 ml LIQ UD PO SCH ×2 (10:01→17:01)
[2018-06-18 10:56] LABS: BLOOD UREA NITROGEN 6 mg/dL (7-21); CALCIUM 8.2 mg/dL (8.4-10.5); GFR NON-AFRICAN AMERICAN > 60
--- NOTE | 2018-06-18 11:55 | CP.PCM.PN ---
<Shalom Mendez - Last Filed: 06/18/18 11:52> Subjective - Date & Time of Evaluation Date of Evaluation: 06/18/18 Time of Evaluation: 11:52 - Subjective Subjective: GI Progress Note for Dr. Chandler's Service- Jordy, PGY2 Patient seen and assessed at bedside in TCU. No acute events noted overnight. He reports that he is tolerating his diet well without complaints at this time. He does endorse continued loose BM's with reported episode of diarrhea yesterday. Patient denies any fevers, chills, chest pain, SOB, abdominal pain, N /V/C, hematochezia, melena, changes in urine output or any skin changes. Objective - Vital Signs/Intake and Output Vital Signs (last 24 hours): Temp Pulse Resp BP Pulse Ox 98.2 F 91 H 20 133/71 90 L 06/18/18 10:00 06/18/18 10:00 06/18/18 10:00 06/18/18 10:02 06/18/18 10:00 - Medications Medications: Current Medications Acetaminophen (Tylenol 325mg Tab) 650 mg PO Q6H PRN PRN Reason: Fever >100.4 F Albuterol/Ipratropium (Duoneb 3 Mg/0.5 Mg (3 Ml) Ud) 3 ml IH 0200,0800,1400, 2000 [facility] Last Admin: 06/18/18 08:40 Dose: 3 ml Amlodipine Besylate (Norvasc) 10 mg PO DAILY [facility] Last Admin: 06/18/18 10:02 Dose: 10 mg Aripiprazole (Abilify) 10 mg PO DAILY [facility] PRN Reason: Protocol Last Admin: 06/18/18 10:02 Dose: 10 mg Cholestyramine Resin (Questran) 2 gm PO BID [facility] Clonazepam (Klonopin) 0.5 mg PO DAILY [facility] PRN Reason: Protocol Last Admin: 06/18/18 10:05 Dose: 0.5 mg Enoxaparin Sodium (Lovenox) 40 mg SC 0600 [facility] PRN Reason: Protocol Last Admin: 06/18/18 06:00 Dose: 40 mg Escitalopram Oxalate (Lexapro) 20 mg PO DAILY [facility] Last Admin: 06/18/18 10:02 Dose: 20 mg Ferrous Gluconate (Fergon) 324 mg PO TID [facility] Last Admin: 06/18/18 10:02 Dose: 324 mg Potassium Chloride 40 meq/ (Dextrose) 1,020 mls @ 75 mls/hr IV .[id number] [facility] Last Admin: 06/18/18 04:23 Dose: 75 mls/hr Losartan Potassium (Cozaar) 100 mg PO DAILY [facility] Last Admin: 06/18/18 10:02 Dose: 100 mg Pantoprazole Sodium (Protonix Ec Tab) 40 mg PO 0600,1600 [facility] Last Admin: 06/18/18 06:00 Dose: 40 mg Potassium Chloride (Potassium Chloride Oral Soln) 40 meq PO BID [facility] Last Admin: 06/18/18 10:01 Dose: 40 meq Vitamin B Complex/Vit C/Folic Acid (Nephro-Luciano) 1 tab PO 0800 [facility] Last Admin: 06/18/18 07:53 Dose: 1 tab - Labs Labs: 06/18/18 06:00 06/18/18 10:36 - Constitutional Appears: Non-toxic, No Acute Distress - Eye Exam Eye Exam: EOMI - ENT Exam ENT Exam: Mucous Membranes Moist - Neck Exam Neck Exam: Full ROM - Respiratory Exam Respiratory Exam: NORMAL BREATHING PATTERN. absent: Accessory Muscle Use, Respiratory Distress - Cardiovascular Exam Cardiovascular Exam: REGULAR RHYTHM, +S1, +S2 - GI/Abdominal Exam GI & Abdominal Exam: Distended, Normal Bowel Sounds. absent: Bruit, Firm, Guarding, Rigid, Tenderness, Diminished Bowel Sounds, Hyperactive Bowel Sounds, Hypoactive Bowel Sounds, Mass, Organomegaly, Pulsatile Mass, Rebound - Rectal Exam Rectal Exam: Deferred - Neurological Exam Neurological Exam: Alert, Awake, Oriented x3 - Psychiatric Exam Psychiatric exam: Normal Affect, Normal Mood - Skin Skin Exam: Dry, Intact, Normal Color, Warm Assessment and Plan - Assessment and Plan (Free Text) Assessment: 73 year old male with a past medical history significant for depression and prostate cancer s/p prostatectomy who originally presented after complicated drain removal placed for appendicitis complicated by abscess and abdominal fluid collections. GI was consulted after he was found to have FOBT positive stool. #diarrhea #abnormal LFT's #heme occult positive stool Plan: -Antibiotics stopped by ID d/t diarrhea; All recommendations appreciated -C. Diff serology and stool culture negative -Started Questran half pack BID for diarrhea -[place], [place] Free and Lactose Restricted Diet with Ensure Enlive supplemention BID -Continue PPI -Further management per surgery GI Disposition: Patient would benefit from EGD/Colonoscopy for further evaluation of both heme occult positive stools and diarrhea. The decision as to whether this will be done prior to discharge or as an outpatient will be based on his clinical course while in the TCU. Patient seen and case discussed with attending, Dr. Chandler. <Dara Chandler V - Last Filed: 06/19/18 00:13> Objective - Vital Signs/Intake and Output Vital Signs (last 24 hours): Temp Pulse Resp BP Pulse Ox 98.5 F 77 20 116/65 92 L 06/18/18 16:00 06/18/18 16:00 06/18/18 16:00 06/18/18 16:00 06/18/18 16:00 Intake and Output: 06/18/18 06/19/18 18:59 06:59 Intake Total 360 Output Total 150 Balance 210 - Medications Medications: Current Medications Acetaminophen (Tylenol 325mg Tab) 650 mg PO Q6H PRN PRN Reason: Fever >100.4 F Albuterol/Ipratropium (Duoneb 3 Mg/0.5 Mg (3 Ml) Ud) 3 ml IH 0200,0800,1400, 2000 [facility] Last Admin: 06/18/18 20:17 Dose: 3 ml Amlodipine Besylate (Norvasc) 10 mg PO DAILY [facility] Last Admin: 06/18/18 10:02 Dose: 10 mg Aripiprazole (Abilify) 10 mg PO DAILY [facility] PRN Reason: Protocol Last Admin: 06/18/18 10:02 Dose: 10 mg Cholestyramine Resin (Questran) 2 gm PO BID [facility] Last Admin: 06/18/18 17:01 Dose: 2 gm Clonazepam (Klonopin) 0.5 mg PO DAILY [facility] PRN Reason: Protocol Last Admin: 06/18/18 10:05 Dose: 0.5 mg Enoxaparin Sodium (Lovenox) 40 mg SC 0600 [facility] PRN Reason: Protocol Last Admin: 06/18/18 06:00 Dose: 40 mg Escitalopram Oxalate (Lexapro) 20 mg PO DAILY [facility] Last Admin: 06/18/18 10:02 Dose: 20 mg Ferrous Gluconate (Fergon) 324 mg PO TID [facility] Last Admin: 06/18/18 17:01 Dose: 324 mg Potassium Chloride 40 meq/ (Dextrose) 1,020 mls @ 75 mls/hr IV .[id number] [facility] Last Admin: 06/18/18 18:12 Dose: 75 mls/hr Losartan Potassium (Cozaar) 100 mg PO DAILY [facility] Last Admin: 06/18/18 10:02 Dose: 100 mg Pantoprazole Sodium (Protonix Ec Tab) 40 mg PO 0600,1600 [facility] Last Admin: 06/18/18 17:00 Dose: 40 mg Potassium Chloride (Potassium Chloride Oral Soln) 40 meq PO BID [facility] Last Admin: 06/18/18 17:01 Dose: 40 meq Vitamin B Complex/Vit C/Folic Acid (Nephro-Luciano) 1 tab PO 0800 [facility] Last Admin: 06/18/18 07:53 Dose: 1 tab - Labs Labs: 06/18/18 06:00 06/18/18 10:36 Attending/Attestation - Attestation I have personally seen and examined this patient.: Yes I have fully participated in the care of the patient.: Yes I have reviewed all pertinent clinical information, including history, physical exam and plan: Yes Notes (Text): This is an addendum to GI progress report dictated by the GI Fellow.The patient was seen and examined earlier. Medical records, lab studies, imagings were reviewed. Last 24 hours events reviewed. Agreed with the above treatment plan as outlined in GI Fellow 's notes with the addition of the following Still complains of significant diarrhea Stool for C. difficile before was negative On examination abdomen softly distended We will start the patient on low-dose Questran Patient would benefit from EGD and colonoscopy Since the patient is in TCU will discuss with PCP and surgeon regarding the timing 06/19/18 00:12
--- NOTE | 2018-06-18 14:14 | CP.PCM.PN ---
Subjective - Date & Time of Evaluation Date of Evaluation: 06/18/18 Time of Evaluation: 14:14 - Subjective Subjective: Nephrology Consultation Note: Assessment: Stable Hypokalemia likely due to decreased oral intake and increased GI loss metabolic alkalosis perforated appendicitis with multiple loculated fluid collections in the pelvis Anemia of acute blood loss hx of CA prostate, depression elevated BP, no hx of HTN Plan supplement potassium as ordered IVF as d5NS with 40 meq @ 75 ml/hr to increase amount of daily K supplementation , can d/c IVF once oral intake better added iron and MVI for anemia BP control with meds as ordered. on losartan to 100 mg/day and norvasc 10 mg/day Dose meds/antibiotics for normal GFR. Glycemic control Further work up/management as per primary team, ID Thanks for allowing me to participate in care of your patient. Will follow patient with you. Please call if any Qs. had d/w team Dr Fred Vieyra Office: [phone] Chief Complaint; loose stool Reason for consult: hypokalemia HPI: Pt is a 73 year old male with hx of depression, CA prostate came initially with perforated appendicitis which was managed conservatively with IR guided drainage with catheter which got removed later and led to anemia/blood loss now s/p coiling of R superior gluteal artery also treated for LLL pneumonia , multiple loculated fluid collections in the pelvis being initially planned for IR intervention and or ex lap but now for conservative management found to have HTN with hypokalemia hence consulted renal pt denies nausea/vomitting. c/o daily loose stool and diarrhoea. reports decreased intake and poor appetite. no SOB or chest pain ROS: decreased appetite and oral intake. Cardiovascular: No chest pain. Pulmonary: No shortness of breath Gastrointestinal: no abdominal pain No nausea. No vomiting. has loose stool Genitourinary: No pain while urinating. Denies blood in urine. All other negative except as mentioned in HPI Physical Examination: General Appearance: comfortable, in no acute respiratory distress, co-operative . better appearing. Vitals reviewed and noted as below Head; Atraumatic, normocephalic ENT: no ulcers no thrush. Tongue is midline. Oropharynx: no rash or ulcers. EYES: Pupils are equal, round and reactive to light accommodation. Eye muscles and extraocular movement intact. Sclera is anicteric. Neck; supple no lymphadenopathy, no thyromegaly or bruit Lungs: Normal respiratory rate/effort. Breath sounds bilateral clear anteriorly Heart: Normal rate. s1s2 normal. No rub or gallop. Extremities: no edema. No varicose veins Neurological: Patient is alert, awake and oriented to person, place and time. No focal deficit. Strength bilateral appropriate and equal Skin: Warm and dry. Normal turgor. No rash. Palpitation: Normal elasticity for age Abdomen: Abdomen is soft/distended. Bowel sounds +. There is no abdominal tenderness, no guarding/rigidity no organomegaly Psych: limited insight and flat affect/mood MSK: no joint tenderness or swelling. Digits and nails normal, no deformity : kidney or bladder not palpable Labs/imaging reviewed. Past medical history, past surgical history, family history, social history, allergy reviewed and noted as below Family hx: no hx of CKD. Rest non-contributory imaging: normal adrenals and kidneys Mg 2.0 TTKG 4 shravan 1 renin 0.1 Objective - Vital Signs/Intake and Output Vital Signs (last 24 hours): Temp Pulse Resp BP Pulse Ox 98.2 F 91 H 20 133/71 90 L 06/18/18 10:00 06/18/18 10:00 06/18/18 10:00 06/18/18 10:02 06/18/18 10:00 - Medications Medications: Current Medications Acetaminophen (Tylenol 325mg Tab) 650 mg PO Q6H PRN PRN Reason: Fever >100.4 F Albuterol/Ipratropium (Duoneb 3 Mg/0.5 Mg (3 Ml) Ud) 3 ml IH 0200,0800,1400, 2000 [facility] OF [facility] Last Admin: 06/18/18 14:03 Dose: 3 ml Amlodipine Besylate (Norvasc) 10 mg PO DAILY [facility] Last Admin: 06/18/18 10:02 Dose: 10 mg Aripiprazole (Abilify) 10 mg PO DAILY [facility] PRN Reason: Protocol Last Admin: 06/18/18 10:02 Dose: 10 mg Cholestyramine Resin (Questran) 2 gm PO BID [facility] OF [facility] Clonazepam (Klonopin) 0.5 mg PO DAILY [facility] PRN Reason: Protocol Last Admin: 06/18/18 10:05 Dose: 0.5 mg Enoxaparin Sodium (Lovenox) 40 mg SC 0600 [facility] PRN Reason: Protocol Last Admin: 06/18/18 06:00 Dose: 40 mg Escitalopram Oxalate (Lexapro) 20 mg PO DAILY [facility] Last Admin: 06/18/18 10:02 Dose: 20 mg Ferrous Gluconate (Fergon) 324 mg PO TID [facility] OF [facility] Last Admin: 06/18/18 10:02 Dose: 324 mg Potassium Chloride 40 meq/ (Dextrose) 1,020 mls @ 75 mls/hr IV .[id number] [facility] Last Admin: 06/18/18 04:23 Dose: 75 mls/hr Losartan Potassium (Cozaar) 100 mg PO DAILY [facility] Last Admin: 06/18/18 10:02 Dose: 100 mg Pantoprazole Sodium (Protonix Ec Tab) 40 mg PO 0600,1600 [facility] Last Admin: 06/18/18 06:00 Dose: 40 mg Potassium Chloride (Potassium Chloride Oral Soln) 40 meq PO BID [facility] Last Admin: 06/18/18 10:01 Dose: 40 meq Vitamin B Complex/Vit C/Folic Acid (Nephro-Luciano) 1 tab PO 0800 [facility] Last Admin: 06/18/18 07:53 Dose: 1 tab - Labs Labs: 06/18/18 06:00 06/18/18 10:36
[2018-06-18] MEDS: Cholestyramine 4 gm/Pkt UD PO SCH (17:01)
--- NOTE | 2018-06-18 18:49 | PN ---
DATE: 06/18/2018 FOLLOWUP NOTE SUBJECTIVE: The patient was transferred to Transitional Care Unit. Psych consult was called for medication management. This designer writer is very familiar with the patient from the consultation services on the medical site. Please see initial consultation for more detailed information. The patient remembered this designer writer from the previous encounter. The patient reported that he feels better. The patient denied any thoughts of killing himself or others. The patient reported transient symptoms of depression. The patient does not want his medication to be adjusted or discontinued. Discussed the case with the patient's private psychiatrist, Dr. Degroot, who will be following on the patient as outpatient. As per Dr. Degroot, the patient has chronic depression. The patient had multiple stressors including his had brain tumor. The patient gave permission to talk to his , Lucero Chen, who is next to the patient. As per Lucero, the patient present at his baseline. She does not have any questions or concerns. This designer writer let the patient and his note that followup will be every other day or as needed. Verbalized understanding. Vital signs of the patient seems to be stable. Temperature 98.2, pulse is 91, blood pressure 133/71, respirations 26, oxygen saturation is 90. Medications reviewed. Tylenol, DuoNeb, Norvasc, Abilify 10 mg daily, Klonopin 0.5 mg daily, Lexapro 20 mg daily, Cozaar, vitamin B. Labs were reviewed, most recent was from today. No acute changes. Potassium is low. MENTAL STATUS EXAMINATION: The patient presented somewhat better, had effective reactivity today. Mood described as I feel okay. Affect was more reactive, mood congruent. Thought process seems to be concrete. The speech was underproductive. Thought content, the patient denied visual, auditory or tactile hallucinations. Denied paranoid ideation. The patient denied thoughts of harming himself or others. Denied intents or plan. Insight and judgment seems to be improving. Impulses are well controlled. IMPRESSION: As per history, treatment-resistant depression, rule out mood disorder due to general medical condition. Rule out adjustment disorder. PLAN: Medications confirmed. The patient should be continued on Lexapro as well as Abilify as well as Klonopin. Discussed with the patient's psychiatrist, Dr. Degroot as well as his . We will follow up and advise accordingly every 48 hours or as needed. No acute issues. The patient has followup appointment with outpatient psychiatrist. Thank you very much for letting me participate in the care of your patient. If you have any questions, give me a call back. Alesha Buck MD
--- NOTE | 2018-06-18 18:59 | CP.PCM.PN ---
Subjective - Date & Time of Evaluation Date of Evaluation: 06/18/18 Time of Evaluation: 10:45 - Subjective Subjective: No fevers, no abdominal pain, still with loose stools. Objective - Vital Signs/Intake and Output Vital Signs (last 24 hours): Temp Pulse Resp BP Pulse Ox 98 F 79 18 130/68 97 06/16/18 16:00 06/16/18 16:00 06/16/18 16:00 06/16/18 16:00 06/16/18 16:00 Intake and Output: 06/17/18 06/17/18 06:59 18:59 Intake Total 1050 Balance 1050 - Medications Medications: Current Medications Acetaminophen (Tylenol 325mg Tab) 650 mg PO Q6H PRN PRN Reason: Fever >100.4 F Albuterol/Ipratropium (Duoneb 3 Mg/0.5 Mg (3 Ml) Ud) 3 ml IH 0200,0800,1400, 2000 [facility] Last Admin: 06/17/18 07:14 Dose: 3 ml Amlodipine Besylate (Norvasc) 10 mg PO DAILY [facility] Last Admin: 06/16/18 09:53 Dose: 10 mg Aripiprazole (Abilify) 10 mg PO DAILY [facility] PRN Reason: Protocol Last Admin: 06/16/18 09:52 Dose: 10 mg Clonazepam (Klonopin) 0.5 mg PO DAILY [facility] PRN Reason: Protocol Last Admin: 06/16/18 09:56 Dose: 0.5 mg Enoxaparin Sodium (Lovenox) 40 mg SC 0600 [facility] PRN Reason: Protocol Last Admin: 06/17/18 06:43 Dose: 40 mg Escitalopram Oxalate (Lexapro) 20 mg PO DAILY [facility] Last Admin: 06/16/18 09:52 Dose: 20 mg Ferrous Gluconate (Fergon) 324 mg PO TID [facility] Last Admin: 06/16/18 17:49 Dose: 324 mg Potassium Chloride 40 meq/ (Dextrose) 1,020 mls @ 75 mls/hr IV .[id number] [facility] Last Admin: 06/17/18 01:18 Dose: Not Given Losartan Potassium (Cozaar) 100 mg PO DAILY [facility] Last Admin: 06/16/18 09:52 Dose: 100 mg Pantoprazole Sodium (Protonix Ec Tab) 40 mg PO 0600,1600 [facility] Last Admin: 06/17/18 06:44 Dose: 40 mg Potassium Chloride (Potassium Chloride Oral Soln) 40 meq PO BID [facility] Last Admin: 06/16/18 17:49 Dose: 40 meq Vitamin B Complex/Vit C/Folic Acid (Nephro-Luciano) 1 tab PO 0800 [facility] Last Admin: 06/17/18 09:00 Dose: 1 tab - Labs Labs: 06/17/18 05:00 06/17/18 05:00 - Constitutional Appears: Chronically Ill - Head Exam Head Exam: NORMAL INSPECTION - Neck Exam Neck Exam: absent: Meningismus - Respiratory Exam Respiratory Exam: Decreased Breath Sounds - Cardiovascular Exam Cardiovascular Exam: +S1, +S2 - GI/Abdominal Exam GI & Abdominal Exam: Soft. absent: Tenderness Assessment and Plan - Assessment and Plan (Free Text) Plan: Assessment intra-abdominal abscesses in this patient S/P acute appendicitis with appendiceal abscess S/P IR-guided drainage; with fluid collections, abscesses or hematoma S/P cholecystectomy S/P prostatectomy history of depression history of pneumonia Plan continue to monitor off antibiotics - as discussed with Surgery, their thought is that the fluid collections may be hematomas - since patient is having LBM and may be antibiotic-associated, will continue to monitor off antibiotics for now, monitor BM's, check stool for C. diff. again and trend WBC count surgery will also continue to monitor discussed with patient and the patient understands
[2018-06-19] MEDS: Albuterol-Ipratrop 3 mg / 0.5 (3 ml) UD IH SCH ×4 (01:40→19:41)
[2018-06-19] MEDS: Enoxaparin 40 mg Syringe SC SCH (06:16)
[2018-06-19] MEDS: Pantoprazole 40 mg EC Tab PO SCH ×2 (07:19→16:34)
[2018-06-19] MEDS: Multivitamin Vitamin B Complex (Nephro-Vite) Tab PO SCH (08:11)
--- NOTE | 2018-06-19 08:19 | CP.PCM.PN ---
Subjective - Date & Time of Evaluation Date of Evaluation: 06/19/18 Time of Evaluation: 07:00 - Subjective Subjective: Micky Barrera DO, PGY-1 Surgery Progress Note for Dr. Madden Patient was seen and examined at bedside with surgery team. He reports feeling better this AM and has been working with PT to ambulate regularly. He is agreeable to receiving CT abdomen today. Objective - Vital Signs/Intake and Output Vital Signs (last 24 hours): Temp Pulse Resp BP Pulse Ox 98.5 F 77 20 116/65 92 L 06/18/18 16:00 06/18/18 16:00 06/18/18 16:00 06/18/18 16:00 06/18/18 16:00 Intake and Output: 06/19/18 06/19/18 06:59 18:59 Intake Total 360 Output Total 150 Balance 210 - Medications Medications: Current Medications Acetaminophen (Tylenol 325mg Tab) 650 mg PO Q6H PRN PRN Reason: Fever >100.4 F Albuterol/Ipratropium (Duoneb 3 Mg/0.5 Mg (3 Ml) Ud) 3 ml IH 0200,0800,1400, 2000 [facility] Last Admin: 06/19/18 07:06 Dose: 3 ml Amlodipine Besylate (Norvasc) 10 mg PO DAILY [facility] Last Admin: 06/18/18 10:02 Dose: 10 mg Aripiprazole (Abilify) 10 mg PO DAILY [facility] PRN Reason: Protocol Last Admin: 06/18/18 10:02 Dose: 10 mg Cholestyramine Resin (Questran) 2 gm PO BID [facility] Last Admin: 06/18/18 17:01 Dose: 2 gm Clonazepam (Klonopin) 0.5 mg PO DAILY [facility] PRN Reason: Protocol Last Admin: 06/18/18 10:05 Dose: 0.5 mg Enoxaparin Sodium (Lovenox) 40 mg SC 0600 [facility] PRN Reason: Protocol Last Admin: 06/19/18 06:16 Dose: 40 mg Escitalopram Oxalate (Lexapro) 20 mg PO DAILY [facility] Last Admin: 06/18/18 10:02 Dose: 20 mg Ferrous Gluconate (Fergon) 324 mg PO TID [facility] Last Admin: 06/18/18 17:01 Dose: 324 mg Potassium Chloride 40 meq/ (Dextrose) 1,020 mls @ 75 mls/hr IV .[id number] [facility] Last Admin: 06/19/18 06:42 Dose: 75 mls/hr Losartan Potassium (Cozaar) 100 mg PO DAILY [facility] Last Admin: 06/18/18 10:02 Dose: 100 mg Pantoprazole Sodium (Protonix Ec Tab) 40 mg PO 0600,1600 [facility] Last Admin: 06/19/18 07:19 Dose: 40 mg Potassium Chloride (Potassium Chloride Oral Soln) 40 meq PO BID [facility] Last Admin: 06/18/18 17:01 Dose: 40 meq Vitamin B Complex/Vit C/Folic Acid (Nephro-Luciano) 1 tab PO 0800 [facility] Last Admin: 06/19/18 08:11 Dose: 1 tab - Labs Labs: 06/18/18 06:00 06/18/18 10:36 - Constitutional Appears: Non-toxic, No Acute Distress - Head Exam Head Exam: ATRAUMATIC, NORMAL INSPECTION - Eye Exam Eye Exam: Normal appearance - ENT Exam ENT Exam: Mucous Membranes Moist - Neck Exam Neck Exam: Full ROM, Normal Inspection - Respiratory Exam Respiratory Exam: NORMAL BREATHING PATTERN. absent: Accessory Muscle Use, Respiratory Distress - Cardiovascular Exam Cardiovascular Exam: +S1, +S2 - GI/Abdominal Exam GI & Abdominal Exam: Distended (improved from prior exams). absent: Guarding, Tenderness, Rebound - Extremities Exam Extremities Exam: Normal Inspection - Neurological Exam Neurological Exam: Alert, Awake, Oriented x3 - Psychiatric Exam Psychiatric exam: Normal Affect, Normal Mood Additional comments: Mood appears to be significantly improved from prior exams - Skin Skin Exam: Dry, Intact, Normal Color, Warm Assessment and Plan - Assessment and Plan (Free Text) Assessment: 73 year old male s/p coiling of R superior gluteal artery and s/p removal of IR drain placed for perforated appendicitis. Plan: -CT abdomen/pelvis with IV and PO contrast today -Suspect intra-abdominal fluid collections are hematomas -Monitor renal function after contrast -K level stable today, continue to monitor -Nephrology, GI, ID following, recs appreciated Case and plan discussed with Dr. Chano Barrera, DO IM Resident PGY-1
--- NOTE | 2018-06-19 08:21 | CP.PCM.PN ---
<Shalom Mendez - Last Filed: 06/19/18 11:06> Subjective - Date & Time of Evaluation Date of Evaluation: 06/19/18 Time of Evaluation: 08:20 - Subjective Subjective: GI Progress Note for Dr. Chandler's Service- Jordy, PGY2 Patient seen and assessed at bedside in TCU. No acute events noted overnight. He reports that he is tolerating his diet well. Patient had one loose stool overnight. Patient denies any fevers, chills, chest pain, SOB, abdominal pain, N /V/C, hematochezia, melena, changes in urine output or any skin changes. Objective - Vital Signs/Intake and Output Vital Signs (last 24 hours): Temp Pulse Resp BP Pulse Ox 98.5 F 77 20 116/65 92 L 06/18/18 16:00 06/18/18 16:00 06/18/18 16:00 06/18/18 16:00 06/18/18 16:00 Intake and Output: 06/19/18 06/19/18 06:59 18:59 Intake Total 360 Output Total 150 Balance 210 - Medications Medications: Current Medications Acetaminophen (Tylenol 325mg Tab) 650 mg PO Q6H PRN PRN Reason: Fever >100.4 F Albuterol/Ipratropium (Duoneb 3 Mg/0.5 Mg (3 Ml) Ud) 3 ml IH 0200,0800,1400, 2000 [facility] Last Admin: 06/19/18 07:06 Dose: 3 ml Amlodipine Besylate (Norvasc) 10 mg PO DAILY [facility] Last Admin: 06/18/18 10:02 Dose: 10 mg Aripiprazole (Abilify) 10 mg PO DAILY [facility] PRN Reason: Protocol Last Admin: 06/18/18 10:02 Dose: 10 mg Cholestyramine Resin (Questran) 2 gm PO BID [facility] Last Admin: 06/18/18 17:01 Dose: 2 gm Clonazepam (Klonopin) 0.5 mg PO DAILY [facility] PRN Reason: Protocol Last Admin: 06/18/18 10:05 Dose: 0.5 mg Enoxaparin Sodium (Lovenox) 40 mg SC 0600 [facility] PRN Reason: Protocol Last Admin: 06/19/18 06:16 Dose: 40 mg Escitalopram Oxalate (Lexapro) 20 mg PO DAILY [facility] Last Admin: 06/18/18 10:02 Dose: 20 mg Ferrous Gluconate (Fergon) 324 mg PO TID [facility] Last Admin: 06/18/18 17:01 Dose: 324 mg Potassium Chloride 40 meq/ (Dextrose) 1,020 mls @ 75 mls/hr IV .[id number] [facility] Last Admin: 06/19/18 06:42 Dose: 75 mls/hr Losartan Potassium (Cozaar) 100 mg PO DAILY [facility] Last Admin: 06/18/18 10:02 Dose: 100 mg Pantoprazole Sodium (Protonix Ec Tab) 40 mg PO 0600,1600 [facility] Last Admin: 06/19/18 07:19 Dose: 40 mg Potassium Chloride (Potassium Chloride Oral Soln) 40 meq PO BID [facility] Last Admin: 06/18/18 17:01 Dose: 40 meq Vitamin B Complex/Vit C/Folic Acid (Nephro-Luciano) 1 tab PO 0800 [facility] Last Admin: 06/19/18 08:11 Dose: 1 tab - Labs Labs: 06/18/18 06:00 06/18/18 10:36 - Constitutional Appears: Non-toxic, No Acute Distress - Head Exam Head Exam: ATRAUMATIC, NORMOCEPHALIC - Eye Exam Eye Exam: EOMI - ENT Exam ENT Exam: Mucous Membranes Moist - Neck Exam Neck Exam: Full ROM - Respiratory Exam Respiratory Exam: NORMAL BREATHING PATTERN. absent: Accessory Muscle Use, Respiratory Distress - Cardiovascular Exam Cardiovascular Exam: RRR, +S1, +S2 - GI/Abdominal Exam GI & Abdominal Exam: Distended (Minimal; Interval improvement noted from yesterday's exam), Soft, Normal Bowel Sounds. absent: Bruit, Firm, Guarding, Rigid, Tenderness, Diminished Bowel Sounds, Hernia, Hyperactive Bowel Sounds, Hypoactive Bowel Sounds, Mass, Organomegaly, Pulsatile Mass, Rebound - Rectal Exam Rectal Exam: Deferred - Extremities Exam Extremities Exam: absent: Calf Tenderness, Pedal Edema - Neurological Exam Neurological Exam: Alert, Awake, Oriented x3 - Psychiatric Exam Psychiatric exam: Normal Affect, Normal Mood - Skin Skin Exam: Dry, Intact, Normal Color, Warm Assessment and Plan - Assessment and Plan (Free Text) Assessment: 73 year old male with a past medical history significant for depression and prostate cancer s/p prostatectomy who originally presented after complicated drain removal placed for appendicitis complicated by abscess and abdominal fluid collections. GI was consulted after he was found to have FOBT positive stool. #diarrhea #abnormal LFT's #heme occult positive stool Plan: -Patient to have CT Abdomen/Pelvis done today -C. Diff serology and stool culture negative; Repeat C. Diff serology pending -Continue Questran half pack BID for diarrhea -Home, [place] Free and Lactose Restricted Diet with Ensure Enlive supplemention BID -Continue PPI GI Disposition: Patient would benefit from EGD/Colonoscopy for further evaluation of both heme occult positive stools and diarrhea. The decision as to whether this will be done prior to discharge or as an outpatient will be based on his clinical course while in the TCU. We will continue to discuss this with patients PMD. Patient seen and case discussed with attending, Dr. Chandler. <Dara Chandler V - Last Filed: 06/20/18 00:52> Objective - Vital Signs/Intake and Output Vital Signs (last 24 hours): Temp Pulse Resp BP Pulse Ox 98.2 F 79 20 134/76 95 06/19/18 16:00 06/19/18 16:00 06/19/18 16:00 06/19/18 16:00 06/19/18 16:00 Intake and Output: 06/19/18 06/20/18 18:59 06:59 Intake Total 380 Output Total 450 Balance -70 - Medications Medications: Current Medications Acetaminophen (Tylenol 325mg Tab) 650 mg PO Q6H PRN PRN Reason: Fever >100.4 F Albuterol/Ipratropium (Duoneb 3 Mg/0.5 Mg (3 Ml) Ud) 3 ml IH 0200,0800,1400, 2000 [facility] Last Admin: 06/19/18 19:41 Dose: 3 ml Amlodipine Besylate (Norvasc) 10 mg PO DAILY [facility] Last Admin: 06/19/18 11:03 Dose: 10 mg Aripiprazole (Abilify) 10 mg PO DAILY [facility] PRN Reason: Protocol Last Admin: 06/19/18 10:23 Dose: 10 mg Cholestyramine Resin (Questran) 2 gm PO BID [facility] Last Admin: 06/19/18 17:05 Dose: 2 gm Clonazepam (Klonopin) 0.5 mg PO DAILY [facility] PRN Reason: Protocol Last Admin: 06/19/18 10:24 Dose: 0.5 mg Enoxaparin Sodium (Lovenox) 40 mg SC 0600 [facility] PRN Reason: Protocol Last Admin: 06/19/18 06:16 Dose: 40 mg Escitalopram Oxalate (Lexapro) 20 mg PO DAILY [facility] Last Admin: 06/19/18 10:25 Dose: 20 mg Ferrous Gluconate (Fergon) 324 mg PO TID [facility] Last Admin: 06/19/18 17:05 Dose: 324 mg Losartan Potassium (Cozaar) 100 mg PO DAILY [facility] Last Admin: 06/19/18 10:24 Dose: 100 mg Pantoprazole Sodium (Protonix Ec Tab) 40 mg PO 0600,1600 [facility] Last Admin: 06/19/18 16:34 Dose: 40 mg Potassium Chloride (Potassium Chloride Oral Soln) 40 meq PO BID [facility] Last Admin: 06/19/18 17:05 Dose: 40 meq Vitamin B Complex/Vit C/Folic Acid (Nephro-Luciano) 1 tab PO 0800 [facility] Last Admin: 06/19/18 08:11 Dose: 1 tab - Labs Labs: 06/18/18 06:00 06/19/18 09:20 Attending/Attestation - Attestation I have personally seen and examined this patient.: Yes I have fully participated in the care of the patient.: Yes I have reviewed all pertinent clinical information, including history, physical exam and plan: Yes Notes (Text): This is an addendum to GI followup report dictated by the Cook Box Filler. The patient was seen and evaluated earlier. Medical records, lab studies, imagings were reviewed. Last 24 hours events reviewed. Agreed with the above treatment plan as outlined in Cook Box Filler 's notes with the addition of the following Continue Questran Follow-up repeat C.ficile Endoscopy to further evaluate anemia at the time of discharge from [facility] 06/20/18 00:51
[2018-06-19 09:42] LABS: BLOOD UREA NITROGEN 8 mg/dL (7-21); CALCIUM 8.3 mg/dL (8.4-10.5); GFR NON-AFRICAN AMERICAN > 60
--- NOTE | 2018-06-19 10:57 | CP.PCM.PN ---
Subjective - Date & Time of Evaluation Date of Evaluation: 06/19/18 Time of Evaluation: 10:57 - Subjective Subjective: Nephrology Consultation Note: Assessment: Stable Hypokalemia likely due to decreased oral intake and increased GI loss metabolic alkalosis perforated appendicitis with multiple loculated fluid collections in the pelvis Anemia of acute blood loss hx of CA prostate, depression elevated BP, no hx of HTN Plan supplement potassium as ordered IVF as d5NS with 40 meq @ 75 ml/hr to increase amount of daily K supplementation , can d/c IVF once oral intake better added iron and MVI for anemia BP control with meds as ordered. on losartan to 100 mg/day and norvasc 10 mg/day Dose meds/antibiotics for normal GFR. Glycemic control Further work up/management as per primary team, ID Thanks for allowing me to participate in care of your patient. Will follow patient with you. Please call if any Qs. had d/w team Dr Fred Vieyra Office: [phone] Chief Complaint; loose stool Reason for consult: hypokalemia HPI: Pt is a 73 year old male with hx of depression, CA prostate came initially with perforated appendicitis which was managed conservatively with IR guided drainage with catheter which got removed later and led to anemia/blood loss now s/p coiling of R superior gluteal artery also treated for LLL pneumonia , multiple loculated fluid collections in the pelvis being initially planned for IR intervention and or ex lap but now for conservative management found to have HTN with hypokalemia hence consulted renal pt denies nausea/vomitting. c/o daily loose stool and diarrhoea. reports decreased intake and poor appetite. no SOB or chest pain ROS: decreased appetite and oral intake. Cardiovascular: No chest pain. Pulmonary: No shortness of breath Gastrointestinal: no abdominal pain No nausea. No vomiting. has loose stool Genitourinary: No pain while urinating. Denies blood in urine. All other negative except as mentioned in HPI Physical Examination: General Appearance: comfortable, in no acute respiratory distress, co-operative . ill appearing. Vitals reviewed and noted as below Head; Atraumatic, normocephalic ENT: no ulcers no thrush. Tongue is midline. Oropharynx: no rash or ulcers. EYES: Pupils are equal, round and reactive to light accommodation. Eye muscles and extraocular movement intact. Sclera is anicteric. Neck; supple no lymphadenopathy, no thyromegaly or bruit Lungs: Normal respiratory rate/effort. Breath sounds bilateral clear anteriorly Heart: Normal rate. s1s2 normal. No rub or gallop. Extremities: no edema. No varicose veins Neurological: Patient is alert, awake and oriented to person, place and time. No focal deficit. Strength bilateral appropriate and equal Skin: Warm and dry. Normal turgor. No rash. Palpitation: Normal elasticity for age Abdomen: Abdomen is soft/distended. Bowel sounds +. There is no abdominal tenderness, no guarding/rigidity no organomegaly Psych: limited insight and flat affect/mood MSK: no joint tenderness or swelling. Digits and nails normal, no deformity : kidney or bladder not palpable Labs/imaging reviewed. Past medical history, past surgical history, family history, social history, allergy reviewed and noted as below Family hx: no hx of CKD. Rest non-contributory imaging: normal adrenals and kidneys Mg 2.0 TTKG 4 shravan 1 renin 0.1 Objective - Vital Signs/Intake and Output Vital Signs (last 24 hours): Temp Pulse Resp BP Pulse Ox 98.5 F 77 20 116/65 92 L 06/18/18 16:00 06/18/18 16:00 06/18/18 16:00 06/18/18 16:00 06/18/18 16:00 Intake and Output: 06/19/18 06/19/18 06:59 18:59 Intake Total 360 Output Total 150 Balance 210 - Medications Medications: Current Medications Acetaminophen (Tylenol 325mg Tab) 650 mg PO Q6H PRN PRN Reason: Fever >100.4 F Albuterol/Ipratropium (Duoneb 3 Mg/0.5 Mg (3 Ml) Ud) 3 ml IH 0200,0800,1400, 2000 [facility] Last Admin: 06/19/18 07:06 Dose: 3 ml Amlodipine Besylate (Norvasc) 10 mg PO DAILY [facility] Last Admin: 06/18/18 10:02 Dose: 10 mg Aripiprazole (Abilify) 10 mg PO DAILY [facility] PRN Reason: Protocol Last Admin: 06/18/18 10:02 Dose: 10 mg Cholestyramine Resin (Questran) 2 gm PO BID [facility] Last Admin: 06/18/18 17:01 Dose: 2 gm Clonazepam (Klonopin) 0.5 mg PO DAILY [facility] PRN Reason: Protocol Last Admin: 06/18/18 10:05 Dose: 0.5 mg Enoxaparin Sodium (Lovenox) 40 mg SC 0600 [facility] PRN Reason: Protocol Last Admin: 06/19/18 06:16 Dose: 40 mg Escitalopram Oxalate (Lexapro) 20 mg PO DAILY [facility] Last Admin: 06/18/18 10:02 Dose: 20 mg Ferrous Gluconate (Fergon) 324 mg PO TID [facility] Last Admin: 06/18/18 17:01 Dose: 324 mg Potassium Chloride 40 meq/ (Dextrose) 1,020 mls @ 75 mls/hr IV .[id number] [facility] Last Admin: 06/19/18 06:42 Dose: 75 mls/hr Losartan Potassium (Cozaar) 100 mg PO DAILY [facility] Last Admin: 06/18/18 10:02 Dose: 100 mg Pantoprazole Sodium (Protonix Ec Tab) 40 mg PO 0600,1600 [facility] Last Admin: 06/19/18 07:19 Dose: 40 mg Potassium Chloride (Potassium Chloride Oral Soln) 40 meq PO BID [facility] Last Admin: 06/18/18 17:01 Dose: 40 meq Vitamin B Complex/Vit C/Folic Acid (Nephro-Luciano) 1 tab PO 0800 [facility] Last Admin: 06/19/18 08:11 Dose: 1 tab - Labs Labs: 06/18/18 06:00 06/19/18 09:20
[2018-06-19] MEDS: Potassium Chloride 40 mEq/30 ml LIQ UD PO SCH ×2 (11:03→17:05)
[2018-06-19] MEDS: Cholestyramine 4 gm/Pkt UD PO SCH ×2 (11:03→17:05)
--- NOTE | 2018-06-19 13:19 | PN ---
DATE: 06/19/2018 Eddi Chen is seen on the floor. He is still distended but his abdomen is soft, nontender. He is having diarrhea, but less so. CAT scan was ordered to follow these abscesses or collections in the pelvis. I do not think they are abscesses, but we will see. He is walking a little bit better but still has ways to go for independence. Gunner Madden MD
[2018-06-20] MEDS: Albuterol-Ipratrop 3 mg / 0.5 (3 ml) UD IH SCH ×4 (01:38→21:34)
[2018-06-20] MEDS: Enoxaparin 40 mg Syringe SC SCH (05:33)
[2018-06-20] MEDS: Pantoprazole 40 mg EC Tab PO SCH ×2 (05:33→16:03)
[2018-06-20 07:07] LABS: BLOOD UREA NITROGEN 7 mg/dL (7-21); CALCIUM 8.5 mg/dL (8.4-10.5); GFR NON-AFRICAN AMERICAN > 60
[2018-06-20] MEDS: Potassium Chloride 40 mEq/30 ml LIQ UD PO SCH ×2 (07:47→09:44)
[2018-06-20] MEDS: Multivitamin Vitamin B Complex (Nephro-Vite) Tab PO SCH (07:47)
--- NOTE | 2018-06-20 08:14 | PN ---
DATE: 06/19/2018 PHYSICAL EXAMINATION: VITAL SIGNS: Temperature is 98, blood pressure is 135/70, respiratory rate of 20. HEENT: Unremarkable. NECK: Supple. LUNGS: Have decreased breath sounds. HEART: Normal S1 and S2. ABDOMEN: Soft, nontender. LABORATORY DATA: Reveals a white count of 10,000, hemoglobin of 10, platelets of 388. Chemistries are noted. Microbiology is noted. ASSESSMENT AND PLAN: This is a 73-year-old male who was seen earlier this morning in room 317 with intra-abdominal abscess in a patient status post appendicitis, appendiceal abscess, status post IR-guided drainage with fluid collection, abscess, and hematoma, status post cholecystectomy. Currently, now off of antibiotics, afebrile, and the Surgery that the fluid collection may be hematomas and the patient is having large bowel movements and review of orders reveals the patient to be off of antibiotics. We will follow with you. Jose Melendrez MD
[2018-06-20] MEDS: Cholestyramine 4 gm/Pkt UD PO SCH ×2 (09:44→17:56)
--- NOTE | 2018-06-20 12:26 | CP.PCM.PN ---
Subjective - Date & Time of Evaluation Date of Evaluation: 06/20/18 Time of Evaluation: 11:30 - Subjective Subjective: Micky Barrera DO, PGY-1 Surgery Progress Note for Dr. Madden Patient was seen and examined at bedside with surgery team. He appears more depressed today and has flat affect. Per OT/PT, he has been having difficulty and does not seem motivated. Objective - Vital Signs/Intake and Output Vital Signs (last 24 hours): Temp Pulse Resp BP Pulse Ox 98.8 F 83 20 147/73 96 06/20/18 06:00 06/20/18 06:00 06/20/18 06:00 06/20/18 09:44 06/20/18 06:00 Intake and Output: 06/20/18 06/20/18 06:59 18:59 Intake Total 380 Output Total 450 Balance -70 - Medications Medications: Current Medications Acetaminophen (Tylenol 325mg Tab) 650 mg PO Q6H PRN PRN Reason: Fever >100.4 F Albuterol/Ipratropium (Duoneb 3 Mg/0.5 Mg (3 Ml) Ud) 3 ml IH 0200,0800,1400, 2000 [facility] Last Admin: 06/20/18 07:16 Dose: 3 ml Amlodipine Besylate (Norvasc) 10 mg PO DAILY [facility] Last Admin: 06/20/18 09:44 Dose: 10 mg Aripiprazole (Abilify) 10 mg PO DAILY [facility] PRN Reason: Protocol Last Admin: 06/20/18 09:42 Dose: 10 mg Cholestyramine Resin (Questran) 2 gm PO BID [facility] Last Admin: 06/20/18 09:44 Dose: 2 gm Clonazepam (Klonopin) 0.5 mg PO DAILY [facility] PRN Reason: Protocol Last Admin: 06/20/18 09:48 Dose: 0.5 mg Enoxaparin Sodium (Lovenox) 40 mg SC 0600 [facility] PRN Reason: Protocol Last Admin: 06/20/18 05:33 Dose: 40 mg Escitalopram Oxalate (Lexapro) 20 mg PO DAILY [facility] Last Admin: 06/20/18 09:44 Dose: 20 mg Ferrous Gluconate (Fergon) 324 mg PO TID [facility] Last Admin: 06/20/18 09:43 Dose: 324 mg Losartan Potassium (Cozaar) 100 mg PO DAILY [facility] Last Admin: 06/20/18 09:43 Dose: 100 mg Pantoprazole Sodium (Protonix Ec Tab) 40 mg PO 0600,1600 [facility] Last Admin: 06/20/18 05:33 Dose: 40 mg Potassium Chloride (Potassium Chloride Oral Soln) 40 meq PO BID [facility] Last Admin: 06/20/18 09:44 Dose: Not Given Vitamin B Complex/Vit C/Folic Acid (Nephro-Luciano) 1 tab PO 0800 [facility] Last Admin: 06/20/18 07:47 Dose: 1 tab - Labs Labs: 06/18/18 06:00 06/20/18 06:30 - Constitutional Appears: Well, Non-toxic, No Acute Distress - Head Exam Head Exam: ATRAUMATIC, NORMAL INSPECTION - Eye Exam Eye Exam: Normal appearance - ENT Exam ENT Exam: Mucous Membranes Moist - Neck Exam Neck Exam: Full ROM, Normal Inspection - Respiratory Exam Respiratory Exam: absent: Accessory Muscle Use, Respiratory Distress - Cardiovascular Exam Cardiovascular Exam: +S1, +S2 - GI/Abdominal Exam GI & Abdominal Exam: Distended, Soft. absent: Guarding, Tenderness, Rebound - Neurological Exam Neurological Exam: Awake, Oriented x3 - Psychiatric Exam Psychiatric exam: Depressed, Flat Affect - Skin Skin Exam: Dry, Intact, Normal Color, Warm Assessment and Plan - Assessment and Plan (Free Text) Assessment: 73 year old male s/p coiling of R superior gluteal artery and s/p removal of IR drain placed for perforated appendicitis. Plan: -CT abdomen/pelvis with IV and PO showed fluid collections largely unchanged -Suspect intra-abdominal fluid collections are hematomas -Renal function stable s/p IV contrast -K level stable again today, continue to monitor and replete -Patient's mood worse today, reports he has lack of motivation -Will discuss need for medication adjustments with Dr. Buck -Psych, ID, GI, nephro following recs appreciated Case and plan discussed with Dr. Chano Barrera, DO IM Resident PGY-1
--- NOTE | 2018-06-20 14:12 | CP.PCM.PN ---
Subjective - Date & Time of Evaluation Date of Evaluation: 06/20/18 Time of Evaluation: 14:12 - Subjective Subjective: Nephrology Consultation Note: Assessment: Stable Hypokalemia likely due to decreased oral intake and increased GI loss metabolic alkalosis perforated appendicitis with multiple loculated fluid collections in the pelvis Anemia of acute blood loss hx of CA prostate, depression elevated BP, no hx of HTN Plan supplement potassium as ordered continue with iron and MVI for anemia BP control with meds as ordered. on losartan to 100 mg/day and norvasc 10 mg/day Dose meds/antibiotics for normal GFR. Glycemic control Further work up/management as per primary team, ID Thanks for allowing me to participate in care of your patient. Will follow patient with you. Please call if any Qs. had d/w team Dr Fred Vieyra Office: [phone] Chief Complaint; loose stool Reason for consult: hypokalemia HPI: Pt is a 73 year old male with hx of depression, CA prostate came initially with perforated appendicitis which was managed conservatively with IR guided drainage with catheter which got removed later and led to anemia/blood loss now s/p coiling of R superior gluteal artery also treated for LLL pneumonia , multiple loculated fluid collections in the pelvis being initially planned for IR intervention and or ex lap but now for conservative management found to have HTN with hypokalemia hence consulted renal pt denies nausea/vomitting. c/o daily loose stool and diarrhoea. reports decreased intake and poor appetite. no SOB or chest pain ROS: improved appetite and oral intake. Cardiovascular: No chest pain. Pulmonary: No shortness of breath Gastrointestinal: no abdominal pain No nausea. No vomiting. has loose stool Genitourinary: No pain while urinating. Denies blood in urine. All other negative except as mentioned in HPI Physical Examination: General Appearance: comfortable, in no acute respiratory distress, co-operative Vitals reviewed and noted as below Head; Atraumatic, normocephalic ENT: no ulcers no thrush. Tongue is midline. Oropharynx: no rash or ulcers. EYES: Pupils are equal, round and reactive to light accommodation. Eye muscles and extraocular movement intact. Sclera is anicteric. Neck; supple no lymphadenopathy, no thyromegaly or bruit Lungs: Normal respiratory rate/effort. Breath sounds bilateral clear anteriorly Heart: Normal rate. s1s2 normal. No rub or gallop. Extremities: no edema. No varicose veins Neurological: Patient is alert, awake and oriented to person, place and time. No focal deficit. Strength bilateral appropriate and equal Skin: Warm and dry. Normal turgor. No rash. Palpitation: Normal elasticity for age Abdomen: Abdomen is soft/distended. Bowel sounds +. There is no abdominal tenderness, no guarding/rigidity no organomegaly Psych: limited insight and flat affect/mood MSK: no joint tenderness or swelling. Digits and nails normal, no deformity : kidney or bladder not palpable Labs/imaging reviewed. Past medical history, past surgical history, family history, social history, allergy reviewed and noted as below Family hx: no hx of CKD. Rest non-contributory imaging: normal adrenals and kidneys Mg 2.0 TTKG 4 shravan 1 renin 0.1 Objective - Vital Signs/Intake and Output Vital Signs (last 24 hours): Temp Pulse Resp BP Pulse Ox 98.8 F 83 20 147/73 96 06/20/18 06:00 06/20/18 06:00 06/20/18 06:00 06/20/18 09:44 06/20/18 06:00 Intake and Output: 06/20/18 06/20/18 06:59 18:59 Intake Total 380 Output Total 450 Balance -70 - Medications Medications: Current Medications Acetaminophen (Tylenol 325mg Tab) 650 mg PO Q6H PRN PRN Reason: Fever >100.4 F Albuterol/Ipratropium (Duoneb 3 Mg/0.5 Mg (3 Ml) Ud) 3 ml IH 0200,0800,1400, 2000 [facility] Last Admin: 06/20/18 13:55 Dose: 3 ml Amlodipine Besylate (Norvasc) 10 mg PO DAILY [facility] Last Admin: 06/20/18 09:44 Dose: 10 mg Aripiprazole (Abilify) 10 mg PO DAILY [facility] PRN Reason: Protocol Last Admin: 06/20/18 09:42 Dose: 10 mg Cholestyramine Resin (Questran) 2 gm PO BID [facility] Last Admin: 06/20/18 09:44 Dose: 2 gm Clonazepam (Klonopin) 0.5 mg PO DAILY [facility] PRN Reason: Protocol Last Admin: 06/20/18 09:48 Dose: 0.5 mg Enoxaparin Sodium (Lovenox) 40 mg SC 0600 [facility] PRN Reason: Protocol Last Admin: 06/20/18 05:33 Dose: 40 mg Escitalopram Oxalate (Lexapro) 20 mg PO DAILY [facility] Last Admin: 06/20/18 09:44 Dose: 20 mg Ferrous Gluconate (Fergon) 324 mg PO TID [facility] Last Admin: 06/20/18 13:47 Dose: 324 mg Losartan Potassium (Cozaar) 100 mg PO DAILY [facility] Last Admin: 06/20/18 09:43 Dose: 100 mg Pantoprazole Sodium (Protonix Ec Tab) 40 mg PO 0600,1600 [facility] Last Admin: 06/20/18 05:33 Dose: 40 mg Potassium Chloride (Potassium Chloride Oral Soln) 40 meq PO BID [facility] Last Admin: 06/20/18 09:44 Dose: Not Given Vitamin B Complex/Vit C/Folic Acid (Nephro-Luciano) 1 tab PO 0800 [facility] Last Admin: 06/20/18 07:47 Dose: 1 tab - Labs Labs: 06/18/18 06:00 06/20/18 06:30
--- NOTE | 2018-06-20 16:32 | CP.PCM.PN ---
Subjective - Date & Time of Evaluation Date of Evaluation: 06/20/18 Time of Evaluation: 11:20 - Subjective Subjective: Comfortable, no fevers, no abdominal pain, less LBM. Objective - Vital Signs/Intake and Output Vital Signs (last 24 hours): Temp Pulse Resp BP Pulse Ox 98.8 F 83 20 147/73 96 06/20/18 06:00 06/20/18 06:00 06/20/18 06:00 06/20/18 09:44 06/20/18 06:00 Intake and Output: 06/20/18 06/20/18 06:59 18:59 Intake Total 380 Output Total 450 Balance -70 - Medications Medications: Current Medications Acetaminophen (Tylenol 325mg Tab) 650 mg PO Q6H PRN PRN Reason: Fever >100.4 F Albuterol/Ipratropium (Duoneb 3 Mg/0.5 Mg (3 Ml) Ud) 3 ml IH 0200,0800,1400, 2000 [facility] Last Admin: 06/20/18 07:16 Dose: 3 ml Amlodipine Besylate (Norvasc) 10 mg PO DAILY [facility] Last Admin: 06/20/18 09:44 Dose: 10 mg Aripiprazole (Abilify) 10 mg PO DAILY [facility] PRN Reason: Protocol Last Admin: 06/20/18 09:42 Dose: 10 mg Cholestyramine Resin (Questran) 2 gm PO BID [facility] Last Admin: 06/20/18 09:44 Dose: 2 gm Clonazepam (Klonopin) 0.5 mg PO DAILY [facility] PRN Reason: Protocol Last Admin: 06/20/18 09:48 Dose: 0.5 mg Enoxaparin Sodium (Lovenox) 40 mg SC 0600 [facility] PRN Reason: Protocol Last Admin: 06/20/18 05:33 Dose: 40 mg Escitalopram Oxalate (Lexapro) 20 mg PO DAILY [facility] Last Admin: 06/20/18 09:44 Dose: 20 mg Ferrous Gluconate (Fergon) 324 mg PO TID [facility] Last Admin: 06/20/18 09:43 Dose: 324 mg Losartan Potassium (Cozaar) 100 mg PO DAILY [facility] Last Admin: 06/20/18 09:43 Dose: 100 mg Pantoprazole Sodium (Protonix Ec Tab) 40 mg PO 0600,1600 [facility] Last Admin: 09/12/18 05:33 Dose: 40 mg Potassium Chloride (Potassium Chloride Oral Soln) 40 meq PO BID [facility] Last Admin: 06/20/18 09:44 Dose: Not Given Vitamin B Complex/Vit C/Folic Acid (Nephro-Luciano) 1 tab PO 0800 [facility] Last Admin: 06/20/18 07:47 Dose: 1 tab - Labs Labs: 06/18/18 06:00 06/20/18 06:30 - Constitutional Appears: No Acute Distress, Chronically Ill - Head Exam Head Exam: NORMAL INSPECTION - Respiratory Exam Respiratory Exam: Decreased Breath Sounds - Cardiovascular Exam Cardiovascular Exam: +S1, +S2 - GI/Abdominal Exam GI & Abdominal Exam: Soft. absent: Tenderness Assessment and Plan - Assessment and Plan (Free Text) Plan: Assessment intra-abdominal abscesses in this patient S/P acute appendicitis with appendiceal abscess S/P IR-guided drainage; with fluid collections, abscesses or hematoma S/P cholecystectomy S/P prostatectomy history of depression history of pneumonia Plan continue to monitor off antibiotics - as discussed with Surgery, their thought is that the fluid collections may be hematomas - since patient is having LBM and may be antibiotic-associated, will continue to monitor off antibiotics for now, monitor BM's; stool for C. diff. repeated today is negative surgery will also continue to monitor
--- NOTE | 2018-06-20 17:48 | CP.PCM.PN ---
Subjective - Date & Time of Evaluation Date of Evaluation: 06/20/18 Time of Evaluation: 11:20 - Subjective Subjective: S&e at bedside, chart reviewed, return from OT, no N/V or abdominal pain, abdomen still feel distended, having loose stool, no bleeding, cidff pending. Ct scan done yesterday, report decrease pelvic fluid, colon distended?partial obstruction vs ileus. Not much appetite this am. No acute overnight events reported. Objective - Vital Signs/Intake and Output Vital Signs (last 24 hours): Temp Pulse Resp BP Pulse Ox 98.8 F 94 H 20 147/73 90 L 06/20/18 06:00 06/20/18 16:53 06/20/18 06:00 06/20/18 09:44 06/20/18 16:53 Intake and Output: 06/20/18 06/20/18 06:59 18:59 Intake Total 380 Output Total 450 Balance -70 - Medications Medications: Current Medications Acetaminophen (Tylenol 325mg Tab) 650 mg PO Q6H PRN PRN Reason: Fever >100.4 F Albuterol/Ipratropium (Duoneb 3 Mg/0.5 Mg (3 Ml) Ud) 3 ml IH 0200,0800,1400, 2000 [facility] Last Admin: 06/20/18 13:55 Dose: 3 ml Amlodipine Besylate (Norvasc) 10 mg PO DAILY [facility] Last Admin: 06/20/18 09:44 Dose: 10 mg Aripiprazole (Abilify) 10 mg PO DAILY [facility] PRN Reason: Protocol Last Admin: 06/20/18 09:42 Dose: 10 mg Cholestyramine Resin (Questran) 2 gm PO BID [facility] Last Admin: 06/20/18 09:44 Dose: 2 gm Clonazepam (Klonopin) 0.5 mg PO DAILY [facility] PRN Reason: Protocol Last Admin: 06/20/18 09:48 Dose: 0.5 mg Enoxaparin Sodium (Lovenox) 40 mg SC 0600 [facility] PRN Reason: Protocol Last Admin: 06/20/18 05:33 Dose: 40 mg Escitalopram Oxalate (Lexapro) 20 mg PO DAILY [facility] Last Admin: 06/20/18 09:44 Dose: 20 mg Ferrous Gluconate (Fergon) 324 mg PO TID [facility] Last Admin: 06/20/18 13:47 Dose: 324 mg Losartan Potassium (Cozaar) 100 mg PO DAILY [facility] Last Admin: 06/20/18 09:43 Dose: 100 mg Pantoprazole Sodium (Protonix Ec Tab) 40 mg PO 0600,1600 [facility] Last Admin: 06/20/18 16:03 Dose: 40 mg Potassium Chloride (Potassium Chloride Oral Soln) 40 meq PO BID [facility] Last Admin: 06/20/18 09:44 Dose: Not Given Vitamin B Complex/Vit C/Folic Acid (Nephro-Luciano) 1 tab PO 0800 [facility] Last Admin: 06/20/18 07:47 Dose: 1 tab - Labs Labs: 06/18/18 06:00 06/20/18 06:30 - Constitutional Appears: No Acute Distress - Head Exam Head Exam: NORMOCEPHALIC - Eye Exam Eye Exam: Normal appearance. absent: Scleral icterus - ENT Exam ENT Exam: Mucous Membranes Moist - Neck Exam Neck Exam: Normal Inspection - Respiratory Exam Respiratory Exam: NORMAL BREATHING PATTERN. absent: Respiratory Distress - Cardiovascular Exam Cardiovascular Exam: +S1, +S2 - GI/Abdominal Exam GI & Abdominal Exam: Distended, Soft, Normal Bowel Sounds. absent: Guarding, Tenderness, Rebound - Extremities Exam Extremities Exam: absent: Calf Tenderness - Neurological Exam Neurological Exam: Alert, Awake, Oriented x3 - Skin Skin Exam: Dry, Warm Assessment and Plan - Assessment and Plan (Free Text) Assessment: 73 year old male with a past medical history significant for depression and prostate cancer s/p prostatectomy who originally presented after complicated drain removal placed for appendicitis complicated by abscess and abdominal fluid collections. GI was consulted after he was found to have FOBT positive stool. ASSESSMENT: Pelvic Fluid, s/p repeat ct scan, decrease pelvic fluid size, PSO vs Ileus Diarrhea Abnormal LFT's Heme occult positive stool Plan: C. Diff serology and stool culture negative; Repeat C. Diff serology pending Continue Questran half pack BID for diarrhea Hendricks, [place]ablo Free and Lactose Restricted Diet with Ensure Enlive supplemention BID Continue PPI surgery on board monitor H/H and for overt GI bleeding review ct scan with radiology GI Disposition: Patient would benefit from EGD/Colonoscopy for further evaluation of both heme occult positive stools and diarrhea. The decision as to whether this will be done prior to discharge or as an outpatient will be based on his clinical course while in the TCU. We will continue to discuss this with patients PMD. Seen and case discussed with Dr. Chandler
[2018-06-21] MEDS: Albuterol-Ipratrop 3 mg / 0.5 (3 ml) UD IH SCH ×4 (02:05→20:01)
[2018-06-21] MEDS: Enoxaparin 40 mg Syringe SC SCH (05:22)
[2018-06-21] MEDS: Pantoprazole 40 mg EC Tab PO SCH ×2 (05:26→17:46)
[2018-06-21 07:16] LABS: BLOOD UREA NITROGEN 10 mg/dL (7-21); CALCIUM 8.4 mg/dL (8.4-10.5); GFR NON-AFRICAN AMERICAN > 60
--- NOTE | 2018-06-21 07:48 | CP.PCM.PN ---
Subjective - Date & Time of Evaluation Date of Evaluation: 06/21/18 Time of Evaluation: 07:00 - Subjective Subjective: Micky Barrera DO, PGY-1 Surgery Progress Note for Dr. Madden Patient was seen and examined this AM with surgery team. He reports continued loose stools about 3 per day but the volume seems to be decreasing. He reports improved mood this AM. Objective - Vital Signs/Intake and Output Vital Signs (last 24 hours): Temp Pulse Resp BP Pulse Ox 98.8 F 94 H 20 147/73 90 L 06/20/18 06:00 06/20/18 16:53 06/20/18 06:00 06/20/18 09:44 06/20/18 16:53 Intake and Output: 06/21/18 06/21/18 06:59 18:59 Intake Total 320 Output Total 400 Balance -80 - Medications Medications: Current Medications Acetaminophen (Tylenol 325mg Tab) 650 mg PO Q6H PRN PRN Reason: Fever >100.4 F Albuterol/Ipratropium (Duoneb 3 Mg/0.5 Mg (3 Ml) Ud) 3 ml IH 0200,0800,1400, 2000 [facility] Last Admin: 06/21/18 07:17 Dose: 3 ml Amlodipine Besylate (Norvasc) 10 mg PO DAILY [facility] Last Admin: 06/20/18 09:44 Dose: 10 mg Aripiprazole (Abilify) 10 mg PO DAILY [facility] PRN Reason: Protocol Last Admin: 06/20/18 09:42 Dose: 10 mg Cholestyramine Resin (Questran) 2 gm PO BID [facility] Last Admin: 06/20/18 17:56 Dose: 2 gm Clonazepam (Klonopin) 0.5 mg PO DAILY [facility] PRN Reason: Protocol Last Admin: 06/20/18 09:48 Dose: 0.5 mg Enoxaparin Sodium (Lovenox) 40 mg SC 0600 [facility] PRN Reason: Protocol Last Admin: 06/21/18 05:22 Dose: 40 mg Escitalopram Oxalate (Lexapro) 20 mg PO DAILY [facility] Last Admin: 06/20/18 09:44 Dose: 20 mg Ferrous Gluconate (Fergon) 324 mg PO TID [facility] Last Admin: 06/20/18 17:56 Dose: 324 mg Losartan Potassium (Cozaar) 100 mg PO DAILY [facility] Last Admin: 06/20/18 09:43 Dose: 100 mg Pantoprazole Sodium (Protonix Ec Tab) 40 mg PO 0600,1600 [facility] Last Admin: 06/21/18 05:26 Dose: 40 mg Potassium Chloride (Potassium Chloride Oral Soln) 40 meq PO BID [facility] Last Admin: 06/20/18 09:44 Dose: Not Given Vitamin B Complex/Vit C/Folic Acid (Nephro-Luciano) 1 tab PO 0800 [facility] Last Admin: 06/20/18 07:47 Dose: 1 tab - Labs Labs: 06/18/18 06:00 06/21/18 06:30 - Constitutional Appears: Non-toxic, No Acute Distress - Head Exam Head Exam: ATRAUMATIC, NORMAL INSPECTION - Eye Exam Eye Exam: Normal appearance - ENT Exam ENT Exam: Mucous Membranes Moist - Neck Exam Neck Exam: Full ROM, Normal Inspection - Respiratory Exam Respiratory Exam: absent: Accessory Muscle Use, Respiratory Distress - Cardiovascular Exam Cardiovascular Exam: +S1, +S2 - GI/Abdominal Exam GI & Abdominal Exam: Distended (improving). absent: Guarding, Tenderness, Rebound - Extremities Exam Extremities Exam: Normal Inspection - Neurological Exam Neurological Exam: Awake, Oriented x3 - Psychiatric Exam Psychiatric exam: Depressed (improving), Flat Affect - Skin Skin Exam: Dry, Intact, Normal Color, Warm Assessment and Plan - Assessment and Plan (Free Text) Assessment: 73 year old male s/p coiling of R superior gluteal artery and s/p removal of IR drain placed for perforated appendicitis. Plan: -Patient reports volume of diarrhea improving -Will see GI outpatient for colonoscopy -Mood appears improved today -Encouraged him to continue to work with PT as they will need to clear him before going home -Psych, ID, GI, nephro following recs appreciated Case and plan discussed with Dr. Chano Barrera, DO IM Resident PGY-1
[2018-06-21] MEDS ORDERED: Potassium Chloride 20 mEq ER Tab PO ONE ×2 (07:52→08:02)
[2018-06-21] MEDS: Multivitamin Vitamin B Complex (Nephro-Vite) Tab PO SCH (08:40)
[2018-06-21] MEDS: Potassium Chloride 40 mEq/30 ml LIQ UD PO SCH ×2 (10:10→17:45)
[2018-06-21] MEDS: Cholestyramine 4 gm/Pkt UD PO SCH (10:10)
--- NOTE | 2018-06-21 11:33 | CP.PCM.PN ---
Addendum entered and electronically signed by Shalom Mendez DO 06/21/18 12:50 : Subjective should read that "his diarrhea has improved in regards to volume expelled." Please disregard "ine outpu" as this is a typing error. Original Note: <Shalom Mendez - Last Filed: 06/21/18 12:17> Subjective - Date & Time of Evaluation Date of Evaluation: 06/21/18 Time of Evaluation: 11:33 - Subjective Subjective: GI Progress Note for Dr. Chandler's Service- Jordy, PGY2 Patient seen and assessed at bedside in TCU. No acute events noted overnight. He reports that he is tolerating his diet well and that his abdominal pain/ distention is improving. He also reports that his diarrhea has improved in rine outpuegards to volume expelled. Patient denies any fevers, chills, chest pain, SOB, N/V/C, hematochezia, melena, changes in urine output or any skin changes. Objective - Vital Signs/Intake and Output Vital Signs (last 24 hours): Temp Pulse Resp BP Pulse Ox 98.8 F 94 H 20 132/70 90 L 06/20/18 06:00 06/20/18 16:53 06/20/18 06:00 06/21/18 10:10 06/20/18 16:53 Intake and Output: 06/21/18 06/21/18 06:59 18:59 Intake Total 320 Output Total 400 Balance -80 - Medications Medications: Current Medications Acetaminophen (Tylenol 325mg Tab) 650 mg PO Q6H PRN PRN Reason: Fever >100.4 F Albuterol/Ipratropium (Duoneb 3 Mg/0.5 Mg (3 Ml) Ud) 3 ml IH 0200,0800,1400, 2000 [facility] Last Admin: 06/21/18 07:17 Dose: 3 ml Amlodipine Besylate (Norvasc) 10 mg PO DAILY [facility] Last Admin: 06/21/18 10:10 Dose: 10 mg Aripiprazole (Abilify) 10 mg PO DAILY [facility] PRN Reason: Protocol Last Admin: 06/21/18 10:09 Dose: 10 mg Cholestyramine Resin (Questran) 2 gm PO BID [facility] Last Admin: 06/21/18 10:10 Dose: 2 gm Clonazepam (Klonopin) 0.5 mg PO DAILY [facility] PRN Reason: Protocol Last Admin: 06/21/18 10:12 Dose: 0.5 mg Enoxaparin Sodium (Lovenox) 40 mg SC 0600 [facility] PRN Reason: Protocol Last Admin: 06/21/18 05:22 Dose: 40 mg Escitalopram Oxalate (Lexapro) 20 mg PO DAILY [facility] Last Admin: 06/21/18 10:10 Dose: 20 mg Ferrous Gluconate (Fergon) 324 mg PO TID [facility] Last Admin: 06/21/18 10:10 Dose: 324 mg Losartan Potassium (Cozaar) 100 mg PO DAILY [facility] Last Admin: 06/21/18 10:09 Dose: 100 mg Pantoprazole Sodium (Protonix Ec Tab) 40 mg PO 0600,1600 [facility] Last Admin: 06/21/18 05:26 Dose: 40 mg Potassium Chloride (Potassium Chloride Oral Soln) 40 meq PO BID [facility] Last Admin: 06/21/18 10:10 Dose: 40 meq Vitamin B Complex/Vit C/Folic Acid (Nephro-Luciano) 1 tab PO 0800 [facility] Last Admin: 06/21/18 08:40 Dose: 1 tab - Labs Labs: 06/18/18 06:00 06/21/18 06:30 - Constitutional Appears: Non-toxic, No Acute Distress - Head Exam Head Exam: ATRAUMATIC - Eye Exam Eye Exam: EOMI - ENT Exam ENT Exam: Mucous Membranes Moist - Neck Exam Neck Exam: Full ROM - Respiratory Exam Respiratory Exam: NORMAL BREATHING PATTERN. absent: Accessory Muscle Use, Respiratory Distress - Cardiovascular Exam Cardiovascular Exam: RRR, +S1, +S2 - GI/Abdominal Exam GI & Abdominal Exam: Distended (Interval improvement noted), Firm, Normal Bowel Sounds. absent: Bruit, Guarding, Rigid, Soft, Tenderness, Diminished Bowel Sounds, Hernia, Hyperactive Bowel Sounds, Hypoactive Bowel Sounds, Mass, Organomegaly, Pulsatile Mass, Rebound - Rectal Exam Rectal Exam: Deferred - Extremities Exam Extremities Exam: absent: Calf Tenderness, Pedal Edema - Neurological Exam Neurological Exam: Alert, Awake, Oriented x3 - Psychiatric Exam Psychiatric exam: Normal Affect, Normal Mood - Skin Skin Exam: Dry, Intact, Normal Color, Warm Assessment and Plan - Assessment and Plan (Free Text) Assessment: 73 year old male with a past medical history significant for depression and prostate cancer s/p prostatectomy who originally presented after complicated drain removal placed for appendicitis complicated by abscess and abdominal fluid collections. GI was consulted after he was found to have FOBT positive stool. #diarrhea #abnormal LFT's #heme occult positive stool Plan: -CT Abdomen/Pelvis reviewed and shows colonic distention with air fluid levels and possible distal partial obstruction with interval improvement in fluid collections, other than the collection adherent to left side of the bladder wall -Repeat C. Diff serology and stool culture negative -Continue Questran half pack BID for diarrhea -[place], Luck Free and Lactose Restricted Diet with Ensure Enlive supplemention BID -Continue PPI GI Disposition: Patient would benefit from EGD/Colonoscopy for further evaluation of both heme occult positive stools and diarrhea. The decision as to whether this will be done prior to discharge or as an outpatient will be based on his clinical course while in the TCU. Patient seen and case discussed with attending, Dr. Chandler. <Dara Chandler V - Last Filed: 06/21/18 22:58> Objective - Vital Signs/Intake and Output Vital Signs (last 24 hours): Temp Pulse Resp BP Pulse Ox 99.8 F H 98 H 20 113/62 94 L 06/21/18 16:23 06/21/18 16:23 06/21/18 16:23 06/21/18 16:23 06/21/18 10:00 Intake and Output: 06/21/18 06/22/18 18:59 06:59 Intake Total 380 Balance 380 - Medications Medications: Current Medications Acetaminophen (Tylenol 325mg Tab) 650 mg PO Q6H PRN PRN Reason: Fever >100.4 F Albuterol/Ipratropium (Duoneb 3 Mg/0.5 Mg (3 Ml) Ud) 3 ml IH 0200,0800,1400, 2000 [facility] Last Admin: 06/21/18 20:01 Dose: 3 ml Amlodipine Besylate (Norvasc) 10 mg PO DAILY [facility] Last Admin: 06/21/18 10:10 Dose: 10 mg Aripiprazole (Abilify) 10 mg PO DAILY [facility] PRN Reason: Protocol Last Admin: 06/21/18 10:09 Dose: 10 mg Clonazepam (Klonopin) 0.5 mg PO DAILY [facility] PRN Reason: Protocol Last Admin: 06/21/18 10:12 Dose: 0.5 mg Enoxaparin Sodium (Lovenox) 40 mg SC 0600 [facility] PRN Reason: Protocol Last Admin: 06/21/18 05:22 Dose: 40 mg Escitalopram Oxalate (Lexapro) 20 mg PO DAILY [facility] Last Admin: 06/21/18 10:10 Dose: 20 mg Ferrous Gluconate (Fergon) 324 mg PO TID [facility] Last Admin: 06/21/18 17:45 Dose: 324 mg Losartan Potassium (Cozaar) 100 mg PO DAILY [facility] Last Admin: 06/21/18 10:09 Dose: 100 mg Pantoprazole Sodium (Protonix Ec Tab) 40 mg PO 0600,1600 [facility] Last Admin: 06/21/18 17:46 Dose: 40 mg Potassium Chloride (Potassium Chloride Oral Soln) 40 meq PO BID [facility] Last Admin: 06/21/18 17:45 Dose: 40 meq Vitamin B Complex/Vit C/Folic Acid (Nephro-Luciano) 1 tab PO 0800 [facility] Last Admin: 06/21/18 08:40 Dose: 1 tab - Labs Labs: 06/18/18 06:00 06/21/18 06:30 Attending/Attestation - Attestation I have personally seen and examined this patient.: Yes I have fully participated in the care of the patient.: Yes I have reviewed all pertinent clinical information, including history, physical exam and plan: Yes Notes (Text): This is an addendum to GI followup report dictated by the Time Clerk. The patient was seen and evaluated earlier. Medical records, lab studies, imagings were reviewed. Last 24 hours events reviewed. Agreed with the above treatment plan as outlined in Time Clerk 's notes with the addition of the following CT scan was reviewed the collection appears to be slightly smaller diarrhea slightly better on QUESTRON Abdomin softly distended DC KATERIN will discuss with the surgery 06/21/18 22:56
--- NOTE | 2018-06-21 17:00 | CP.PCM.PN ---
Subjective - Date & Time of Evaluation Date of Evaluation: 06/21/18 Time of Evaluation: 16:59 - Subjective Subjective: Nephrology Consultation Note: Assessment: Stable Hypokalemia likely due to decreased oral intake and increased GI loss metabolic alkalosis perforated appendicitis with multiple loculated fluid collections in the pelvis Anemia of acute blood loss hx of CA prostate, depression elevated BP, no hx of HTN Plan supplement potassium as ordered. extra doses of K supplemented today continue with iron and MVI for anemia BP control with meds as ordered. on losartan to 100 mg/day and norvasc 10 mg/day Dose meds/antibiotics for normal GFR. Glycemic control Further work up/management as per primary team, ID Thanks for allowing me to participate in care of your patient. Will follow patient with you. Please call if any Qs. had d/w team Dr Fred Vieyra Office: [phone] Chief Complaint; loose stool Reason for consult: hypokalemia HPI: Pt is a 73 year old male with hx of depression, CA prostate came initially with perforated appendicitis which was managed conservatively with IR guided drainage with catheter which got removed later and led to anemia/blood loss now s/p coiling of R superior gluteal artery also treated for LLL pneumonia , multiple loculated fluid collections in the pelvis being initially planned for IR intervention and or ex lap but now for conservative management found to have HTN with hypokalemia hence consulted renal pt denies nausea/vomitting. c/o daily loose stool and diarrhoea. reports decreased intake and poor appetite. no SOB or chest pain ROS: improved appetite and oral intake. Cardiovascular: No chest pain. Pulmonary: No shortness of breath Gastrointestinal: no abdominal pain No nausea. No vomiting. has loose stool Genitourinary: No pain while urinating. Denies blood in urine. All other negative except as mentioned in HPI Physical Examination: General Appearance: comfortable, in no acute respiratory distress, co-operative Vitals reviewed and noted as below Head; Atraumatic, normocephalic ENT: no ulcers no thrush. Tongue is midline. Oropharynx: no rash or ulcers. EYES: Pupils are equal, round and reactive to light accommodation. Eye muscles and extraocular movement intact. Sclera is anicteric. Neck; supple no lymphadenopathy, no thyromegaly or bruit Lungs: Normal respiratory rate/effort. Breath sounds bilateral clear anteriorly Heart: Normal rate. s1s2 normal. No rub or gallop. Extremities: no edema. No varicose veins Neurological: Patient is alert, awake and oriented to person, place and time. No focal deficit. Strength bilateral appropriate and equal Skin: Warm and dry. Normal turgor. No rash. Palpitation: Normal elasticity for age Abdomen: Abdomen is soft/distended. Bowel sounds +. There is no abdominal tenderness, no guarding/rigidity no organomegaly Psych: limited insight and flat affect/mood MSK: no joint tenderness or swelling. Digits and nails normal, no deformity : kidney or bladder not palpable Labs/imaging reviewed. Past medical history, past surgical history, family history, social history, allergy reviewed and noted as below Family hx: no hx of CKD. Rest non-contributory imaging: normal adrenals and kidneys Mg 2.0 TTKG 4 shravan 1 renin 0.1 Objective - Vital Signs/Intake and Output Vital Signs (last 24 hours): Temp Pulse Resp BP Pulse Ox 99.8 F H 98 H 20 113/62 94 L 06/21/18 16:23 06/21/18 16:23 06/21/18 16:23 06/21/18 16:23 06/21/18 10:00 Intake and Output: 06/21/18 06/21/18 06:59 18:59 Intake Total 320 Output Total 400 Balance -80 - Medications Medications: Current Medications Acetaminophen (Tylenol 325mg Tab) 650 mg PO Q6H PRN PRN Reason: Fever >100.4 F Albuterol/Ipratropium (Duoneb 3 Mg/0.5 Mg (3 Ml) Ud) 3 ml IH 0200,0800,1400, 2000 [facility] Last Admin: 06/21/18 13:37 Dose: 3 ml Amlodipine Besylate (Norvasc) 10 mg PO DAILY [facility] Last Admin: 06/21/18 10:10 Dose: 10 mg Aripiprazole (Abilify) 10 mg PO DAILY [facility] PRN Reason: Protocol Last Admin: 06/21/18 10:09 Dose: 10 mg Cholestyramine Resin (Questran) 2 gm PO BID [facility] Last Admin: 06/21/18 10:10 Dose: 2 gm Clonazepam (Klonopin) 0.5 mg PO DAILY [facility] PRN Reason: Protocol Last Admin: 06/21/18 10:12 Dose: 0.5 mg Enoxaparin Sodium (Lovenox) 40 mg SC 0600 [facility] PRN Reason: Protocol Last Admin: 06/21/18 05:22 Dose: 40 mg Escitalopram Oxalate (Lexapro) 20 mg PO DAILY [facility] Last Admin: 06/21/18 10:10 Dose: 20 mg Ferrous Gluconate (Fergon) 324 mg PO TID [facility] Last Admin: 06/21/18 13:50 Dose: 324 mg Losartan Potassium (Cozaar) 100 mg PO DAILY [facility] Last Admin: 06/21/18 10:09 Dose: 100 mg Pantoprazole Sodium (Protonix Ec Tab) 40 mg PO 0600,1600 [facility] Last Admin: 06/21/18 05:26 Dose: 40 mg Potassium Chloride (Potassium Chloride Oral Soln) 40 meq PO BID [facility] Last Admin: 06/21/18 10:10 Dose: 40 meq Vitamin B Complex/Vit C/Folic Acid (Nephro-Luciano) 1 tab PO 0800 [facility] Last Admin: 06/21/18 08:40 Dose: 1 tab - Labs Labs: 06/18/18 06:00 06/21/18 06:30
--- NOTE | 2018-06-21 17:33 | PN ---
DATE: 06/21/2018 SUBJECTIVE: The patient is in bed, in no acute distress, nontoxic, who was seen earlier this morning in room 317. PHYSICAL EXAMINATION: VITAL SIGNS: On exam, temperature is 99, blood pressure is 113/60, respiratory rate of 18. HEENT: Examination of HEENT is unremarkable. NECK: Supple. LUNGS: Have decreased breath sounds. HEART: Normal S1, S2. ABDOMEN: Soft, nontender. LABORATORY DATA: Laboratory examination reveals a white count of 10,000, hemoglobin of 10. Chemistries are reviewed. Microbiology is noted. The stool for C. diff antigen from 06/20/2018, which was yesterday negative antigen, negative toxin. ASSESSMENT AND PLAN: A 73-year-old with an intra-abdominal abscess in a patient status post acute appendicitis, status post appendiceal abscess, status post IR-guided drainage fluid collection, abscesses or hematoma and currently now off of antibiotics, afebrile. The patient is at risk for developing nosocomial infections. Review of medication confirms the patient to be off of antibiotics. Jose Melendrez MD
[2018-06-22] MEDS: Enoxaparin 40 mg Syringe SC SCH (05:54)
[2018-06-22] MEDS: Pantoprazole 40 mg EC Tab PO SCH ×2 (05:54→18:22)
[2018-06-22 07:26] LABS: BLOOD UREA NITROGEN 13 mg/dL (7-21); CALCIUM 8.4 mg/dL (8.4-10.5); GFR NON-AFRICAN AMERICAN > 60
[2018-06-22] MEDS: Albuterol-Ipratrop 3 mg / 0.5 (3 ml) UD IH SCH ×3 (07:28→19:22)
--- NOTE | 2018-06-22 07:55 | CP.PCM.PN ---
Subjective - Date & Time of Evaluation Date of Evaluation: 06/22/18 Time of Evaluation: 07:00 - Subjective Subjective: Micky Barrera DO, PGY-1 Surgery Progress Note for Dr. Madden Patient was seen and examined at bedside this AM with surgery team. He reports continued loose stools 4 times yesterday. He feels embarrassed because he had an accident yesterday in bed. Otherwise, he denies nausea/vomiting or loss of appetite. Objective - Vital Signs/Intake and Output Vital Signs (last 24 hours): Temp Pulse Resp BP Pulse Ox 99.8 F H 98 H 20 113/62 94 L 06/21/18 16:23 06/21/18 16:23 06/21/18 16:23 06/21/18 16:23 06/21/18 10:00 Intake and Output: 06/22/18 06/22/18 06:59 18:59 Intake Total 500 Balance 500 - Medications Medications: Current Medications Acetaminophen (Tylenol 325mg Tab) 650 mg PO Q6H PRN PRN Reason: Fever >100.4 F Albuterol/Ipratropium (Duoneb 3 Mg/0.5 Mg (3 Ml) Ud) 3 ml IH 0200,0800,1400, 2000 [facility] Last Admin: 06/22/18 07:28 Dose: 3 ml Amlodipine Besylate (Norvasc) 10 mg PO DAILY [facility] Last Admin: 06/21/18 10:10 Dose: 10 mg Aripiprazole (Abilify) 10 mg PO DAILY [facility] PRN Reason: Protocol Last Admin: 06/21/18 10:09 Dose: 10 mg Clonazepam (Klonopin) 0.5 mg PO DAILY [facility] PRN Reason: Protocol Last Admin: 06/21/18 10:12 Dose: 0.5 mg Enoxaparin Sodium (Lovenox) 40 mg SC 0600 [facility] PRN Reason: Protocol Last Admin: 06/22/18 05:54 Dose: 40 mg Escitalopram Oxalate (Lexapro) 20 mg PO DAILY [facility] Last Admin: 06/21/18 10:10 Dose: 20 mg Ferrous Gluconate (Fergon) 324 mg PO TID [facility] Last Admin: 06/21/18 17:45 Dose: 324 mg Losartan Potassium (Cozaar) 100 mg PO DAILY [facility] Last Admin: 06/21/18 10:09 Dose: 100 mg Pantoprazole Sodium (Protonix Ec Tab) 40 mg PO 0600,1600 [facility] Last Admin: 06/22/18 05:54 Dose: 40 mg Potassium Chloride (Potassium Chloride Oral Soln) 40 meq PO BID [facility] Last Admin: 06/21/18 17:45 Dose: 40 meq Vitamin B Complex/Vit C/Folic Acid (Nephro-Luciano) 1 tab PO 0800 [facility] Last Admin: 06/21/18 08:40 Dose: 1 tab - Labs Labs: 06/18/18 06:00 06/22/18 06:20 - Constitutional Appears: Non-toxic, No Acute Distress - Head Exam Head Exam: ATRAUMATIC, NORMAL INSPECTION - Eye Exam Eye Exam: Normal appearance - ENT Exam ENT Exam: Mucous Membranes Moist - Neck Exam Neck Exam: Full ROM, Normal Inspection - Respiratory Exam Respiratory Exam: absent: Accessory Muscle Use, Respiratory Distress - Cardiovascular Exam Cardiovascular Exam: +S1, +S2 - GI/Abdominal Exam GI & Abdominal Exam: Distended (improving from prior exams), Soft. absent: Guarding, Tenderness, Rebound - Extremities Exam Extremities Exam: Normal Inspection - Neurological Exam Neurological Exam: Alert, Awake, Oriented x3 - Psychiatric Exam Psychiatric exam: Normal Affect, Normal Mood - Skin Skin Exam: Dry, Intact, Normal Color, Warm Additional comments: a few flesh colored papules observed on the face are intra-dermal nevi, unchanged from prior exams Assessment and Plan - Assessment and Plan (Free Text) Assessment: 73 yo M s/p perforated appendicitis and superior gluteal a. bleed, in TCU for management of persistent diarrhea, hypokalemia, weakness. Plan: -PT/OT recommending subacute rehab at this point -Low energy and motivation suspect secondary to chronic depression -Stressed importance of following up with his psychiatrist outpatient -Stressed importance of working with PT and OT or he will not be able to function independently at home -Continues to be hypokalemic, will continue with repletion -Consider increasing daily PO dose with close outpatient f/u -Nephrology following, recs appreciated -Patient would benefit from colonoscopy for microscopic blood in stool and chronic diarrhea and large bowel obstruction Case and plan discussed with Dr. Chano Barrera, DO IM Resident PGY-1
[2018-06-22] MEDS ORDERED: Potassium Chloride 20 mEq ER Tab PO ONE (08:19)
[2018-06-22] MEDS: Potassium Chloride 20 mEq ER Tab PO STA ×2 (08:43→08:44)
[2018-06-22] MEDS: Multivitamin Vitamin B Complex (Nephro-Vite) Tab PO SCH (08:45)
[2018-06-22] MEDS ORDERED: Nystatin 100,000 Units/gm Cream(15 gm) TOP PRN (08:55)
--- NOTE | 2018-06-22 09:16 | CP.PCM.PN ---
<Shalom Mendez - Last Filed: 06/22/18 15:24> Subjective - Date & Time of Evaluation Date of Evaluation: 06/22/18 Time of Evaluation: 09:15 - Subjective Subjective: GI Progress Note for Dr. Chandler's Service- Jordy, PGY2 Patient seen and assessed at bedside in TCU. Patient continues to endorse mild to moderate diarrhea with progressive improvement. He also reports that his abdominal distention has improved. Patient denies any fevers, chills, chest pain , SOB, N/V/C, hematochezia, melena, changes in urine output or any skin changes. Objective - Vital Signs/Intake and Output Vital Signs (last 24 hours): Temp Pulse Resp BP Pulse Ox 99.8 F H 98 H 20 113/62 94 L 06/21/18 16:23 06/21/18 16:23 06/21/18 16:23 06/21/18 16:23 06/21/18 10:00 Intake and Output: 06/22/18 06/22/18 06:59 18:59 Intake Total 500 Balance 500 - Medications Medications: Current Medications Acetaminophen (Tylenol 325mg Tab) 650 mg PO Q6H PRN PRN Reason: Fever >100.4 F Albuterol/Ipratropium (Duoneb 3 Mg/0.5 Mg (3 Ml) Ud) 3 ml IH 0200,0800,1400, 2000 [facility] Last Admin: 06/22/18 07:28 Dose: 3 ml Amlodipine Besylate (Norvasc) 10 mg PO DAILY [facility] Last Admin: 06/21/18 10:10 Dose: 10 mg Aripiprazole (Abilify) 10 mg PO DAILY [facility] PRN Reason: Protocol Last Admin: 06/21/18 10:09 Dose: 10 mg Clonazepam (Klonopin) 0.5 mg PO DAILY [facility] PRN Reason: Protocol Last Admin: 06/21/18 10:12 Dose: 0.5 mg Enoxaparin Sodium (Lovenox) 40 mg SC 0600 [facility] PRN Reason: Protocol Last Admin: 06/22/18 05:54 Dose: 40 mg Escitalopram Oxalate (Lexapro) 20 mg PO DAILY [facility] Last Admin: 06/21/18 10:10 Dose: 20 mg Ferrous Gluconate (Fergon) 324 mg PO TID [facility] Last Admin: 06/21/18 17:45 Dose: 324 mg Losartan Potassium (Cozaar) 100 mg PO DAILY [facility] Last Admin: 06/21/18 10:09 Dose: 100 mg Nystatin (Mycostatin Cream) 0 ea TOP TID PRN PRN Reason: Rash Pantoprazole Sodium (Protonix Ec Tab) 40 mg PO 0600,1600 [facility] Last Admin: 06/22/18 05:54 Dose: 40 mg Potassium Chloride (Potassium Chloride Oral Soln) 40 meq PO BID [facility] Last Admin: 06/21/18 17:45 Dose: 40 meq Potassium Chloride (K-Dur 20 Meq Er Tab) 40 meq PO Q2H [facility] Stop: 06/22/18 10:16 Vitamin B Complex/Vit C/Folic Acid (Nephro-Luciano) 1 tab PO 0800 [facility] Last Admin: 06/22/18 08:45 Dose: 1 tab - Labs Labs: 06/18/18 06:00 06/22/18 06:20 - Constitutional Appears: Non-toxic, No Acute Distress - Head Exam Head Exam: ATRAUMATIC, NORMOCEPHALIC - Eye Exam Eye Exam: EOMI - ENT Exam ENT Exam: Mucous Membranes Moist - Neck Exam Neck Exam: Full ROM - Respiratory Exam Respiratory Exam: NORMAL BREATHING PATTERN. absent: Accessory Muscle Use, Respiratory Distress - Cardiovascular Exam Cardiovascular Exam: RRR, +S1, +S2 - GI/Abdominal Exam GI & Abdominal Exam: Distended (Interval improvement noted), Soft, Normal Bowel Sounds. absent: Bruit, Firm, Guarding, Rigid, Tenderness, Diminished Bowel Sounds, Hernia, Hyperactive Bowel Sounds, Hypoactive Bowel Sounds, Mass, Organomegaly, Pulsatile Mass, Rebound - Rectal Exam Rectal Exam: Deferred - Neurological Exam Neurological Exam: Alert, Awake, Oriented x3 - Psychiatric Exam Psychiatric exam: Normal Affect, Normal Mood - Skin Skin Exam: Dry, Intact, Normal Color, Warm Assessment and Plan - Assessment and Plan (Free Text) Assessment: 73 year old male with a past medical history significant for depression and prostate cancer s/p prostatectomy who originally presented after complicated drain removal placed for appendicitis complicated by abscess and abdominal fluid collections. GI was consulted after he was found to have FOBT positive stool. #diarrhea #abnormal LFT's #heme occult positive stool Plan: -CT Abdomen/Pelvis reviewed and shows colonic distention with air fluid levels and possible distal partial obstruction with interval improvement in fluid collections, other than the collection adherent to left side of the bladder wall -Repeat C. Diff serology and stool culture negative -[place], [place] Free and Lactose Restricted Diet with Ensure Enlive supplemention BID -Continue PPI -Further management per surgery team GI Disposition: Patient would benefit from EGD/Colonoscopy for further evaluation of both heme occult positive stools and diarrhea. The decision as to whether this will be done prior to discharge or as an outpatient will be based on his clinical course while in the TCU. Patient seen and case discussed with attending, Dr. Chandler. <Dara Chandler V - Last Filed: 06/22/18 23:57> Objective - Vital Signs/Intake and Output Vital Signs (last 24 hours): Temp Pulse Resp BP Pulse Ox 98.9 F 88 20 110/58 L 90 L 06/22/18 16:00 06/22/18 16:00 06/22/18 16:00 06/22/18 16:00 06/22/18 16:00 Intake and Output: 06/22/18 06/23/18 18:59 06:59 Intake Total 420 Balance 420 - Medications Medications: Current Medications Acetaminophen (Tylenol 325mg Tab) 650 mg PO Q6H PRN PRN Reason: Fever >100.4 F Albuterol/Ipratropium (Duoneb 3 Mg/0.5 Mg (3 Ml) Ud) 3 ml IH 0200,0800,1400, 2000 [facility] Last Admin: 06/22/18 19:22 Dose: 3 ml Amlodipine Besylate (Norvasc) 10 mg PO DAILY [facility] Last Admin: 06/22/18 10:29 Dose: 10 mg Aripiprazole (Abilify) 10 mg PO DAILY [facility] PRN Reason: Protocol Last Admin: 06/22/18 10:28 Dose: 10 mg Clonazepam (Klonopin) 0.5 mg PO DAILY [facility] PRN Reason: Protocol Last Admin: 06/22/18 10:42 Dose: 0.5 mg Enoxaparin Sodium (Lovenox) 40 mg SC 0600 [facility] PRN Reason: Protocol Last Admin: 06/22/18 05:54 Dose: 40 mg Escitalopram Oxalate (Lexapro) 20 mg PO DAILY [facility] Last Admin: 06/22/18 13:34 Dose: 20 mg Ferrous Gluconate (Fergon) 324 mg PO TID [facility] Last Admin: 06/22/18 18:21 Dose: 324 mg Losartan Potassium (Cozaar) 100 mg PO DAILY [facility] Last Admin: 06/22/18 10:29 Dose: 100 mg Nystatin (Mycostatin Cream) 0 ea TOP TID PRN PRN Reason: Rash Pantoprazole Sodium (Protonix Ec Tab) 40 mg PO 0600,1600 [facility] Last Admin: 06/22/18 18:22 Dose: 40 mg Potassium Chloride (Potassium Chloride Oral Soln) 40 meq PO TID [facility] Last Admin: 06/22/18 18:22 Dose: 40 meq Vitamin B Complex/Vit C/Folic Acid (Nephro-Luciano) 1 tab PO 0800 [facility] Last Admin: 06/22/18 08:45 Dose: 1 tab - Labs Labs: 06/18/18 06:00 06/22/18 06:20 Attending/Attestation - Attestation I have personally seen and examined this patient.: Yes I have fully participated in the care of the patient.: Yes I have reviewed all pertinent clinical information, including history, physical exam and plan: Yes Notes (Text): This is an addendum to GI followup report dictated by the Tank Stave Assembler. The patient was seen and evaluated earlier. Medical records, lab studies, imagings were reviewed. Last 24 hours events reviewed. Agreed with the above treatment plan as outlined in [employer]er 's notes with the addition of the following Patient is off QUESTR[facility] Last CT scan was reviewed discussed with surgical team planned conservative approach On examination patient appears withdrawn depressed Would consider colonscopy and EGD When patient's condition is optimized will discuss with dr peters again abdominal collection appears to be secondary to hematoma needs followup 06/22/18 23:54
[2018-06-22] MEDS: Potassium Chloride 40 mEq/30 ml LIQ UD PO SCH ×3 (10:29→18:22)
[2018-06-22] MEDS: Potassium Chloride 20 mEq ER Tab PO SCH ×2 (10:39→10:40)
--- NOTE | 2018-06-22 13:47 | CP.PCM.PN ---
Subjective - Date & Time of Evaluation Date of Evaluation: 06/22/18 Time of Evaluation: 11:50 - Subjective Subjective: Comfortable in bed, no increase in abdominal pain, no fevers. Objective - Vital Signs/Intake and Output Vital Signs (last 24 hours): Temp Pulse Resp BP Pulse Ox 99.8 F H 98 H 20 137/72 94 L 06/21/18 16:23 06/21/18 16:23 06/21/18 16:23 06/22/18 10:29 06/21/18 10:00 Intake and Output: 06/22/18 06/22/18 06:59 18:59 Intake Total 500 420 Balance 500 420 - Medications Medications: Current Medications Acetaminophen (Tylenol 325mg Tab) 650 mg PO Q6H PRN PRN Reason: Fever >100.4 F Albuterol/Ipratropium (Duoneb 3 Mg/0.5 Mg (3 Ml) Ud) 3 ml IH 0200,0800,1400, 2000 [facility] Last Admin: 06/22/18 12:59 Dose: 3 ml Amlodipine Besylate (Norvasc) 10 mg PO DAILY [facility] Last Admin: 06/22/18 10:29 Dose: 10 mg Aripiprazole (Abilify) 10 mg PO DAILY [facility] PRN Reason: Protocol Last Admin: 06/22/18 10:28 Dose: 10 mg Clonazepam (Klonopin) 0.5 mg PO DAILY [facility] PRN Reason: Protocol Last Admin: 06/22/18 10:42 Dose: 0.5 mg Enoxaparin Sodium (Lovenox) 40 mg SC 0600 [facility] PRN Reason: Protocol Last Admin: 06/22/18 05:54 Dose: 40 mg Escitalopram Oxalate (Lexapro) 20 mg PO DAILY [facility] Last Admin: 06/22/18 13:34 Dose: 20 mg Ferrous Gluconate (Fergon) 324 mg PO TID [facility] Last Admin: 06/22/18 13:33 Dose: 324 mg Losartan Potassium (Cozaar) 100 mg PO DAILY [facility] Last Admin: 06/22/18 10:29 Dose: 100 mg Nystatin (Mycostatin Cream) 0 ea TOP TID PRN PRN Reason: Rash Pantoprazole Sodium (Protonix Ec Tab) 40 mg PO 0600,1600 [facility] Last Admin: 06/22/18 05:54 Dose: 40 mg Potassium Chloride (Potassium Chloride Oral Soln) 40 meq PO TID [facility] Last Admin: 06/22/18 13:34 Dose: 40 meq Vitamin B Complex/Vit C/Folic Acid (Nephro-Luciano) 1 tab PO 0800 [facility] Last Admin: 06/22/18 08:45 Dose: 1 tab - Labs Labs: 06/18/18 06:00 06/22/18 06:20 - Constitutional Appears: Non-toxic, Chronically Ill - Head Exam Head Exam: NORMAL INSPECTION - Respiratory Exam Respiratory Exam: Decreased Breath Sounds - Cardiovascular Exam Cardiovascular Exam: +S1, +S2 - GI/Abdominal Exam GI & Abdominal Exam: Soft. absent: Tenderness Assessment and Plan - Assessment and Plan (Free Text) Plan: Assessment history of intra-abdominal abscesses in this patient S/P acute appendicitis with appendiceal abscess S/P IR-guided drainage; with fluid collections currently, abscesses or hematoma S/P cholecystectomy S/P prostatectomy history of depression history of pneumonia Plan continue to monitor off antibiotics - as discussed with Surgery, their thought is that the fluid collections may be hematomas - since patient is having LBM and may be antibiotic-associated, will continue to monitor off antibiotics for now, monitor BM's; repeat stool for C. diff. is negative surgery will also continue to monitor
--- NOTE | 2018-06-22 14:49 | CP.PCM.PN ---
Subjective - Date & Time of Evaluation Date of Evaluation: 06/22/18 Time of Evaluation: 14:48 - Subjective Subjective: Nephrology Consultation Note: Assessment: Stable Hypokalemia likely due to decreased oral intake and increased GI loss metabolic alkalosis perforated appendicitis with multiple loculated fluid collections in the pelvis Anemia of acute blood loss hx of CA prostate, depression elevated BP, no hx of HTN Plan supplement potassium increased to 40 meq TID continue with iron and MVI for anemia BP control with meds as ordered. on losartan to 100 mg/day and norvasc 10 mg/day Dose meds/antibiotics for normal GFR. Glycemic control Further work up/management as per primary team, ID Thanks for allowing me to participate in care of your patient. Will follow patient with you. Please call if any Qs. had d/w team Dr Fred Vieyra Office: [phone] Chief Complaint; loose stool Reason for consult: hypokalemia HPI: Pt is a 73 year old male with hx of depression, CA prostate came initially with perforated appendicitis which was managed conservatively with IR guided drainage with catheter which got removed later and led to anemia/blood loss now s/p coiling of R superior gluteal artery also treated for LLL pneumonia , multiple loculated fluid collections in the pelvis being initially planned for IR intervention and or ex lap but now for conservative management found to have HTN with hypokalemia hence consulted renal pt denies nausea/vomitting. c/o daily loose stool and diarrhoea. reports decreased intake and poor appetite. no SOB or chest pain ROS: low appetite and oral intake. Cardiovascular: No chest pain. Pulmonary: No shortness of breath Gastrointestinal: no abdominal pain No nausea. No vomiting. has loose stool Genitourinary: No pain while urinating. Denies blood in urine. All other negative except as mentioned in HPI Physical Examination: General Appearance: comfortable, in no acute respiratory distress, co-operative Vitals reviewed and noted as below Head; Atraumatic, normocephalic ENT: no ulcers no thrush. Tongue is midline. Oropharynx: no rash or ulcers. EYES: Pupils are equal, round and reactive to light accommodation. Eye muscles and extraocular movement intact. Sclera is anicteric. Neck; supple no lymphadenopathy, no thyromegaly or bruit Lungs: Normal respiratory rate/effort. Breath sounds bilateral clear anteriorly Heart: Normal rate. s1s2 normal. No rub or gallop. Extremities: no edema. No varicose veins Neurological: Patient is alert, awake and oriented to person, place and time. No focal deficit. Strength bilateral appropriate and equal Skin: Warm and dry. Normal turgor. No rash. Palpitation: Normal elasticity for age Abdomen: Abdomen is soft/distended. Bowel sounds +. There is no abdominal tenderness, no guarding/rigidity no organomegaly Psych: limited insight and flat affect/mood MSK: no joint tenderness or swelling. Digits and nails normal, no deformity : kidney or bladder not palpable Labs/imaging reviewed. Past medical history, past surgical history, family history, social history, allergy reviewed and noted as below Family hx: no hx of CKD. Rest non-contributory imaging: normal adrenals and kidneys Mg 2.0 TTKG 4 shravan 1 renin 0.1 Objective - Vital Signs/Intake and Output Vital Signs (last 24 hours): Temp Pulse Resp BP Pulse Ox 99.8 F H 98 H 20 137/72 94 L 06/21/18 16:23 06/21/18 16:23 06/21/18 16:23 06/22/18 10:29 06/21/18 10:00 Intake and Output: 06/22/18 06/22/18 06:59 18:59 Intake Total 500 420 Balance 500 420 - Medications Medications: Current Medications Acetaminophen (Tylenol 325mg Tab) 650 mg PO Q6H PRN PRN Reason: Fever >100.4 F Albuterol/Ipratropium (Duoneb 3 Mg/0.5 Mg (3 Ml) Ud) 3 ml IH 0200,0800,1400, 2000 [facility] Last Admin: 06/22/18 12:59 Dose: 3 ml Amlodipine Besylate (Norvasc) 10 mg PO DAILY [facility] Last Admin: 06/22/18 10:29 Dose: 10 mg Aripiprazole (Abilify) 10 mg PO DAILY [facility] PRN Reason: Protocol Last Admin: 06/22/18 10:28 Dose: 10 mg Clonazepam (Klonopin) 0.5 mg PO DAILY [facility] PRN Reason: Protocol Last Admin: 06/22/18 10:42 Dose: 0.5 mg Enoxaparin Sodium (Lovenox) 40 mg SC 0600 [facility] PRN Reason: Protocol Last Admin: 06/22/18 05:54 Dose: 40 mg Escitalopram Oxalate (Lexapro) 20 mg PO DAILY [facility] Last Admin: 06/22/18 13:34 Dose: 20 mg Ferrous Gluconate (Fergon) 324 mg PO TID [facility] Last Admin: 06/22/18 13:33 Dose: 324 mg Losartan Potassium (Cozaar) 100 mg PO DAILY [facility] Last Admin: 06/22/18 10:29 Dose: 100 mg Nystatin (Mycostatin Cream) 0 ea TOP TID PRN PRN Reason: Rash Pantoprazole Sodium (Protonix Ec Tab) 40 mg PO 0600,1600 [facility] Last Admin: 06/22/18 05:54 Dose: 40 mg Potassium Chloride (Potassium Chloride Oral Soln) 40 meq PO TID [facility] Last Admin: 06/22/18 13:34 Dose: 40 meq Vitamin B Complex/Vit C/Folic Acid (Nephro-Luciano) 1 tab PO 0800 [facility] Last Admin: 06/22/18 08:45 Dose: 1 tab - Labs Labs: 06/18/18 06:00 06/22/18 06:20
[2018-06-23] MEDS: Albuterol-Ipratrop 3 mg / 0.5 (3 ml) UD IH SCH ×4 (02:15→20:47)
[2018-06-23] MEDS: Pantoprazole 40 mg EC Tab PO SCH ×2 (05:36→17:45)
--- NOTE | 2018-06-23 08:05 | CP.PCM.PN ---
Subjective - Date & Time of Evaluation Date of Evaluation: 06/23/18 Time of Evaluation: 07:45 - Subjective Subjective: Patient was seen and examined in the morning. According to nursing report patient had a dark brown foul smelling watery bowel movement last night. On ROS patient had no complaints of nausea, vomiting, dizziness, chest pain, sob, palpitations, abdominal pain. Objective - Vital Signs/Intake and Output Vital Signs (last 24 hours): Temp Pulse Resp BP Pulse Ox 99.4 F 84 20 115/55 L 95 06/23/18 06:00 06/23/18 06:00 06/23/18 06:00 06/23/18 06:00 06/23/18 06:00 - Medications Medications: Current Medications Acetaminophen (Tylenol 325mg Tab) 650 mg PO Q6H PRN PRN Reason: Fever >100.4 F Albuterol/Ipratropium (Duoneb 3 Mg/0.5 Mg (3 Ml) Ud) 3 ml IH 0200,0800,1400, 2000 [facility] Last Admin: 06/23/18 07:27 Dose: 3 ml Amlodipine Besylate (Norvasc) 10 mg PO DAILY [facility] Last Admin: 06/22/18 10:29 Dose: 10 mg Aripiprazole (Abilify) 10 mg PO DAILY [facility] PRN Reason: Protocol Last Admin: 06/22/18 10:28 Dose: 10 mg Clonazepam (Klonopin) 0.5 mg PO DAILY [facility] PRN Reason: Protocol Last Admin: 06/22/18 10:42 Dose: 0.5 mg Enoxaparin Sodium (Lovenox) 40 mg SC 0600 [facility] PRN Reason: Protocol Last Admin: 06/22/18 05:54 Dose: 40 mg Escitalopram Oxalate (Lexapro) 20 mg PO DAILY [facility] Last Admin: 06/22/18 13:34 Dose: 20 mg Ferrous Gluconate (Fergon) 324 mg PO TID [facility] Last Admin: 06/22/18 18:21 Dose: 324 mg Losartan Potassium (Cozaar) 100 mg PO DAILY [facility] Last Admin: 06/22/18 10:29 Dose: 100 mg Nystatin (Mycostatin Cream) 0 ea TOP TID PRN PRN Reason: Rash Pantoprazole Sodium (Protonix Ec Tab) 40 mg PO 0600,1600 [facility] Last Admin: 06/23/18 05:36 Dose: 40 mg Potassium Chloride (Potassium Chloride Oral Soln) 40 meq PO TID [facility] Last Admin: 06/22/18 18:22 Dose: 40 meq Vitamin B Complex/Vit C/Folic Acid (Nephro-Luciano) 1 tab PO 0800 [facility] Last Admin: 06/22/18 08:45 Dose: 1 tab - Labs Labs: 06/18/18 06:00 06/22/18 06:20 - Constitutional Appears: Non-toxic, No Acute Distress - Head Exam Head Exam: NORMAL INSPECTION - Eye Exam Eye Exam: Normal appearance - ENT Exam ENT Exam: Mucous Membranes Moist - Respiratory Exam Respiratory Exam: NORMAL BREATHING PATTERN. absent: Accessory Muscle Use, Respiratory Distress - Cardiovascular Exam Cardiovascular Exam: absent: Bradycardia, Tachycardia - GI/Abdominal Exam GI & Abdominal Exam: Distended, Soft. absent: Firm, Guarding, Rigid, Tenderness , Rebound - Neurological Exam Neurological Exam: Alert, Awake, Oriented x3 - Psychiatric Exam Psychiatric exam: Normal Affect, Normal Mood - Skin Skin Exam: Dry, Intact, Normal Color, Warm Assessment and Plan - Assessment and Plan (Free Text) Assessment: This is a 73 year old M s/p perforated appendicitis and superior gluteal artery bleed, in TCU for management of persistent diarrhea, hypokalemia, weakness. Plan: f/u AM H/H follow potassium level --> replete PRN f/u GI plans for colonoscopy PT recommending MENA --> f/u dispo planning Further recs per Dr. Chano Brenner DO PGY3
[2018-06-23 08:08] LABS: HEMOGLOBIN 9.8 g/dL (14.0-18.0); MEAN CELL VOLUME 85.4 fl (80.0-105.0); MEAN CORPUSCULAR HGB CONC 31.6 g/dl (31.0-37.0); MEAN PLATELET VOLUME 9.3 fl (7.0-11.0); RBC 3.63 10^6/uL (3.5-6.1); RED CELL DISTRIBUTION WIDTH 14.3 % (11.5-14.5); WHITE BLOOD COUNT 8.5 10^3/ul (4.5-11.0)
[2018-06-23 08:52] LABS: BLOOD UREA NITROGEN 16 mg/dL (7-21); CALCIUM 8.3 mg/dL (8.4-10.5); GFR NON-AFRICAN AMERICAN > 60
[2018-06-23] MEDS ORDERED: Potassium Chloride 20 mEq ER Tab PO ONE (09:15)
[2018-06-23] MEDS: Multivitamin Vitamin B Complex (Nephro-Vite) Tab PO SCH (10:31)
[2018-06-23] MEDS: Potassium Chloride 40 mEq/30 ml LIQ UD PO SCH ×3 (10:32→17:46)
--- NOTE | 2018-06-23 11:50 | PN ---
DATE: 06/23/2018 SUBJECTIVE: The patient is in bed, in no acute distress, nontoxic. PHYSICAL EXAMINATION: VITAL SIGNS: On exam, temperature is 99, blood pressure is 115/50, respiratory rate 20, heart rate of 88. HEENT: Examination of HEENT is unremarkable. NECK: Supple. LUNGS: Have decreased breath sounds. HEART: Normal S1, S2. ABDOMEN: Soft, nontender. LABORATORY DATA: Laboratory examination reveals white count of 8.5, hemoglobin of 9, platelets of 312. Chemistries reveals a BUN of 16, creatinine of 0.7. Stool for C. Diff is negative antigen and toxin. Review of orders reveals the patient to be off of antibiotics. ASSESSMENT AND PLAN: A 73-year-old male seen earlier today with history of intra-abdominal abscess and this patient with status post acute appendicitis, appendiceal abscesses, status post Interventional Radiology-guided drainage, fluid collection, recurrent abscess or hematoma, status post cholecystectomy, prostatectomy, history of depression, history of pneumonia and currently, the patient is off of antibiotics and afebrile. C. Diff is negative. We will follow with you. Jose Melendrez MD
--- NOTE | 2018-06-23 13:33 | CP.PCM.PN ---
Subjective - Date & Time of Evaluation Date of Evaluation: 06/23/18 Time of Evaluation: 13:33 - Subjective Subjective: Nephrology Consultation Note: Assessment: Stable Hypokalemia likely due to decreased oral intake and increased GI loss metabolic alkalosis perforated appendicitis with multiple loculated fluid collections in the pelvis Anemia of acute blood loss hx of CA prostate, depression elevated BP, no hx of HTN Plan received 60 of k today continue with iron and MVI for anemia BP control with meds as ordered. on losartan to 100 mg/day and norvasc 10 mg/day Dose meds/antibiotics for normal GFR. S: seen and examined no complaitns, still w/ poor po intake Physical Examination: General Appearance: comfortable, in no acute respiratory distress, co-operative Vitals reviewed and noted as below Head; Atraumatic, normocephalic ENT: no ulcers no thrush. Tongue is midline. Oropharynx: no rash or ulcers. EYES: Pupils are equal, round and reactive to light accommodation. Eye muscles and extraocular movement intact. Sclera is anicteric. Neck; supple no lymphadenopathy, no thyromegaly or bruit Lungs: Normal respiratory rate/effort. Breath sounds bilateral clear anteriorly Heart: Normal rate. s1s2 normal. No rub or gallop. Extremities: no edema. No varicose veins Neurological: Patient is alert, awake and oriented to person, place and time. No focal deficit. Strength bilateral appropriate and equal Skin: Warm and dry. Normal turgor. No rash. Palpitation: Normal elasticity for age Abdomen: Abdomen is soft/distended. Bowel sounds +. There is no abdominal tenderness, no guarding/rigidity no organomegaly Psych: limited insight and flat affect/mood MSK: no joint tenderness or swelling. Digits and nails normal, no deformity : kidney or bladder not palpable Labs/imaging reviewed. Past medical history, past surgical history, family history, social history, allergy reviewed and noted as below Family hx: no hx of CKD. Rest non-contributory imaging: normal adrenals and kidneys Mg 2.0 TTKG 4 shravan 1 renin 0.1 Objective - Vital Signs/Intake and Output Vital Signs (last 24 hours): Temp Pulse Resp BP Pulse Ox 99.4 F 84 20 118/61 95 06/23/18 06:00 06/23/18 06:00 06/23/18 06:00 06/23/18 10:33 06/23/18 06:00 - Medications Medications: Current Medications Acetaminophen (Tylenol 325mg Tab) 650 mg PO Q6H PRN PRN Reason: Fever >100.4 F Albuterol/Ipratropium (Duoneb 3 Mg/0.5 Mg (3 Ml) Ud) 3 ml IH 0200,0800,1400, 2000 [facility] Last Admin: 06/23/18 07:27 Dose: 3 ml Amlodipine Besylate (Norvasc) 10 mg PO DAILY [facility] Last Admin: 06/23/18 10:33 Dose: 10 mg Aripiprazole (Abilify) 10 mg PO DAILY [facility] PRN Reason: Protocol Last Admin: 06/23/18 10:34 Dose: 10 mg Clonazepam (Klonopin) 0.5 mg PO DAILY [facility] PRN Reason: Protocol Last Admin: 06/23/18 10:38 Dose: 0.5 mg Enoxaparin Sodium (Lovenox) 40 mg SC 0600 [facility] PRN Reason: Protocol Last Admin: 06/22/18 05:54 Dose: 40 mg Escitalopram Oxalate (Lexapro) 20 mg PO DAILY [facility] Last Admin: 06/23/18 10:34 Dose: 20 mg Ferrous Gluconate (Fergon) 324 mg PO TID [facility] Last Admin: 06/23/18 10:34 Dose: 324 mg Losartan Potassium (Cozaar) 100 mg PO DAILY [facility] Last Admin: 06/23/18 10:34 Dose: 100 mg Nystatin (Mycostatin Cream) 0 ea TOP TID PRN PRN Reason: Rash Pantoprazole Sodium (Protonix Ec Tab) 40 mg PO 0600,1600 [facility] Last Admin: 06/23/18 05:36 Dose: 40 mg Potassium Chloride (Potassium Chloride Oral Soln) 40 meq PO TID [facility] Last Admin: 06/23/18 10:32 Dose: 40 meq Vitamin B Complex/Vit C/Folic Acid (Nephro-Luciano) 1 tab PO 0800 [facility] Last Admin: 06/23/18 10:31 Dose: 1 tab - Labs Labs: 06/23/18 07:00 06/23/18 07:00
[2018-06-23] MEDS: Enoxaparin 40 mg Syringe SC SCH (17:46)
[2018-06-24] MEDS: Albuterol-Ipratrop 3 mg / 0.5 (3 ml) UD IH SCH ×4 (01:31→20:54)
[2018-06-24] MEDS: Enoxaparin 40 mg Syringe SC SCH (05:59)
[2018-06-24] MEDS: Pantoprazole 40 mg EC Tab PO SCH ×2 (05:59→16:01)
[2018-06-24 08:25] LABS: BASO # 0.02 K/mm3 (0.0-2.0); BASO % 0.2 % (0.0-3.0); EOS # 0.2 (0.0-0.7); EOS % 2.8 % (1.5-5.0); GRAN # 6.43 (1.4-6.5); GRAN % 78.4 % (50.0-68.0); HEMOGLOBIN 9.8 g/dL (14.0-18.0); LYMPH % 11.6 % (22.0-35.0); MEAN CELL VOLUME 85.8 fl (80.0-105.0); MEAN CORPUSCULAR HEMOGLOBIN 26.3 pg (25.0-35.0); MEAN CORPUSCULAR HGB CONC 30.7 g/dl (31.0-37.0); MEAN PLATELET VOLUME 9.3 fl (7.0-11.0); MONO # 0.6 (0.1-0.6); RBC 3.72 10^6/uL (3.5-6.1); RED CELL DISTRIBUTION WIDTH 14.4 % (11.5-14.5); WHITE BLOOD COUNT 8.2 10^3/ul (4.5-11.0)
--- NOTE | 2018-06-24 08:28 | CP.PCM.PN ---
Subjective - Date & Time of Evaluation Date of Evaluation: 06/24/18 Time of Evaluation: 07:00 - Subjective Subjective: General Surgery progress note for Dr. Lam Pt seen and examined at bedside this AM. Pt continues to have loose "patrick water " bowel movements, 2-3/day. Per nurse the stool smells like a GI bleed. Objective - Vital Signs/Intake and Output Vital Signs (last 24 hours): Temp Pulse Resp BP Pulse Ox 99.2 F 87 18 140/69 93 L 06/24/18 06:00 06/24/18 06:00 06/24/18 06:00 06/24/18 06:00 06/24/18 06:00 Intake and Output: 06/24/18 06/24/18 06:59 18:59 Intake Total 360 Balance 360 - Medications Medications: Current Medications Acetaminophen (Tylenol 325mg Tab) 650 mg PO Q6H PRN PRN Reason: Fever >100.4 F Albuterol/Ipratropium (Duoneb 3 Mg/0.5 Mg (3 Ml) Ud) 3 ml IH 0200,0800,1400, 2000 [facility] Last Admin: 06/24/18 07:40 Dose: 3 ml Amlodipine Besylate (Norvasc) 10 mg PO DAILY [facility] Last Admin: 06/23/18 10:33 Dose: 10 mg Aripiprazole (Abilify) 10 mg PO DAILY [facility] PRN Reason: Protocol Last Admin: 06/23/18 10:34 Dose: 10 mg Clonazepam (Klonopin) 0.5 mg PO DAILY [facility] PRN Reason: Protocol Last Admin: 06/23/18 10:38 Dose: 0.5 mg Escitalopram Oxalate (Lexapro) 20 mg PO DAILY [facility] Last Admin: 06/23/18 10:34 Dose: 20 mg Ferrous Gluconate (Fergon) 324 mg PO TID [facility] Last Admin: 06/23/18 17:45 Dose: 324 mg Losartan Potassium (Cozaar) 100 mg PO DAILY [facility] Last Admin: 06/23/18 10:34 Dose: 100 mg Nystatin (Mycostatin Cream) 0 ea TOP TID PRN PRN Reason: Rash Pantoprazole Sodium (Protonix Ec Tab) 40 mg PO 0600,1600 [facility] Last Admin: 06/24/18 05:59 Dose: 40 mg Potassium Chloride (Potassium Chloride Oral Soln) 40 meq PO TID [facility] Last Admin: 06/23/18 17:46 Dose: 40 meq Vitamin B Complex/Vit C/Folic Acid (Nephro-Luciano) 1 tab PO 0800 [facility] Last Admin: 06/23/18 10:31 Dose: 1 tab - Labs Labs: 06/23/18 07:00 06/23/18 07:00 - Constitutional Appears: Well, Non-toxic, No Acute Distress - Head Exam Head Exam: ATRAUMATIC, NORMOCEPHALIC - Eye Exam Eye Exam: Normal appearance. absent: Conjunctival injection, Scleral icterus - ENT Exam ENT Exam: Mucous Membranes Moist, Normal Oropharynx - Respiratory Exam Respiratory Exam: NORMAL BREATHING PATTERN. absent: Accessory Muscle Use, Respiratory Distress - Cardiovascular Exam Cardiovascular Exam: REGULAR RHYTHM - GI/Abdominal Exam GI & Abdominal Exam: Soft. absent: Distended, Tenderness - Extremities Exam Extremities Exam: absent: Calf Tenderness, Pedal Edema, Tenderness - Neurological Exam Neurological Exam: Alert, Awake, Oriented x3 - Psychiatric Exam Psychiatric exam: Flat Affect, Normal Mood - Skin Skin Exam: Diaphoretic, Normal Color, Warm Assessment and Plan - Assessment and Plan (Free Text) Assessment: 73M with improving pelvic fluid collections s/p removal of percutaneous drain for perforated appendix, now with persistent diarrhea, occult GI bleed, depression and deconditioning Plan: Continue to encourage PT--will need MENA for further strengthening per PT recs Add metamucil and PRN immodium for diarrhea Continue current diet Continue psych meds per psych recs Will discuss disposition with case management Discussed and examined with Dr. Chano Dia, PGY2
[2018-06-24 08:30] LABS: BLOOD UREA NITROGEN 14 mg/dL (7-21); CALCIUM 8.6 mg/dL (8.4-10.5); GFR NON-AFRICAN AMERICAN > 60
[2018-06-24] MEDS: Multivitamin Vitamin B Complex (Nephro-Vite) Tab PO SCH (08:53)
[2018-06-24] MEDS: Potassium Chloride 40 mEq/30 ml LIQ UD PO SCH ×3 (11:00→17:39)
[2018-06-24] MEDS: Psyllium Packet PO SCH (11:03)
--- NOTE | 2018-06-24 14:02 | PN ---
DATE: 06/24/2018 SUBJECTIVE: The patient is in bed, in no acute distress, nontoxic. OBJECTIVE: VITAL SIGNS: On exam, temperature is 97, blood pressure is 140/70, respiratory rate of 16. HEENT: Examination is unremarkable. NECK: Supple. LUNGS: Have decreased breath sounds. HEART: Normal S1, S2. ABDOMEN: Soft, nontender. DATA: Laboratory examination reveals a white count of 8.2, hemoglobin of 9, platelets of 316. BUN of 14, creatinine of 0.7. ASSESSMENT AND PLAN: This is a 73-year-old with a history of intra-abdominal abscess and status post acute appendicitis, appendiceal abscess, status post IR guided drainage fluid collection and now with hematoma, status post cholecystectomy, prostatectomy, history of depression, currently off of antibiotics, afebrile, normal white count; however, the patient is at risk for developing nosocomial infections. Jose Melendrez MD
[2018-06-24 16:04] VITALS: RESP 20; TEMP 98.8
--- NOTE | 2018-06-24 21:55 | CP.PCM.PN ---
Subjective - Date & Time of Evaluation Date of Evaluation: 06/24/18 Time of Evaluation: 11:30 - Subjective Subjective: Feels slightly better, still has diarrhea Objective - Vital Signs/Intake and Output Vital Signs (last 24 hours): Temp Pulse Resp BP Pulse Ox 98.8 F 85 20 140/92 H 94 L 06/24/18 16:00 06/24/18 16:00 06/24/18 16:00 06/24/18 16:00 06/24/18 16:00 Intake and Output: 06/24/18 06/25/18 18:59 06:59 Intake Total 380 Output Total 300 Balance 80 - Medications Medications: Current Medications Acetaminophen (Tylenol 325mg Tab) 650 mg PO Q6H PRN PRN Reason: Fever >100.4 F Albuterol/Ipratropium (Duoneb 3 Mg/0.5 Mg (3 Ml) Ud) 3 ml IH 0200,0800,1400, 2000 [facility] Last Admin: 06/24/18 20:54 Dose: 3 ml Amlodipine Besylate (Norvasc) 10 mg PO DAILY [facility] Last Admin: 06/24/18 11:05 Dose: 10 mg Aripiprazole (Abilify) 10 mg PO DAILY [facility] PRN Reason: Protocol Last Admin: 06/24/18 11:02 Dose: 10 mg Clonazepam (Klonopin) 0.5 mg PO DAILY [facility] PRN Reason: Protocol Last Admin: 06/24/18 11:08 Dose: 0.5 mg Enoxaparin Sodium (Lovenox) 40 mg SC 0600 [facility] PRN Reason: Protocol Escitalopram Oxalate (Lexapro) 20 mg PO DAILY [facility] Last Admin: 06/24/18 11:04 Dose: 20 mg Ferrous Gluconate (Fergon) 324 mg PO TID [facility] Last Admin: 06/24/18 17:39 Dose: 324 mg Loperamide HCl (Imodium) 2 mg PO QID PRN PRN Reason: Diarrhea Last Admin: 06/24/18 16:00 Dose: 2 mg Losartan Potassium (Cozaar) 100 mg PO DAILY [facility] Last Admin: 06/24/18 11:06 Dose: 100 mg Nystatin (Mycostatin Cream) 0 ea TOP TID PRN PRN Reason: Rash Pantoprazole Sodium (Protonix Ec Tab) 40 mg PO 0600,1600 [facility] Last Admin: 06/24/18 16:01 Dose: 40 mg Potassium Chloride (Potassium Chloride Oral Soln) 40 meq PO TID [facility] Last Admin: 06/24/18 17:39 Dose: 40 meq Psyllium Hydrophilic Mucilloid (Hydrocil Instant) 1 pkt PO DAILY [facility] Last Admin: 06/24/18 11:03 Dose: 1 pkt Vitamin B Complex/Vit C/Folic Acid (Nephro-Luciano) 1 tab PO 0800 [facility] Last Admin: 06/24/18 08:53 Dose: 1 tab - Labs Labs: 06/24/18 07:30 06/24/18 08:00 - Constitutional Appears: Well, No Acute Distress - Head Exam Head Exam: ATRAUMATIC, NORMOCEPHALIC - Eye Exam Eye Exam: EOMI, PERRL - ENT Exam ENT Exam: Mucous Membranes Moist, Normal Exam - Neck Exam Neck Exam: Full ROM. absent: Lymphadenopathy - Respiratory Exam Respiratory Exam: NORMAL BREATHING PATTERN. absent: Accessory Muscle Use, Rales - Cardiovascular Exam Cardiovascular Exam: +S1, +S2. absent: +S4 - GI/Abdominal Exam GI & Abdominal Exam: Soft. absent: Tenderness, Mass - Extremities Exam Extremities Exam: Full ROM. absent: Calf Tenderness - Neurological Exam Neurological Exam: Alert, Oriented x3 Assessment and Plan - Assessment and Plan (Free Text) Assessment: This patient has fluid collection status removal of percutaneous drain for perforated appendex Now has loose bowl movement Patient did have some improvement via diarrhea while on QUESTRON which has been discontinued in view of some abdominal discomfort Stool for C.Diff negative On Immodium PRN basis
[2018-06-25] MEDS: Albuterol-Ipratrop 3 mg / 0.5 (3 ml) UD IH SCH ×3 (02:29→13:06)
[2018-06-25] MEDS ORDERED: Enoxaparin 40 mg Syringe SC SCH (06:00)
[2018-06-25] MEDS: Pantoprazole 40 mg EC Tab PO SCH (06:13)
[2018-06-25 07:33] LABS: BLOOD UREA NITROGEN 16 mg/dL (7-21); CALCIUM 8.4 mg/dL (8.4-10.5); GFR NON-AFRICAN AMERICAN > 60
--- NOTE | 2018-06-25 07:51 | CP.PCM.PN ---
Subjective - Date & Time of Evaluation Date of Evaluation: 06/25/18 Time of Evaluation: 07:10 - Subjective Subjective: Micky Barrera, , PGY-1 Surgery Progress Note for Dr. Madden Patient was seen and examined at bedside this AM with surgery team. He reports loose bowel movements have improved s/p imodium. He states that he would prefer to go home rather than subacute rehab. Per PT notes, he participated on Monday and if he continues to participate, they feel he can go home with home nursing. He is motivated to work with PT today. Objective - Vital Signs/Intake and Output Vital Signs (last 24 hours): Temp Pulse Resp BP Pulse Ox 98.8 F 85 20 140/92 H 94 L 06/24/18 16:00 06/24/18 16:00 06/24/18 16:00 06/24/18 16:00 06/24/18 16:00 Intake and Output: 06/25/18 06/25/18 06:59 18:59 Intake Total 380 Output Total 300 Balance 80 - Medications Medications: Current Medications Acetaminophen (Tylenol 325mg Tab) 650 mg PO Q6H PRN PRN Reason: Fever >100.4 F Albuterol/Ipratropium (Duoneb 3 Mg/0.5 Mg (3 Ml) Ud) 3 ml IH 0200,0800,1400, 2000 [facility] Last Admin: 06/25/18 07:14 Dose: 3 ml Amlodipine Besylate (Norvasc) 10 mg PO DAILY [facility] Last Admin: 06/24/18 11:05 Dose: 10 mg Aripiprazole (Abilify) 10 mg PO DAILY [facility] PRN Reason: Protocol Last Admin: 06/24/18 11:02 Dose: 10 mg Clonazepam (Klonopin) 0.5 mg PO DAILY [facility] PRN Reason: Protocol Last Admin: 06/24/18 11:08 Dose: 0.5 mg Enoxaparin Sodium (Lovenox) 40 mg SC 0600 [facility] PRN Reason: Protocol Last Admin: 06/25/18 06:13 Dose: 40 mg Escitalopram Oxalate (Lexapro) 20 mg PO DAILY [facility] Last Admin: 06/24/18 11:04 Dose: 20 mg Ferrous Gluconate (Fergon) 324 mg PO TID [facility] Last Admin: 06/24/18 17:39 Dose: 324 mg Loperamide HCl (Imodium) 2 mg PO QID PRN PRN Reason: Diarrhea Last Admin: 06/24/18 22:27 Dose: 2 mg Losartan Potassium (Cozaar) 100 mg PO DAILY [facility] Last Admin: 06/24/18 11:06 Dose: 100 mg Nystatin (Mycostatin Cream) 0 ea TOP TID PRN PRN Reason: Rash Pantoprazole Sodium (Protonix Ec Tab) 40 mg PO 0600,1600 [facility] Last Admin: 06/25/18 06:13 Dose: 40 mg Potassium Chloride (Potassium Chloride Oral Soln) 40 meq PO TID [facility] Last Admin: 06/24/18 17:39 Dose: 40 meq Psyllium Hydrophilic Mucilloid (Hydrocil Instant) 1 pkt PO DAILY [facility] Last Admin: 06/24/18 11:03 Dose: 1 pkt Vitamin B Complex/Vit C/Folic Acid (Nephro-Luciano) 1 tab PO 0800 [facility] Last Admin: 06/24/18 08:53 Dose: 1 tab - Labs Labs: 06/24/18 07:30 06/25/18 06:30 - Constitutional Appears: Non-toxic, No Acute Distress - Head Exam Head Exam: ATRAUMATIC, NORMAL INSPECTION - Eye Exam Eye Exam: Normal appearance - ENT Exam ENT Exam: Mucous Membranes Moist - Neck Exam Neck Exam: Full ROM, Normal Inspection - Respiratory Exam Respiratory Exam: absent: Accessory Muscle Use, Respiratory Distress - Cardiovascular Exam Cardiovascular Exam: +S1, +S2 - GI/Abdominal Exam GI & Abdominal Exam: Distended (improving), Soft. absent: Guarding, Tenderness , Rebound - Extremities Exam Extremities Exam: Full ROM, Normal Inspection - Neurological Exam Neurological Exam: Alert, Awake, Oriented x3 - Psychiatric Exam Psychiatric exam: Normal Affect, Normal Mood - Skin Skin Exam: Dry, Intact, Normal Color, Warm Assessment and Plan - Assessment and Plan (Free Text) Assessment: 73 year old M s/p perforated appendicitis and superior gluteal artery bleed, in TCU for management of persistent diarrhea, hypokalemia, and weakness improving with PT. Plan: -Per PT note on Monday, patient stable for discharge with home nursing if he continues to participate in PT -Emphasized importance of his participation today -F/u home health arrangements per SW -Continue imodium for diarrhea management -K of 3.5 today -Will continue 40 mEq K-dur BID at home with close outpatient f/u -Emphasized importance of GI f/u for outpatient colonoscopy after he leaves Case and plan discussed with Dr. Chano Barrera, DO IM Resident PGY-1
[2018-06-25] MEDS ORDERED: Potassium Chloride 20 mEq ER Tab PO ONE (08:05)
[2018-06-25] MEDS: Psyllium Packet PO SCH (10:20)
--- NOTE | 2018-06-25 11:53 | CP.PCM.DIS ---
Provider - Provider Date of Admission: 06/15/18 19:01 Attending physician: Gunner Madden MD Primary care physician: NO PRIMARY CARE PROVIDER Consults: ID Nephrology Psychiatry Time Spent in preparation of Discharge (in minutes): 30 Diagnosis - Discharge Diagnosis (1) Hypokalemia due to inadequate potassium intake Status: Chronic Priority: Low (2) Acute appendicitis Status: Resolved Priority: Low (3) Hemorrhage of pelvic artery Status: Resolved Priority: High Hospital Course - Lab Results Lab Results: Micro Results 06/20/18 09:00 Stool C. difficile Antigen & Toxin A,B (M - Final Most Recent Lab Values WBC 8.2 10^3/ul (4.5-11.0) 06/24/18 07:30 RBC 3.72 10^6/uL (3.5-6.1) 06/24/18 07:30 Hgb 9.8 g/dL (14.0-18.0) L 06/24/18 07:30 Hct 31.9 % (42.0-52.0) L 06/24/18 07:30 MCV 85.8 fl (80.0-105.0) 06/24/18 07:30 MCH 26.3 pg (25.0-35.0) 06/24/18 07:30 MCHC 30.7 g/dl (31.0-37.0) L 06/24/18 07:30 RDW 14.4 % (11.5-14.5) 06/24/18 07:30 Plt Count 316 10^3/uL (120.0-450.0) 06/24/18 07:30 MPV 9.3 fl (7.0-11.0) 06/24/18 07:30 Gran % 78.4 % (50.0-68.0) H 06/24/18 07:30 Lymph % (Auto) 11.6 % (22.0-35.0) L 06/24/18 07:30 [place] % (Auto) 7.0 % (1.0-6.0) H 06/24/18 07:30 Eos % (Auto) 2.8 % (1.5-5.0) 06/24/18 07:30 Baso % (Auto) 0.2 % (0.0-3.0) 06/24/18 07:30 Gran # 6.43 (1.4-6.5) 06/24/18 07:30 Lymph # (Auto) 1.0 (1.2-3.4) L 06/24/18 07:30 [place] # (Auto) 0.6 (0.1-0.6) 06/24/18 07:30 Eos # (Auto) 0.2 (0.0-0.7) 06/24/18 07:30 Baso # (Auto) 0.02 K/mm3 (0.0-2.0) 06/24/18 07:30 Sodium 139 mmol/L (132-148) 06/25/18 06:30 Potassium 3.5 mmol/L (3.6-5.0) L 06/25/18 06:30 Chloride 105 mmol/L (98-107) 06/25/18 06:30 Carbon Dioxide 26 mmol/L (21-33) 06/25/18 06:30 Anion Gap 11 (10-20) 06/25/18 06:30 BUN 16 mg/dL (7-21) 06/25/18 06:30 Creatinine 0.6 mg/dl (0.8-1.5) L 06/25/18 06:30 Est GFR ( Amer) > 60 06/25/18 06:30 Est GFR (Non-Af Amer) > 60 06/25/18 06:30 Random Glucose 116 mg/dL (70-110) H 06/25/18 06:30 Lactic Acid 0.6 mmol/L (0.7-2.1) L 06/21/18 11:15 Calcium 8.4 mg/dL (8.4-10.5) 06/25/18 06:30 Phosphorus 3.9 mg/dL (2.5-4.5) 06/24/18 08:00 Magnesium 2.0 mg/dL (1.7-2.2) 06/24/18 08:00 Total Bilirubin 0.7 mg/dL (0.2-1.3) 06/16/18 09:05 AST 60 U/L (17-59) H 06/16/18 09:05 ALT 80 U/L (7-56) H 06/16/18 09:05 Alkaline Phosphatase 64 U/L (38-126) 06/16/18 09:05 Total Protein 5.7 g/dL (5.8-8.3) L 06/16/18 09:05 Albumin 2.5 g/dL (3.0-4.8) L 06/16/18 09:05 Globulin 3.2 gm/dL 06/16/18 09:05 Albumin/Globulin Ratio 0.8 (1.1-1.8) L 06/16/18 09:05 TSH 3rd Generation 1.93 mIU/mL (0.46-4.68) 06/21/18 10:50 - Hospital Course Hospital Course: 73M w/ hx depression and prostate ca s/p prostatectomy, recently with perforated appendicitis and a superior gluteal artery bleed s/p IR drain removal on 05/29. He was followed in the hospital after the bleed, with persistent intra-abdominal fluid collections. He required no further surgical intervention. Pt has continued to have persistent diarrhea, as well as blood in the stool. He was transferred to TCU for further PT/OT evaluation/treatment, management of diarrhea, and monitoring/treatment of hypokalemia. While in TCU, his initial PT sessions were more difficult for him and it was thought that he would require subacute rehab. However, he improved significantly during his PT session on Monday and PT now agrees that he may be discharged home with home nursing. Home nursing has been arranged per social work. His main complaint at this time is persistent diarrhea which has improved s/p imodium. He denies any further fever/chills, abdominal pain, n/v, black or bloody stools. Overall, he feels stable to be discharged home with home nursing and f/u with Dr. Gtz (PMD ) and Dr. Chandler (GI) for colonoscopy. Diagnostics and Imaging performed while in TCU CT abd pelv 06/19/18 IMPRESSION: The colon is distended similar to the previous study. Air-fluid levels are seen. This could be due to partial distal obstruction or ileus. The pelvic fluid collections have decreased in size. There is a persistent collection on the right side of the bladder measuring 4.8 x 7.7 cm. This has decreased in size. Collections above the bladder are significantly smaller. There is a persistent collection on the left side of the pelvis that is unchanged. This is a summarization please refer to [facility] for complete records. Discharge Exam - Head Exam Head Exam: ATRAUMATIC (see exam performed from progress note earlier this AM), NORMAL INSPECTION Discharge Plan - Discharge Medications Prescriptions: Ferrous Gluconate [Fergon] 324 mg PO TID 30 Days #90 tab Potassium Chloride 40 meq PO TID 30 Days #180 tablet.er - Follow Up Plan Condition: GOOD Disposition: HOME/ ROUTINE Patient education suggested?: Yes Additional Instructions: Please take 2 new medications: K-Dur 2 tablets three times daily with meals Ferrous sulfate 1 tablet three times daily with meals Resume all other home medications Follow up with Dr. Gtz in 7-10 days Follow up with Dr. Chandler, beater out leveling machine, in 7-10 days for colonoscopy Follow up with your primary psychiatrist Referrals: PCP,NO [Primary Care Provider] -
--- NOTE | 2018-06-25 12:32 | CP.PCM.PN ---
Subjective - Date & Time of Evaluation Date of Evaluation: 06/25/18 Time of Evaluation: 11:20 - Subjective Subjective: Comfortable in bed, no fevers, no abdominal pain, stools are soft but not watery , no nausea. Objective - Vital Signs/Intake and Output Vital Signs (last 24 hours): Temp Pulse Resp BP Pulse Ox 98.8 F 85 20 140/92 H 94 L 06/24/18 16:00 06/24/18 16:00 06/24/18 16:00 06/24/18 16:00 06/24/18 16:00 Intake and Output: 06/25/18 06/25/18 06:59 18:59 Intake Total 380 Output Total 300 Balance 80 - Medications Medications: Current Medications Acetaminophen (Tylenol 325mg Tab) 650 mg PO Q6H PRN PRN Reason: Fever >100.4 F Albuterol/Ipratropium (Duoneb 3 Mg/0.5 Mg (3 Ml) Ud) 3 ml IH 0200,0800,1400, 2000 [facility] Last Admin: 06/25/18 07:14 Dose: 3 ml Amlodipine Besylate (Norvasc) 10 mg PO DAILY [facility] Last Admin: 06/24/18 11:05 Dose: 10 mg Aripiprazole (Abilify) 10 mg PO DAILY [facility] PRN Reason: Protocol Last Admin: 06/25/18 10:19 Dose: 10 mg Clonazepam (Klonopin) 0.5 mg PO DAILY [facility] PRN Reason: Protocol Last Admin: 06/24/18 11:08 Dose: 0.5 mg Enoxaparin Sodium (Lovenox) 40 mg SC 0600 [facility] PRN Reason: Protocol Last Admin: 06/25/18 06:13 Dose: 40 mg Escitalopram Oxalate (Lexapro) 20 mg PO DAILY [facility] Last Admin: 06/24/18 11:04 Dose: 20 mg Ferrous Gluconate (Fergon) 324 mg PO TID [facility] Last Admin: 06/24/18 17:39 Dose: 324 mg Loperamide HCl (Imodium) 2 mg PO QID PRN PRN Reason: Diarrhea Last Admin: 06/24/18 22:27 Dose: 2 mg Losartan Potassium (Cozaar) 100 mg PO DAILY [facility] Last Admin: 06/25/18 10:20 Dose: 100 mg Nystatin (Mycostatin Cream) 0 ea TOP TID PRN PRN Reason: Rash Pantoprazole Sodium (Protonix Ec Tab) 40 mg PO 0600,1600 [facility] Last Admin: 06/25/18 06:13 Dose: 40 mg Potassium Chloride (Potassium Chloride Oral Soln) 40 meq PO TID [facility] Last Admin: 06/24/18 17:39 Dose: 40 meq Psyllium Hydrophilic Mucilloid (Hydrocil Instant) 1 pkt PO DAILY [facility] Last Admin: 06/25/18 10:20 Dose: 1 pkt Vitamin B Complex/Vit C/Folic Acid (Nephro-Luciano) 1 tab PO 0800 [facility] Last Admin: 06/24/18 08:53 Dose: 1 tab - Labs Labs: 06/24/18 07:30 06/25/18 06:30 - Constitutional Appears: No Acute Distress, Chronically Ill - Head Exam Head Exam: NORMAL INSPECTION - ENT Exam ENT Exam: Mucous Membranes Moist - Respiratory Exam Respiratory Exam: Decreased Breath Sounds - Cardiovascular Exam Cardiovascular Exam: +S1, +S2 - GI/Abdominal Exam GI & Abdominal Exam: Soft. absent: Tenderness Assessment and Plan - Assessment and Plan (Free Text) Plan: Assessment history of intra-abdominal abscesses in this patient S/P acute appendicitis with appendiceal abscess S/P IR-guided drainage; with fluid collections currently, abscesses or hematoma S/P cholecystectomy S/P prostatectomy history of depression history of pneumonia Plan continue to monitor clinically off antibiotics - as discussed with Surgery, their thought is that the fluid collections may be hematomas - since patient is having LBM and may be antibiotic-associated, will continue to monitor off antibiotics for now, monitor BM's; repeat stool for C. diff. is negative surgery will also continue to monitor
[2018-06-25 14:21] VITALS: PULSE 86; O2SAT 97
--- NOTE | 2018-06-25 15:09 | CP.PCM.PN ---
Subjective - Date & Time of Evaluation Date of Evaluation: 06/25/18 Time of Evaluation: 15:08 - Subjective Subjective: Nephrology Consultation Note: Assessment: Stable Hypokalemia likely due to decreased oral intake and increased GI loss metabolic alkalosis perforated appendicitis with multiple loculated fluid collections in the pelvis Anemia of acute blood loss hx of CA prostate, depression elevated BP, no hx of HTN Plan supplement potassium 40 meq TID continue with iron and MVI for anemia BP control with meds as ordered. on losartan to 100 mg/day and norvasc 10 mg/day Dose meds/antibiotics for normal GFR. Glycemic control Further work up/management as per primary team, ID pt to f/up renal clinic 1 week post d/c Thanks for allowing me to participate in care of your patient. Will follow patient with you. Please call if any Qs. Dr Fred Vieyra Office: [phone] Chief Complaint; loose stool Reason for consult: hypokalemia HPI: Pt is a 73 year old male with hx of depression, CA prostate came initially with perforated appendicitis which was managed conservatively with IR guided drainage with catheter which got removed later and led to anemia/blood loss now s/p coiling of R superior gluteal artery also treated for LLL pneumonia , multiple loculated fluid collections in the pelvis being initially planned for IR intervention and or ex lap but now for conservative management found to have HTN with hypokalemia hence consulted renal pt denies nausea/vomitting. c/o daily loose stool and diarrhoea. reports decreased intake and poor appetite. no SOB or chest pain ROS: low appetite and oral intake. Cardiovascular: No chest pain. Pulmonary: No shortness of breath Gastrointestinal: no abdominal pain No nausea. No vomiting. denies loose stool Genitourinary: No pain while urinating. Denies blood in urine. All other negative except as mentioned in HPI Physical Examination: General Appearance: comfortable, in no acute respiratory distress, co-operative Vitals reviewed and noted as below Head; Atraumatic, normocephalic ENT: no ulcers no thrush. Tongue is midline. Oropharynx: no rash or ulcers. EYES: Pupils are equal, round and reactive to light accommodation. Eye muscles and extraocular movement intact. Sclera is anicteric. Neck; supple no lymphadenopathy, no thyromegaly or bruit Lungs: Normal respiratory rate/effort. Breath sounds bilateral clear anteriorly Heart: Normal rate. s1s2 normal. No rub or gallop. Extremities: no edema. No varicose veins Neurological: Patient is alert, awake and oriented to person, place and time. No focal deficit. Strength bilateral appropriate and equal Skin: Warm and dry. Normal turgor. No rash. Palpitation: Normal elasticity for age Abdomen: Abdomen is soft/distended. Bowel sounds +. There is no abdominal tenderness, no guarding/rigidity no organomegaly Psych: limited insight and flat affect/mood MSK: no joint tenderness or swelling. Digits and nails normal, no deformity : kidney or bladder not palpable Labs/imaging reviewed. Past medical history, past surgical history, family history, social history, allergy reviewed and noted as below Family hx: no hx of CKD. Rest non-contributory imaging: normal adrenals and kidneys Mg 2.0 TTKG 4 shravan 1 renin 0.1 Objective - Vital Signs/Intake and Output Vital Signs (last 24 hours): Temp Pulse Resp BP Pulse Ox 98.8 F 86 20 140/92 H 97 06/24/18 16:00 06/25/18 13:30 06/24/18 16:00 06/24/18 16:00 06/25/18 13:30 Intake and Output: 06/25/18 06/25/18 06:59 18:59 Intake Total 380 Output Total 300 Balance 80 - Medications Medications: Current Medications Acetaminophen (Tylenol 325mg Tab) 650 mg PO Q6H PRN PRN Reason: Fever >100.4 F Albuterol/Ipratropium (Duoneb 3 Mg/0.5 Mg (3 Ml) Ud) 3 ml IH 0200,0800,1400, 2000 [facility] Last Admin: 06/25/18 13:06 Dose: 3 ml Amlodipine Besylate (Norvasc) 10 mg PO DAILY SAIGE Last Admin: 06/24/18 11:05 Dose: 10 mg Aripiprazole (Abilify) 10 mg PO DAILY SAIGE PRN Reason: Protocol Last Admin: 06/25/18 10:19 Dose: 10 mg Clonazepam (Klonopin) 0.5 mg PO DAILY SAIGE PRN Reason: Protocol Last Admin: 06/24/18 11:08 Dose: 0.5 mg Enoxaparin Sodium (Lovenox) 40 mg SC 0600 SAIGE PRN Reason: Protocol Last Admin: 06/25/18 06:13 Dose: 40 mg Escitalopram Oxalate (Lexapro) 20 mg PO DAILY [facility] Last Admin: 06/24/18 11:04 Dose: 20 mg Ferrous Gluconate (Fergon) 324 mg PO TID [facility] Last Admin: 06/24/18 17:39 Dose: 324 mg Loperamide HCl (Imodium) 2 mg PO QID PRN PRN Reason: Diarrhea Last Admin: 06/24/18 22:27 Dose: 2 mg Losartan Potassium (Cozaar) 100 mg PO DAILY [facility] Last Admin: 06/25/18 10:20 Dose: 100 mg Nystatin (Mycostatin Cream) 0 ea TOP TID PRN PRN Reason: Rash Pantoprazole Sodium (Protonix Ec Tab) 40 mg PO 0600,1600 [facility] Last Admin: 06/25/18 06:13 Dose: 40 mg Potassium Chloride (Potassium Chloride Oral Soln) 40 meq PO TID [facility] Last Admin: 06/24/18 17:39 Dose: 40 meq Psyllium Hydrophilic Mucilloid (Hydrocil Instant) 1 pkt PO DAILY [facility] Last Admin: 06/25/18 10:20 Dose: 1 pkt Vitamin B Complex/Vit C/Folic Acid (Nephro-Luciano) 1 tab PO 0800 [facility] Last Admin: 06/24/18 08:53 Dose: 1 tab - Labs Labs: 06/24/18 07:30 06/25/18 06:30
[2018-06-25] MEDS: Multivitamin Vitamin B Complex (Nephro-Vite) Tab PO SCH (16:13)
[2018-06-25] MEDS: Potassium Chloride 40 mEq/30 ml LIQ UD PO SCH (16:14)
[2018-06-25 16:15] VITALS: BP 149/75
== END 2018-06-25 16:40 | disposition home health service (06) | DRG 945 ==
LOC: TRCU 19:01
PROVIDERS: ADMIT Surgery; ATTEND Surgery
PROC: F07Z9ZZ Gait Training/Functional Ambulation Treatment (ICD-10-PCS; principal; 2018-06-16)
PROC: 3E0F7GC Introduction of Other Therapeutic Substance into Respiratory Tract, Via Natural or Artificial Opening (ICD-10-PCS; 2018-06-16)
PROC: F08Z4ZZ Home Management Treatment (ICD-10-PCS; 2018-06-17)
DX: R53.1 Weakness (principal); J18.9 Pneumonia, unspecified organism; D62 Acute posthemorrhagic anemia; E87.3 Alkalosis; E87.6 Hypokalemia; K21.9 Gastro-esophageal reflux disease without esophagitis; R19.7 Diarrhea, unspecified; F32.9 Major depressive disorder, single episode, unspecified; Z90.79 Acquired absence of other genital organ(s); Z85.46 Personal history of malignant neoplasm of prostate